=== PATIENT | male | born 1970 | race Caucasian/White ===

== ENCOUNTER 2017-04-02 13:02 | Emergency (ER) ==
[2017-04-02 13:10] VITALS: BP 115/82; TEMP 97; BMI 37.0
--- NOTE | 2017-04-02 13:18 | ED.PDOC ---
General ED Provider: Dr. RUKHSANA CANALES Chief Complaint: Knee Pain/Injury Stated Complaint: Left leg fell through porch floor. Right leg twisted at knee while bearing all his weight. Knee is very painful at rest and with any weight- bearing or ROM. PMH of right TKA. Time Seen by Physician: 13:15 Mode of Arrival: Wheelchair Information Source: Patient Primary Care Provider: JENSEN GOTTI Nursing and Triage Documentation Reviewed and Agree: Yes Musculoskeletal Complaint Exam - Knee Pain Complaint/Exam Mechanism of Injury: Reports: Trauma Onset/Duration: 2 hours Symptoms Are: Still present Onset of Pain: Reports: Immediate Initial Severity: Severe Current Severity: Severe Location: Reports: Diffuse Character: Reports: Sharp (sharp pain with any attempt at ROM or weight-bearing) , Aching, Throbbing Alleviating: Reports: Rest (pain eases up, not resolved) Aggravating: Reports: Movement, Weight bearing Associated Signs and Symptoms: Reports: Swelling Able to Bear Weight: Yes (with difficulty) Related History: Reports: Similar episode (right TKA 16 years ago) Septic Arthritis Risk Factors: Reports: Prosthesis (Right TKA 16 years ago) Gout Risk Factors: Reports: >40 years old, Male Related Surgical History: Reports: Right Knee Knee Findings: Present: Swelling, Tenderness (medial and lateral tenderness, mild patellar tenderness. Pain with any attempt at ROM. No gross deformity.), Limited range of motion Tenderness: Present: Joint Nadege Test Positive: No Rick Test Positive: No Limited Range of Motion: Present: Active, Passive, Flexion, Extension, Degrees ( any ROM increases pain) Differential Diagnoses: Closed Fracture, Sprain Review of Systems - Review Of Systems Constitutional: Reports: No symptoms Musculoskeletal: Reports: Joint pain (right knee), Joint swelling (right knee) Skin: Reports: No symptoms Neurological: Reports: No symptoms All Other Systems: Reviewed and Negative Past Medical History - Past Medical History Previously Healthy: Yes Endocrine: Reports: None Cardiovascular: Reports: None Respiratory: Reports: None Hematological: Reports: None Gastrointestinal: Reports: None Genitourinary: Reports: None Neuro/Psych: Reports: None Musculoskeletal: Reports: Arthritis (rheumatoid arthritis) Cancer: Reports: None - Surgical History General Surgical History: Reports: Orthopedic (right TKA) - Family History Family History: Reports: Unknown - Social History Smoking Status: Never smoker Hx Substance Use: No Alcohol Screening: Occasionally Lives: With family - Immunizations Tetanus Shot up to Date: No Influenza Vaccine within 12 Months: No Pneumococcal Vaccine up to Date: No Physical Exam - Physical Exam Appearance: Well-appearing, Well-nourished Ill-appearing: None Pain Distress: Moderate Musculoskeletal: Normal strength, No calf tenderness, Limited ROM (right knee pain with any attempt at ROM, active or passive), Edema (mild swelling about right knee bilaterally and prepatellar) Skin: Warm, Dry, Normal color Neurological: Sensation intact, Motor intact, Reflexes intact, Cranial nerves intact, Alert, Oriented Psychiatric: Affect appropriate, Mood appropriate Interpretation - Radiology Interpretation Radiology Interpretation By: Radiologist Radiology Results: Negative Exam Interpreted: Other Xray Comments: Right knee: no fractures, arthroplasty equipment normal in appearance Critical Care Note - Critical Care Note Total Time (mins): 0 Course - Course Orders, Labs, Meds: Orders Category Date Time Status KNEE, RIGHT 4 VIEWS Stat RADS 04/02/17 13:18 Completed Vital Signs: Temp Pulse Resp BP Pulse Ox 04/02/17 13:05 97.0 F L 80 16 115/82 96 Departure - Departure Time of Disposition: 14:05 Disposition: HOME SELF-CARE Discharge Problem: Right knee sprain Instructions: Knee Sprain (ED) Condition: Good Pt referred to PMD for follow-up: No (See doctor if no better in one week) Additional Instructions: No weight-bearing on right leg for one week (use crutches) Allergies/Adverse Reactions: Allergies terbinafine [From Lamisil] Adverse Reaction (Verified 04/02/17 13:05) Home Medications: Ambulatory Orders Acetaminophen with Codeine [Tylenol #3 Tab] 1 tab PO Q4H PRN #20 tablet Disposition Discussed With: Patient
--- NOTE | 2017-04-02 13:57 | DI ---
EXAM: Three views of the right knee HISTORY: Right knee twisting injury and arthroplasty. COMPARISON: None FINDINGS: Right knee arthroplasty hardware is present without evidence of hardware fracture or loosen ing. There is scattered degenerative disease. There is degenerative disease and osteophyte formatio n of the patella. Soft tissues are normal. IMPRESSION: 1. No displaced fracture or dislocation of the right knee. Right knee arthroplasty hardware normal in appearance. 2. Scattered degenerative disease.
== END 2017-04-02 14:15 | disposition home or self-care (01) ==
LOC: ED 13:02
DX: S83.91XA Sprain of unspecified site of right knee, initial encounter (principal); W17.2XXA Fall into hole, initial encounter; Z96.651 Presence of right artificial knee joint
CPT/HCPCS: 99283

== ENCOUNTER 2017-08-16 07:38 | Outpatient (CLI) ==
--- NOTE | 2017-08-16 08:53 | US ---
EXAM: Ultrasound retroperitoneal complete. HISTORY: Hematuria. COMPARISON: None available. TECHNIQUE: Multiple rowe scale and color Doppler images. FINDINGS: Right kidney measures 11.4 x 6.3 x 5.3 cm. The left kidney measures 12 x 6.2 x 6.1 cm. C ortical echogenicity is normal. There is no hydronephrosis. Urinary bladder is unremarkable. IMPRESSION: No acute sonographic abnormality of the kidneys or bladder.
== END 2017-08-16 07:39 | disposition home or self-care (01) ==
LOC: RAD 07:38
PROVIDERS: ATTEND Family Medicine
DX: R31.9 Hematuria, unspecified (principal)
CPT/HCPCS: 76770

== ENCOUNTER 2017-09-20 14:57 | Outpatient (CLI) ==
--- NOTE | 2017-09-20 15:36 | DI ---
EXAM: PA and lateral views of the chest HISTORY: Cough. COMPARISON: Chest x-ray 09/05/2010 FINDINGS: The cardiomediastinal silhouette is normal. There is no pneumothorax or pleural effusion. There is no consolidation, nodule or mass. The osseous structures demonstrate degenerative disease of the spine. IMPRESSION: No acute cardiopulmonary process
== END 2017-09-20 14:58 | disposition home or self-care (01) ==
LOC: RAD 14:57
PROVIDERS: ATTEND Family Medicine
DX: R05 Cough (principal)

== ENCOUNTER 2017-10-11 11:49 | Outpatient (CLI) ==
--- NOTE | 2017-10-11 13:04 | DI ---
EXAM: PA and lateral views of the chest HISTORY: Cough. COMPARISON: Chest x-ray 09/20/2017 and multiple priors FINDINGS: The cardiomediastinal silhouette is normal. There is no pneumothorax or pleural effusion. There is no consolidation, nodule or mass. The osseous structures are stable. IMPRESSION: No acute cardiopulmonary process
== END 2017-10-11 11:50 | disposition home or self-care (01) ==
LOC: RAD 11:49
PROVIDERS: ATTEND Family Medicine
DX: R05 Cough (principal)

== ENCOUNTER 2017-11-28 19:41 | Emergency (ER) ==
[2017-11-28 19:53] VITALS: BP 136/89; TEMP 98.6; BMI 33.9
--- NOTE | 2017-11-28 20:23 | ED.PDOC ---
General ED Provider: Dr. NIKOLAI RUSSELL Chief Complaint: Tooth Problem Stated Complaint: Patient is a 47 year old male who comes to ER stating iliana the broke the bottom part of his molar 2 days ago Now the pain is worse. Has an Apt to see Dentist Soon. Time Seen by Physician: 20:21 Mode of Arrival: Walk-In Information Source: Patient Primary Care Provider: JENSEN GOTTI Nursing and Triage Documentation Reviewed and Agree: Yes Reviewed sepsis parameters & appropriate labs ordered?: No System Inflammatory Response Syndrome: Not Applicable Sepsis Protocol: For patient's 13 years and over: Temp is 96.8 and below OR 101 and greater Pulse >90 BPM Resp >20/minute Acutely Altered Mental Status Are patient's symptoms suggestive of a new infection, such as: -Pneumonia -Skin, Soft Tissue -Endocarditis -UTI -Bone, Joint Infection -Implantable Device -Acute Abdominal Infection -Wound Infection -Meningitis -Blood Stream Catheter Infection -Unknown System Inflammatory Response Syndrome: Not Applicable EENT Complaint Exam - Dental/Oral Complaint/Exam Mechanism of Injury: No known trauma Onset/Duration: 2 days ago Symptoms Are: Still present Timing: Constant Initial Severity: Moderate Current Severity: Severe Location: Right lower molar Character: Reports: Aching, Throbbing Aggravating: Reports: Heat, Cold, Chewing Alleviating: Reports: None Associated Signs and Symptoms: Reports: Swelling Cardiac Risk Factors: Reports: None Tooth Findings: Present: Gross decay, Dental fracture Cervical Lymphadenopathy Present: No Facial Swelling Present: No Bleeding Present: No Oropharynx Findings: Absent: Clots, Active bleeding Septal Hematoma: No Foreign Body Present: No Dysphagia Present: No Drooling Present: No Asymmetrical Tonsillar Swelling Present: No Uvula Midline: No Jennifer-tonsillar Fluctuence: No Trismus Present: No Palatal Petechiae Present: No Scarlatinaform Rash Present: No Lesions: Absent: Lip, Gums, Tongue, Buccal Mucosa, Pharynx Exanthem: Absent: Lip, Gums, Tongue, Buccal Mucosa, Pharynx Vesicles: Absent: Lip, Gums, Tongue, Buccal Mucosa, Pharynx Teeth Picture: 1 - Fractured Differential Diagnoses: Dental Caries, Fractured Tooth Review of Systems - Review Of Systems Constitutional: Reports: No symptoms Eyes: Reports: No symptoms Ears, Nose, Mouth, Throat: Reports: Mouth pain Respiratory: Reports: No symptoms Cardiac: Reports: No symptoms GI: Reports: No symptoms : Reports: No symptoms All Other Systems: Reviewed and Negative Past Medical History - Past Medical History Previously Healthy: Yes Endocrine: Reports: None Cardiovascular: Reports: None Respiratory: Reports: None Hematological: Reports: None Gastrointestinal: Reports: None Genitourinary: Reports: None Neuro/Psych: Reports: None Musculoskeletal: Reports: Arthritis (rheumatoid arthritis) Cancer: Reports: None - Surgical History General Surgical History: Reports: Orthopedic (right TKA) - Family History Family History: Reports: Unknown - Social History Smoking Status: Never smoker Hx Substance Use: No Alcohol Screening: Occasionally - Immunizations Tetanus Shot up to Date: Yes Influenza Vaccine within 12 Months: No Pneumococcal Vaccine up to Date: No Physical Exam - Physical Exam Appearance: Ill-appearing Pain Distress: Moderate Eyes: PAWEL, EOMI, Conjunctiva clear ENT: Ears normal, Nose normal, Oropharynx normal Neck: Supple Respiratory: Airway patent, Breath sounds clear, Breath sounds equal, Respirations nonlabored Cardiovascular: RRR, Pulses normal, No rub, No murmur GI/: Soft, Nontender, No masses, Bowel sounds normal, No Organomegaly Musculoskeletal: Normal strength, ROM intact, No edema, No calf tenderness Skin: Warm, Dry, Normal color Neurological: Sensation intact, Motor intact, Reflexes intact, Cranial nerves intact, Alert, Oriented Psychiatric: Affect appropriate, Mood appropriate Critical Care Note - Critical Care Note Total Time (mins): 0 Course - Course Vital Signs: Temp Pulse Resp BP Pulse Ox 11/28/17 19:41 98.6 F 88 14 136/89 95 Departure - Departure Time of Disposition: 20:22 Disposition: HOME SELF-CARE Discharge Problem: Dental abscess, Pain, dental Instructions: Dental Abscess (ED), Toothache (ED) Condition: Stable Pt referred to PMD for follow-up: Yes IPMP verified?: Yes Additional Instructions: Take Medications as prescribed. Follow up with Your dentist in 3 days Prescriptions: Amoxicillin [Amoxil] 500 mg PO TID #30 capsule Ibuprofen [Motrin] 600 mg PO Q6H PRN #30 tablet PRN Reason: Analgesia Allergies/Adverse Reactions: Allergies terbinafine [From Lamisil] Adverse Reaction (Verified 11/28/17 19:45) Home Medications: Ambulatory Orders Amoxicillin [Amoxil] 500 mg PO TID #30 capsule 11/28/17 Ibuprofen [Motrin] 600 mg PO Q6H PRN #30 tablet 11/28/17 Methotrexate Sodium [Methotrexate] 2.5 mg PO DAILY 11/28/17 Prednisone 5 mg PO DAILY 11/28/17 Disposition Discussed With: Patient
[2017-11-28] MEDS ORDERED: AMOXIL PO STA (20:27)
[2017-11-28] MEDS ORDERED: MOTRIN PO STA (20:27)
== END 2017-11-28 20:35 | disposition home or self-care (01) ==
LOC: ED 19:41
DX: K04.7 Periapical abscess without sinus (principal); K08.89 Other specified disorders of teeth and supporting structures; S02.5XXA Fracture of tooth (traumatic), initial encounter for closed fracture; K02.7 Dental root caries
CPT/HCPCS: 99282

== ENCOUNTER 2018-01-21 07:55 | Day surgery (SDC) ==
[2018-01-21] MEDS ORDERED: LIDOCAINE 1% 20 ML MDV ID STA (09:34)
[2018-01-21] MEDS ORDERED: DIPRIVAN 20 ML VIAL IVP ONE (10:45)
[2018-01-21] MEDS ORDERED: VERSED ONE (10:45)
[2018-01-21] MEDS ORDERED: ANECTINE ONE (10:45)
[2018-01-21] MEDS ORDERED: SUBLIMAZE ONE (10:45)
[2018-01-21 11:56] VITALS: BP 96/64; TEMP 97.8
--- NOTE | 2018-01-25 09:35 | OP ---
PREOPERATIVE DIAGNOSIS: RULE OUT CARCINOMA BASE OF THE TONGUE POSTOPERATIVE DIAGNOSIS: INFLAMMATION OF TONGUE OPERATION: DIRECT LARYNGOSCOPY, BIOPSY AND EXTRACT OF MOLAR TOOTH. PROCEDURE: The patient was taken to surgery, placed on the table and general anesthesia was administered. Anterior laryngoscope was inserted down to the vocal cords which revealed no evidence of edema. The epiglottis appeared to be free of disease. The scope was removed and through the scope the area of irritation at the base of the tongue was biopsied and sent off for permanent section. The right lower molar was then grasped with dental forceps and then extracted. Bleeding controlled with packing. The patient was then extubated and return to the recovery room in satisfactory condition. YENNY
== END 2018-01-21 12:10 | disposition home or self-care (01) ==
LOC: SURG 07:55
PROVIDERS: ATTEND Otolaryngology
DX: K14.0 Glossitis (principal)

== ENCOUNTER 2018-01-26 16:08 | Outpatient (CLI) | END 2018-01-26 16:09 | disposition home or self-care (01) | LOC: RHC-LAB 16:08 | PROVIDERS: ATTEND Emergency Medicine | DX: M19.90 Unspecified osteoarthritis, unspecified site (principal); E66.9 Obesity, unspecified; E78.5 Hyperlipidemia, unspecified | CPT/HCPCS: 36415; 80053; 80061; 84443; 85025 ==

== ENCOUNTER 2018-02-25 03:09 | Emergency (ER) ==
[2018-02-25 03:15] VITALS: BP 132/88; TEMP 97.4; BMI 28.5
--- NOTE | 2018-02-25 03:39 | ED.PDOC ---
General ED Provider: Dr. NIKOLAI RUSSELL Chief Complaint: Nausea/Vomiting Stated Complaint: Patient is a 47 year old male who complains of a sudden onset of nausea/vomiting x 5 since 0100 tonight with Mid to right sided abdominal pain which he describes as cramping and that it radiates to right side of back. He states that he ate some pork chops and potatoes. Denies any EOTH or drugs. Time Seen by Physician: 03:37 Mode of Arrival: Wheelchair Information Source: Patient Exam Limitations: No limitations Primary Care Provider: JENSEN GOTTI Nursing and Triage Documentation Reviewed and Agree: Yes Does patient meet sepsis criteria?: No If yes, has appropriate treatment been initiated?: No System Inflammatory Response Syndrome: Not Applicable Sepsis Protocol: For patient's 13 years and over: Temp is 96.8 and below OR 101 and greater Pulse >90 BPM Resp >20/minute Acutely Altered Mental Status Are patient's symptoms suggestive of a new infection, such as: -Pneumonia -Skin, Soft Tissue -Endocarditis -UTI -Bone, Joint Infection -Implantable Device -Acute Abdominal Infection -Wound Infection -Meningitis -Blood Stream Catheter Infection -Unknown GI Complaint Exam - Abdominal Pain Complaint/Exam Onset: Sudden Duration: 1 and half hours Symptoms Are: Still present Timing: Constant Initial Severity: Severe Current Severity: Severe Location of Pain: RUQ, RLQ Radiates To: Reports: Back Character: Reports: Cramping Alleviating: Reports: None Associated Signs and Symptoms: Reports: Back pain, Nausea, Vomiting. Denies: Chest pain, Constipation AAA Risk Factors: Reports: None Cardiac Risk Factors: Reports: None Testicular Torsion Risk Factors: Reports: None Surgical Obstruction Risk Factors: Reports: None Related Surgical History: Reports: None Abdominal Findings: Present: Other (Diffuse abdominal tenderness with guarding. ) Differential Diagnoses: Appendicitis, Bowel Obstruction, Constipation, Diverticulitis, Gastroenteritis, Pancreatitis, PUD, UTI Review of Systems - Review Of Systems Constitutional: Reports: No symptoms Eyes: Reports: No symptoms Ears, Nose, Mouth, Throat: Reports: No symptoms Respiratory: Reports: No symptoms Cardiac: Reports: No symptoms GI: Reports: Abdominal pain, Nausea, Vomiting : Reports: No symptoms Musculoskeletal: Reports: No symptoms Skin: Reports: No symptoms Neurological: Reports: Anxiety Endocrine: Reports: No symptoms Hematologic/Lymphatic: Reports: No symptoms All Other Systems: Reviewed and Negative Past Medical History - Past Medical History Previously Healthy: Yes Endocrine: Reports: None Cardiovascular: Reports: None Respiratory: Reports: None Hematological: Reports: None Gastrointestinal: Reports: None Genitourinary: Reports: None Neuro/Psych: Reports: None Musculoskeletal: Reports: Arthritis (rheumatoid arthritis) Cancer: Reports: None - Surgical History General Surgical History: Reports: Orthopedic (right TKA). Denies: Appendectomy , Cholecystectomy - Family History Family History: Reports: Unknown - Social History Smoking Status: Never smoker Hx Substance Use: No Alcohol Screening: None - Immunizations Tetanus Shot up to Date: Yes Influenza Vaccine within 12 Months: No Pneumococcal Vaccine up to Date: No Physical Exam - Physical Exam Appearance: Ill-appearing Ill-appearing: Moderate Pain Distress: Severe Eyes: PAWEL, EOMI, Conjunctiva clear Neck: Supple Respiratory: Airway patent, Breath sounds clear, Breath sounds equal, Respirations nonlabored Cardiovascular: RRR, Pulses normal, No rub, No murmur GI/: Tender (diffusely ) Musculoskeletal: Normal strength, ROM intact, No edema, No calf tenderness Skin: Warm, Dry, Normal color Neurological: Alert, Oriented Psychiatric: Anxious Critical Care Note - Critical Care Note Total Time (mins): 0 Course - Course Hematology/Chemistry: 02/25/18 03:55 02/25/18 03:55 Orders, Labs, Meds: Lab Review 02/25/18 02/25/18 03:55 03:55 WBC 11.36 H RBC 4.44 L Hgb 12.8 L Hct 38.7 L MCV 87.2 MCH 28.8 MCHC 33.1 RDW Coeff of Shivam 15.5 H Plt Count 285 Immature Gran % (Auto) 0.4 Neut % (Auto) 73.9 Lymph % (Auto) 17.9 [place] % (Auto) 5.7 Eos % (Auto) 1.7 Baso % (Auto) 0.4 Immature Gran # (Auto) 0.1 Neut # (Auto) 8.4 H Lymph # (Auto) 2.0 [place] # (Auto) 0.7 Eos # (Auto) 0.2 Baso # (Auto) 0.0 Sodium 140 Potassium 3.6 Chloride 110 H Carbon Dioxide 21 Anion Gap 12.6 BUN 19 H Creatinine 0.84 Estimated GFR (MDRD) 98.00 BUN/Creatinine Ratio 22.61 Glucose 105 H Calcium 9.3 Total Bilirubin 1.0 AST 25 ALT 28 Alkaline Phosphatase 90 Total Protein 8.7 H Albumin 3.0 L Globulin 5.7 Albumin/Globulin Ratio 0.53 Amylase 66 Lipase 38 Orders Category Date Time Status ED IV/MEDIPORT/POWERPORT .ONCE EMERGENCY 02/25/18 03:35 Active AMYLASE Stat LAB 02/25/18 03:55 Completed CBC W/ AUTO DIFF Stat LAB 02/25/18 03:55 Completed COMPREHENSIVE METABOLIC PANEL Stat LAB 02/25/18 03:55 Completed LIPASE Stat LAB 02/25/18 03:55 Completed URINALYSIS C & S IF INDICATED Stat LAB 02/25/18 03:35 Uncollected 0.9 % Sodium Chloride [Saline Flush] MEDS 02/25/18 03:35 Ordered 1 syr IVF PRN PRN Dicyclomine Inj [Bentyl] MEDS 02/25/18 03:48 Discontinued 20 mg IM ONCE STA Ketorolac Tromethamine [Toradol] MEDS 02/25/18 03:35 Discontinued 30 mg IVP ONCE STA Ondansetron HCl/Pf [Zofran 4 mg/2 ml] MEDS 02/25/18 03:35 Discontinued 4 mg IVP ONCE STA Pantoprazole Sodium [Protonix IV] MEDS 02/25/18 03:35 Discontinued 40 mg IVP ONCE STA Sodium Chloride 0.9% [Sodium Chloride] 1,000 ml MEDS 02/25/18 03:[address] ABD/PEL WO RENAL STONE PROT Stat RADS 02/25/18 03:35 Taken Medications Generic Name Dose Route Start Last Admin Trade Name Freq PRN Reason Stop Dose Admin Sodium Chloride 1,000 mls @ 1,000 mls/hr 02/25/18 03:35 02/25/18 04:13 Sodium Chloride IV 02/25/18 04:34 1,000 mls/hr BOLUS STA Administration Sodium Chloride 1 syr 02/25/18 03:35 Saline Flush IVF PRN PRN To flush IV Discontinued Medications Generic Name Dose Route Start Last Admin Trade Name Freq PRN Reason Stop Dose Admin Dicyclomine HCl 20 mg 02/25/18 03:48 02/25/18 04:09 Bentyl IM 02/25/18 03:49 20 mg ONCE STA Administration Ketorolac Tromethamine 30 mg 02/25/18 03:35 02/25/18 04:13 Toradol IVP 02/25/18 03:36 30 mg ONCE STA Administration Ondansetron HCl 4 mg 02/25/18 03:35 02/25/18 04:13 Zofran 4 Mg/2 Ml IVP 02/25/18 03:36 4 mg ONCE STA Administration Pantoprazole Sodium 40 mg 02/25/18 03:35 02/25/18 04:12 Protonix Iv IVP 02/25/18 03:36 40 mg ONCE STA Administration Vital Signs: Temp Pulse Resp BP Pulse Ox 02/25/18 03:10 97.4 F L 93 H 22 132/88 98 Departure - Departure Time of Disposition: 05:15 Disposition: HOME SELF-CARE Discharge Problem: Nausea, Vomiting, Gastritis and duodenitis Instructions: Gastritis (ED), Duodenitis (ED) Condition: Fair Pt referred to PMD for follow-up: Yes IPMP verified?: No Additional Instructions: Push Fluids and Electrolytes Take medications as prescribed Follow up with PCP in 3 days Prescriptions: Dicyclomine HCl [Bentyl] 10 mg PO TID PRN #20 capsule PRN Reason: Abdominal Pain Ondansetron HCl [Zofran Tab] 4 mg PO Q8H PRN #14 tablet PRN Reason: Nausea / Vomiting Allergies/Adverse Reactions: Allergies terbinafine [From Lamisil] Adverse Reaction (Verified 02/25/18 03:15) Vomiting Home Medications: Ambulatory Orders Ibuprofen [Motrin] 600 mg PO Q6H PRN #30 tablet 11/28/17 Methotrexate Sodium [Methotrexate] 2.5 mg PO WEEKLY 11/28/17 Dicyclomine HCl [Bentyl] 10 mg PO TID PRN #20 capsule 02/25/18 Ondansetron HCl [Zofran Tab] 4 mg PO Q8H PRN #14 tablet 02/25/18 Disposition Discussed With: Patient, Family
[2018-02-25] MEDS: BENTYL IM STA (04:09)
[2018-02-25] MEDS: PROTONIX IV IVP STA (04:12)
[2018-02-25] MEDS: SODIUM CHLORIDE 1,000 ML IV STA (04:13)
[2018-02-25] MEDS: TORADOL IVP STA (04:13)
[2018-02-25] MEDS: ZOFRAN 4 MG/2 ML IVP STA (04:13)
--- NOTE | 2018-02-25 05:07 | CT ---
Exam: CT of the abdomen and pelvis without contrast History: Abdominal pain Technique: [address] of the abdomen and pelvis without intravascular contrast FINDINGS: The lung bases are clear. No significant liver abnormality. The adrenals, pancreas and spl een are unremarkable. The stomach and hiatus are unremarkable.Cholelithiasis with possible gallbladde r wall thickening and pericholecystic inflammation. Kidneys and proximal collecting system are unrema rkable. The appendix is normal. Bowel loops demonstrate normal caliber. No inflamatory change seen in the mesentery or retroperitoneum. Vascular structures appear normal. Pelvic genitourinary structures appear normal. Pelvic bowel loops are unremarkable. No inflammatory c hange in the pelvic fat. No acute abnormality of the abdominal or pelvic skeleton. Impression: 1. Cholelithiasis with distended gallbladder, suspected gallbladder wall thickening and subtle peric holecystic inflammation. Correlate for cholecystitis. 2. No acute findings of the abdomen or pelvis otherwise.
[2018-02-25] MEDS: DEMEROL 25 MG/ML VIAL IVP STA (05:19)
== END 2018-02-25 05:20 | disposition home or self-care (01) ==
LOC: ED 03:09
DX: K29.70 Gastritis, unspecified, without bleeding (principal); K29.80 Duodenitis without bleeding
CPT/HCPCS: 36415; 74176; 80053; 82150; 83690; 85025; 96361; 96372; 96375; 99283

== ENCOUNTER 2018-03-28 13:43 | Outpatient (CLI) | END 2018-03-28 13:44 | disposition home or self-care (01) | LOC: RHC-LAB 13:43 | PROVIDERS: ATTEND Nurse Practitioner Family | DX: R61 Generalized hyperhidrosis (principal); R63.8 Other symptoms and signs concerning food and fluid intake; R11.2 Nausea with vomiting, unspecified | CPT/HCPCS: 36415; 80053; 85025 ==

== ENCOUNTER 2018-07-14 11:55 | Emergency (ER) ==
[2018-07-14 12:00] VITALS: BP 116/80; TEMP 98.6; BMI 31.1
--- NOTE | 2018-07-14 12:25 | ED.PDOC ---
General ED Provider: Dr. ANDRE MEJIA Chief Complaint: Hand Pain/Injury Stated Complaint: LEFT HAND PAIN NONE INJURY HISTORY OF R.A. Time Seen by Physician: 12:00 (SEE PHOTOS NO INJURY NURSE PRESENT ) Information Source: Patient Exam Limitations: No limitations Primary Care Provider: MEGAN MAY Nursing and Triage Documentation Reviewed and Agree: Yes Does patient meet sepsis criteria?: No System Inflammatory Response Syndrome: Not Applicable Sepsis Protocol: For patient's 13 years and over: Temp is 96.8 and below OR 101 and greater Pulse >90 BPM Resp >20/minute Acutely Altered Mental Status Are patient's symptoms suggestive of a new infection, such as: -Pneumonia -Skin, Soft Tissue -Endocarditis -UTI -Bone, Joint Infection -Implantable Device -Acute Abdominal Infection -Wound Infection -Meningitis -Blood Stream Catheter Infection -Unknown Musculoskeletal Complaint Exam - Hand/Wrist Complaint/Exam Location of Pain: Reports: Left, Hand Mechanism of Injury: Reports: No known trauma Onset/Duration: TODAY BUT CHRONIC ISSUE Symptoms Are: Still present Onset of Pain: Reports: Hours Initial Severity: Moderate Current Severity: Mild Location: Reports: Discrete Character: Reports: Aching Alleviating: Reports: Rest Aggravating: Reports: Movement Differential Diagnoses: Tendonitis, Other (RA FLARE UP) Review of Systems - Review Of Systems Constitutional: Reports: No symptoms Eyes: Reports: No symptoms Ears, Nose, Mouth, Throat: Reports: No symptoms Respiratory: Reports: No symptoms Cardiac: Reports: No symptoms GI: Reports: No symptoms : Reports: No symptoms Musculoskeletal: Reports: Joint pain (HAND LEFT) Skin: Reports: No symptoms Neurological: Reports: No symptoms Endocrine: Reports: No symptoms Hematologic/Lymphatic: Reports: No symptoms All Other Systems: Reviewed and Negative Past Medical History - Past Medical History Previously Healthy: Yes Endocrine: Reports: None Cardiovascular: Reports: None Respiratory: Reports: None Hematological: Reports: None Gastrointestinal: Reports: None Genitourinary: Reports: None Neuro/Psych: Reports: None Musculoskeletal: Reports: Arthritis (rheumatoid arthritis) Cancer: Reports: None - Surgical History General Surgical History: Reports: Orthopedic (right TKA). Denies: Appendectomy , Cholecystectomy - Family History Family History: Reports: Unknown - Social History Smoking Status: Former smoker Hx Substance Use: No Alcohol Screening: None - Immunizations Tetanus Shot up to Date: Yes Influenza Vaccine within 12 Months: No Pneumococcal Vaccine up to Date: No Physical Exam - Physical Exam Appearance: Well-appearing, No pain distress, Well-nourished Eyes: PAWEL, EOMI, Conjunctiva clear ENT: Ears normal, Nose normal, Oropharynx normal Respiratory: Airway patent, Breath sounds clear, Breath sounds equal, Respirations nonlabored Cardiovascular: RRR, Pulses normal, No rub, No murmur GI/: Soft, Nontender, No masses, Bowel sounds normal, No Organomegaly Musculoskeletal: Limited ROM (SEE PHOTOS) Skin: Warm, Dry Neurological: Sensation intact, Motor intact, Reflexes intact, Cranial nerves intact, Alert, Oriented Psychiatric: Affect appropriate, Mood appropriate Critical Care Note - Critical Care Note Total Time (mins): 0 Course - Course Vital Signs: Temp Pulse Resp BP Pulse Ox 07/14/18 11:55 98.6 F 74 18 116/80 98 Departure - Departure Time of Disposition: 12:25 Disposition: HOME SELF-CARE Discharge Problem: Arthritis, rheumatoid Qualifiers: Rheumatoid arthritis location: hand Rheumatoid factor presence: unspecified presence Laterality: left Qualified Code(s): M06.9 - Rheumatoid arthritis, unspecified Instructions: Rheumatoid Arthritis (ED) Condition: Good Pt referred to PMD for follow-up: Yes IPMP verified?: No Additional Instructions: Please call your Family Physician as soon as possible to schedule a follow-up appointment. Prescriptions: Hydrocodone/Acetaminophen [[place] 10-325 Tablet] 1 each PO Q8HR #7 tablet Allergies/Adverse Reactions: Allergies terbinafine [From Lamisil] Adverse Reaction (Verified 02/25/18 03:15) Vomiting Home Medications: Ambulatory Orders Ibuprofen [Motrin] 600 mg PO Q6H PRN #30 tablet 11/28/17 Hydrocodone/Acetaminophen [[place] 10-325 Tablet] 1 each PO Q8HR #7 tablet
== END 2018-07-14 12:32 | disposition home or self-care (01) ==
LOC: ED 11:55
DX: M06.9 Rheumatoid arthritis, unspecified (principal)
CPT/HCPCS: 99282

== ENCOUNTER 2018-07-21 05:51 | Emergency (ER) ==
[2018-07-21 05:53] VITALS: BP 124/76; TEMP 97.6; BMI 33.9
--- NOTE | 2018-07-21 06:14 | ED.PDOC ---
General ED Provider: Dr. NIKOLAI RUSSELL Chief Complaint: Rash Stated Complaint: Patient is a 48 year old who complains of rash on the Torso, Arms and abdomen that started 1-2 days ago. Time Seen by Physician: 06:12 Mode of Arrival: Walk-In Information Source: Patient Exam Limitations: No limitations Primary Care Provider: MEGAN MAY Nursing and Triage Documentation Reviewed and Agree: Yes Does patient meet sepsis criteria?: No System Inflammatory Response Syndrome: Not Applicable Sepsis Protocol: For patient's 13 years and over: Temp is 96.8 and below OR 101 and greater Pulse >90 BPM Resp >20/minute Acutely Altered Mental Status Are patient's symptoms suggestive of a new infection, such as: -Pneumonia -Skin, Soft Tissue -Endocarditis -UTI -Bone, Joint Infection -Implantable Device -Acute Abdominal Infection -Wound Infection -Meningitis -Blood Stream Catheter Infection -Unknown Skin Complaint Exam - Skin Rash/Itching Complaint/Exam Onset/Duration: 2 days Symptoms Are: Still present Initial Severity: Moderate Current Severity: Moderate Location: Torsor area and left forearms Potential Exposures: Reports: Unknown Aggravating: Reports: None Alleviating: Reports: None Associated Signs and Symptoms: Denies: Difficulty breathing, Fever, Chills Skin Findings: Present: Urticaria, Maculae, Papules Differential Diagnoses: Allergic Reaction, Contact Dermatitis Review of Systems - Review Of Systems Constitutional: Reports: No symptoms Ears, Nose, Mouth, Throat: Reports: No symptoms Respiratory: Reports: No symptoms Cardiac: Reports: No symptoms GI: Reports: No symptoms : Reports: No symptoms Musculoskeletal: Reports: No symptoms Skin: Reports: Rash All Other Systems: Reviewed and Negative Past Medical History - Past Medical History Previously Healthy: Yes Endocrine: Reports: None Cardiovascular: Reports: None Respiratory: Reports: None Hematological: Reports: None Gastrointestinal: Reports: None Genitourinary: Reports: None Neuro/Psych: Reports: None Musculoskeletal: Reports: Arthritis (rheumatoid arthritis) Cancer: Reports: None - Surgical History General Surgical History: Reports: Orthopedic (right TKA). Denies: Appendectomy , Cholecystectomy - Family History Family History: Reports: Unknown - Social History Smoking Status: Never smoker Hx Substance Use: No Alcohol Screening: None - Immunizations Tetanus Shot up to Date: Yes Influenza Vaccine within 12 Months: No Pneumococcal Vaccine up to Date: No Physical Exam - Physical Exam Appearance: Obese Eyes: PAWEL, EOMI, Conjunctiva clear Neck: Supple Respiratory: Airway patent, Breath sounds clear, Breath sounds equal, Respirations nonlabored Cardiovascular: RRR, Pulses normal, No rub, No murmur GI/: Soft, Nontender, No masses, Bowel sounds normal, No Organomegaly Musculoskeletal: Normal strength Skin: Warm, Dry Neurological: Sensation intact, Motor intact, Reflexes intact, Cranial nerves intact, Alert, Oriented Psychiatric: Anxious Critical Care Note - Critical Care Note Total Time (mins): 0 Course - Course Orders, Labs, Meds: Orders Category Date Time Status Loratadine [Claritin] MEDS 07/21/18 06:23 Discontinued 10 mg PO ONCE STA Methylprednisolone Sod Succ/Pf [Solu-Medrol 125 mg] MEDS 07/21/18 06:22 Discontinued 125 mg IM ONCE STA Medications Discontinued Medications Generic Name Dose Route Start Last Admin Trade Name Freq PRN Reason Stop Dose Admin Loratadine 10 mg 07/21/18 06:23 07/21/18 06:32 Claritin PO 07/21/18 06:24 10 mg ONCE STA Administration Methylprednisolone Sodium Succinate 125 mg 07/21/18 06:22 07/21/18 06:31 Solu-Medrol 125 Mg IM 07/21/18 06:23 125 mg ONCE STA Administration Vital Signs: Temp Pulse Resp BP Pulse Ox 07/21/18 05:51 97.6 F 78 18 124/76 97 Departure - Departure Time of Disposition: 06:50 Disposition: HOME SELF-CARE Discharge Problem: Dermatitis, Pruritic rash Instructions: Dermatitis (ED) Condition: Fair Pt referred to PMD for follow-up: Yes IPMP verified?: No Additional Instructions: Take Medications as prescribed Follow up with PCP in 3 day Take over the counter Benadryl. ever6 hours as needed for itching. Take over the counter zantac as needed for itching. Prescriptions: Prednisone 20 mg PO DAILYWM #5 tablet Allergies/Adverse Reactions: Allergies terbinafine [From Lamisil] Adverse Reaction (Verified 07/21/18 05:53) Vomiting Home Medications: Ambulatory Orders Prednisone 20 mg PO DAILYWM #5 tablet 07/21/18 Disposition Discussed With: Patient
[2018-07-21] MEDS ORDERED: SOLU-MEDROL 125 MG IM STA (06:22)
[2018-07-21] MEDS ORDERED: CLARITIN PO STA (06:23)
== END 2018-07-21 07:17 | disposition home or self-care (01) ==
LOC: ED 05:51
DX: L30.9 Dermatitis, unspecified (principal)
CPT/HCPCS: 96372; 99282

== ENCOUNTER 2018-08-05 12:59 | Emergency (ER) ==
[2018-08-05 13:03] VITALS: BP 144/86; TEMP 97.6; BMI 30.5
== END 2018-08-05 14:30 | disposition left against medical advice (07) ==
LOC: ED 12:59
DX: R10.9 Unspecified abdominal pain (principal); R19.7 Diarrhea, unspecified

== ENCOUNTER 2018-08-05 17:49 | Emergency (ER) ==
[2018-08-05 18:00] VITALS: BP 150/70; TEMP 97.5; BMI 34.3
[2018-08-05] MEDS ORDERED: SODIUM CHLORIDE 1,000 ML IV STA (18:32)
[2018-08-05] MEDS ORDERED: DEMEROL 25 MG/ML VIAL IVP STA (18:32)
[2018-08-05] MEDS ORDERED: ZOFRAN 4 MG/2 ML IVP STA (18:32)
--- NOTE | 2018-08-05 19:41 | CT ---
EXAM: CT abdomen pelvis without contrast HISTORY: Abdominal pain and vomiting COMPARISON: CT abdomen pelvis 02/26/1929 TECHNIQUE: Serial axial images of the abdomen pelvis were performed from the lung bases through the inferior pelvis without contrast. These were viewed in multiple planes. FINDINGS: Lung bases are clear. Evaluation is limited due to lack of contrast. The liver is unremarkable. The gallbladder is minima lly distended. The adrenal glands are unremarkable. The kidneys are unremarkable. The spleen is no rmal. New pancreas is normal. Stomach is distended. Small bowel in the abdomen pelvis is unremarkable. The colon is unremarkable. No evidence of append icitis. The there are scattered nonenlarged mesenteric lymph nodes. Urinary bladder is distended. Prostate is normal. Osseous structures demonstrate multilevel scattered degenerative disease. IMPRESSION: The 1. No acute intra-abdominal or pelvic process to account for patient's symptoms. 2. Scattered mesenteric lymph nodes may represent reactive changes versus lymphadenitis.
--- NOTE | 2018-08-05 20:03 | ED.PDOC ---
General ED Provider: Dr. LAYNE MENEZES-ER Chief Complaint: Nausea/Vomiting Stated Complaint: nakul had vomiting and loose stools Time Seen by Physician: 19:00 Mode of Arrival: Walk-In Information Source: Patient Exam Limitations: No limitations Primary Care Provider: JENSEN GOTTI Nursing and Triage Documentation Reviewed and Agree: Yes Does patient meet sepsis criteria?: No System Inflammatory Response Syndrome: Not Applicable Sepsis Protocol: For patient's 13 years and over: Temp is 96.8 and below OR 101 and greater Pulse >90 BPM Resp >20/minute Acutely Altered Mental Status Are patient's symptoms suggestive of a new infection, such as: -Pneumonia -Skin, Soft Tissue -Endocarditis -UTI -Bone, Joint Infection -Implantable Device -Acute Abdominal Infection -Wound Infection -Meningitis -Blood Stream Catheter Infection -Unknown GI Complaint Exam - Vomiting/Diarrhea Complaint/Exam Onset/Duration: 24 hrs Symptoms Are: Still present Initial Severity: Mild Current Severity: Mild Character of Vomiting: Reports: Bilious Character of Diarrhea: Reports: Watery Aggravating: Reports: None Alleviating: Reports: None Associated Signs and Symptoms: Reports: Cramping. Denies: Dizziness, Light- headedness, Melena, Hematemesis, Fever, Abdominal pain Prostate Exam: Nontender Kussmaul Respirations Present: No Differential Diagnoses: Dehydration, Viral Gastroenteritis, Bacterial Gastroenteritis Review of Systems - Review Of Systems Constitutional: Reports: No symptoms Eyes: Reports: No symptoms Ears, Nose, Mouth, Throat: Reports: No symptoms Respiratory: Reports: No symptoms Cardiac: Reports: No symptoms GI: Reports: Abdominal pain, Diarrhea, Nausea, Vomiting : Reports: No symptoms Musculoskeletal: Reports: No symptoms Skin: Reports: No symptoms Neurological: Reports: No symptoms Endocrine: Reports: No symptoms Hematologic/Lymphatic: Reports: No symptoms All Other Systems: Reviewed and Negative Past Medical History - Past Medical History Previously Healthy: Yes Endocrine: Reports: None Cardiovascular: Reports: None Respiratory: Reports: None Hematological: Reports: None Gastrointestinal: Reports: None Genitourinary: Reports: None Neuro/Psych: Reports: None Musculoskeletal: Reports: Arthritis (rheumatoid arthritis) Cancer: Reports: None - Surgical History General Surgical History: Reports: Orthopedic (right TKA). Denies: Appendectomy , Cholecystectomy - Family History Family History: Reports: Unknown - Social History Smoking Status: Former smoker Hx Substance Use: No Alcohol Screening: None - Immunizations Influenza Vaccine within 12 Months: No Pneumococcal Vaccine up to Date: No Physical Exam - Physical Exam Appearance: Well-appearing, No pain distress, Well-nourished Eyes: PAWEL, EOMI, Conjunctiva clear ENT: Ears normal, Nose normal, Oropharynx normal Neck: Supple Respiratory: Airway patent, Breath sounds clear, Breath sounds equal, Respirations nonlabored Cardiovascular: RRR GI/: Soft Musculoskeletal: Normal strength Skin: Warm, Dry, Normal color Neurological: Sensation intact, Motor intact, Reflexes intact, Cranial nerves intact, Alert, Oriented Psychiatric: Affect appropriate, Mood appropriate Interpretation - Radiology Interpretation Radiology Interpretation By: Radiologist Radiology Results: Negative Exam Interpreted: CT Scan - EKG Interpretation Time of EKG #1: 20:02 Rate: Normal Rhythm: Sinus Ectopy: None Edson: NL ST Segment: Normal Interpretation: nsr Re-Evaluation - Re-Evaluation Time of Re-Evaluation: 20:02 Status: Improved Vital Signs Stable: Yes Pain Level: 0 Appearance: NAD Lungs: Clear Skin: Warm and Dry Neuro: Alert and Oriented X3 CV: RRR Critical Care Note - Critical Care Note Total Time (mins): 0 Course - Course Hematology/Chemistry: 08/05/18 18:45 08/05/18 18:45 Orders, Labs, Meds: Lab Review 08/05/18 08/05/18 08/05/18 18:45 18:45 18:45 WBC 7.32 RBC 4.63 L Hgb 12.3 L Hct 39.5 L MCV 85.3 MCH 26.6 L MCHC 31.1 L RDW Coeff of Shivam 17.8 H Plt Count 318 Immature Gran % (Auto) 0.5 Neut % (Auto) 70.2 Lymph % (Auto) 20.8 [place] % (Auto) 5.3 Eos % (Auto) 2.7 Baso % (Auto) 0.5 Immature Gran # (Auto) 0.0 Neut # (Auto) 5.1 Lymph # (Auto) 1.5 [place] # (Auto) 0.4 Eos # (Auto) 0.2 Baso # (Auto) 0.0 Sodium 139.8 Potassium 4.66 Chloride 104.3 Carbon Dioxide 25.6 Anion Gap 14.56 BUN 19.5 Creatinine 0.79 Estimated GFR (MDRD) 104.00 BUN/Creatinine Ratio 24.68 Glucose 79.5 Calcium 8.28 L Total Bilirubin 0.40 AST 36.2 ALT 23.6 Alkaline Phosphatase 107.0 Total Creatine Kinase 52.2 L Troponin I < 0.012 Total Protein 8.64 H Albumin 3.88 Globulin 4.76 Albumin/Globulin Ratio 0.81 Amylase 82.2 Lipase 180.0 Urine Color Urine Clarity Urine pH Ur Specific [place] Urine Protein Urine Glucose (UA) Urine Ketones Urine Blood Urine Nitrite Urine Bilirubin Urine Urobilinogen Ur Leukocyte Esterase 08/05/18 20:10 WBC RBC Hgb Hct MCV MCH MCHC RDW Coeff of Shivam Plt Count Immature Gran % (Auto) Neut % (Auto) Lymph % (Auto) [place] % (Auto) Eos % (Auto) Baso % (Auto) Immature Gran # (Auto) Neut # (Auto) Lymph # (Auto) [place] # (Auto) Eos # (Auto) Baso # (Auto) Sodium Potassium Chloride Carbon Dioxide Anion Gap BUN Creatinine Estimated GFR (MDRD) BUN/Creatinine Ratio Glucose Calcium Total Bilirubin AST ALT Alkaline Phosphatase Total Creatine Kinase Troponin I Total Protein Albumin Globulin Albumin/Globulin Ratio Amylase Lipase Urine Color Yellow Urine Clarity Clear Urine pH 5.0 Ur Specific [place] 1.025 Urine Protein Negative Urine Glucose (UA) Negative Urine Ketones Negative Urine Blood Negative Urine Nitrite Negative Urine Bilirubin Negative Urine Urobilinogen 1.0 Ur Leukocyte Esterase Negative Orders Category Date Time Status EKG-(ED ONLY) Stat CARDIO 08/05/18 18:32 Completed ED IV/MEDIPORT/POWERPORT .ONCE EMERGENCY 08/05/18 18:32 Active AMYLASE Stat LAB 08/05/18 18:45 Completed CBC W/ AUTO DIFF Stat LAB 08/05/18 18:45 Completed COMPREHENSIVE METABOLIC PANEL Stat LAB 08/05/18 18:45 Completed CREATINE KINASE Stat LAB 08/05/18 18:45 Completed LIPASE Stat LAB 08/05/18 18:45 Completed TROPONIN I Stat LAB 08/05/18 18:45 Completed URINALYSIS C & S IF INDICATED Stat LAB 08/05/18 20:10 Completed 0.9 % Sodium Chloride [Saline Flush] MEDS 08/05/18 18:32 Ordered 1 syr IVF PRN PRN Meperidine HCl/Pf [Demerol 25 mg/ml Vial] MEDS 08/05/18 18:32 Discontinued 25 mg IVP ONCE STA Ondansetron HCl/Pf [Zofran 4 mg/2 ml] MEDS 08/05/18 18:32 Discontinued 4 mg IVP ONCE STA Sodium Chloride 0.9% [Sodium Chloride] 1,000 ml MEDS 08/05/18 18:[address] ABDOMEN/PELVIS WO CONTRAST Stat RADS 08/05/18 18:32 Completed Medications Generic Name Dose Route Start Last Admin Trade Name Crystal PRN Reason Stop Dose Admin Sodium Chloride 1 syr 08/05/18 18:32 08/05/18 19:04 Saline Flush IVF 1 syr PRN PRN Administration To flush IV Discontinued Medications Generic Name Dose Route Start Last Admin Trade Name Frelexx PRN Reason Stop Dose Admin Sodium Chloride 1,000 mls @ 1,000 mls/hr 08/05/18 18:32 Sodium Chloride IV 08/05/18 19:31 BOLUS STA Meperidine HCl 25 mg 08/05/18 18:32 Demerol 25 Mg/Ml Vial IVP 08/05/18 18:33 ONCE STA Ondansetron HCl 4 mg 08/05/18 18:32 08/05/18 19:02 Zofran 4 Mg/2 Ml IVP 08/05/18 18:33 4 mg ONCE STA Administration Vital Signs: Temp Pulse Resp BP Pulse Ox 08/05/18 17:49 97.5 F L 91 H 20 150/70 H 97 Departure - Departure Time of Disposition: 20:30 Disposition: HOME SELF-CARE Discharge Problem: Enteritis Instructions: Enteritis (ED) Condition: Good Pt referred to PMD for follow-up: No IPMP verified?: No Additional Instructions: librax q 6hrs prn cramping #10---clear liquids and advance---avoid dairy products for 3 days Allergies/Adverse Reactions: Allergies terbinafine [From Lamisil] Adverse Reaction (Verified 08/05/18 18:00) Vomiting Home Medications: Ambulatory Orders Prednisone 20 mg PO DAILYWM #5 tablet 07/21/18 Methotrexate Sodium [Methotrexate] 4 tab PO WEEKLY 08/05/18 Disposition Discussed With: Patient
== END 2018-08-05 20:40 | disposition home or self-care (01) ==
LOC: ED 17:49
DX: K52.9 Noninfective gastroenteritis and colitis, unspecified (principal)
CPT/HCPCS: 36415; 80053; 81001; 82150; 82550; 83690; 84484; 85025; 93005; 93010; 96361; 96374; 99283

== ENCOUNTER 2018-12-14 20:45 | Emergency (ER) ==
[2018-12-14 20:53] VITALS: BP 119/74; TEMP 100.1; BMI 32.2
--- NOTE | 2018-12-14 21:24 | DI ---
EXAM: Two-view chest HISTORY: Hypertension TECHNIQUE: Frontal and lateral views of the chest were obtained. Comparison 10/11/2017. FINDINGS: The heart is normal size. Lungs are clear. The pulmonary vasculature appears normal. Th e costophrenic angles are sharp. The osseous structures and mediastinal contours are normal. IMPRESSION: No active cardiopulmonary disease.
[2018-12-14] MEDS ORDERED: AUGMENTIN 875-125 MG TAB PO STA (22:18)
--- NOTE | 2018-12-14 22:22 | ED.PDOC ---
General ED Provider: Dr. LAYNE MENEZES-ER Chief Complaint: Respiratory Complaint Stated Complaint: my sinues are running yellow and i have fever Time Seen by Physician: 20:50 Mode of Arrival: Wheelchair Information Source: Patient Exam Limitations: No limitations Primary Care Provider: JENSEN CAGE Nursing and Triage Documentation Reviewed and Agree: Yes Does patient meet sepsis criteria?: No System Inflammatory Response Syndrome: Not Applicable Sepsis Protocol: For patient's 13 years and over: Temp is 96.8 and below OR 101 and greater Pulse >90 BPM Resp >20/minute Acutely Altered Mental Status Are patient's symptoms suggestive of a new infection, such as: -Pneumonia -Skin, Soft Tissue -Endocarditis -UTI -Bone, Joint Infection -Implantable Device -Acute Abdominal Infection -Wound Infection -Meningitis -Blood Stream Catheter Infection -Unknown Respiratory Complaint Exam - Respiratory Complaint/Exam Onset/Duration: today Symptoms Are: Still present Timing: Constant Initial Severity: Mild Current Severity: Moderate Location: Nose, Chest Character: Reports: Productive cough Aggravating: Reports: URI Alleviating: Reports: None Associated Signs and Symptoms: Reports: Fever, URI, Nasal congestion, Sinus discomfort Home Oxygen Use: No Recent Stress Test: No Recent Echo/LV Function: No Current Antibiotic Use: No Current Asthma Medication Use: No Respiratory Distress: None Inadequate Respiratory Effort: No Dysphagia Present: No Stridor Present: No JVD Present: No Accessory Muscle Use: No Retractions: Not Present Diminished Breath Sounds: No Sinus Tenderness: Maxillary, Ethmoid Grunting Respirations: No Kussmaul Respirations: No Differential Diagnoses: Pneumonia, Sinusitis Review of Systems - Review Of Systems Constitutional: Reports: Chills, Fever Eyes: Reports: No symptoms Ears, Nose, Mouth, Throat: Reports: Nose discharge Respiratory: Reports: Cough Cardiac: Reports: No symptoms GI: Reports: No symptoms, Other : Reports: No symptoms Musculoskeletal: Reports: No symptoms Skin: Reports: No symptoms Neurological: Reports: No symptoms Endocrine: Reports: No symptoms Hematologic/Lymphatic: Reports: No symptoms All Other Systems: Reviewed and Negative Past Medical History - Past Medical History Previously Healthy: Yes Endocrine: Reports: None Cardiovascular: Reports: None Respiratory: Reports: None Hematological: Reports: None Gastrointestinal: Reports: None Genitourinary: Reports: None Neuro/Psych: Reports: None Musculoskeletal: Reports: Arthritis (rheumatoid arthritis) Cancer: Reports: None - Surgical History General Surgical History: Reports: Orthopedic (right TKA). Denies: Appendectomy , Cholecystectomy - Family History Family History: Reports: Unknown - Social History Smoking Status: Former smoker Hx Substance Use: No Alcohol Screening: None - Immunizations Influenza Vaccine within 12 Months: No Pneumococcal Vaccine up to Date: No Physical Exam - Physical Exam Appearance: Well-appearing, No pain distress, Well-nourished Eyes: PAWEL, EOMI, Conjunctiva clear ENT: Rhinorrhea Neck: Supple Respiratory: Airway patent, Breath sounds clear, Breath sounds equal, Respirations nonlabored Cardiovascular: RRR, Pulses normal, No rub, No murmur GI/: Soft, Nontender, No masses, Bowel sounds normal, No Organomegaly Musculoskeletal: Normal strength, ROM intact, No edema, No calf tenderness Skin: Warm Neurological: Sensation intact, Motor intact, Reflexes intact, Cranial nerves intact, Alert, Oriented Psychiatric: Affect appropriate, Mood appropriate Interpretation - Radiology Interpretation Radiology Interpretation By: Radiologist Radiology Results: Negative Exam Interpreted: CXR Critical Care Note - Critical Care Note Total Time (mins): 0 Course - Course Hematology/Chemistry: 12/14/18 21:20 12/14/18 21:20 Orders, Labs, Meds: Lab Review 12/14/18 12/14/18 21:20 21:20 WBC 7.24 RBC 3.70 L Hgb 10.5 L Hct 32.5 L MCV 87.8 MCH 28.4 MCHC 32.3 RDW Coeff of Shivam 15.7 H Plt Count 417 Immature Gran % (Auto) 0.3 Neut % (Auto) 61.1 Lymph % (Auto) 31.1 [place] % (Auto) 4.1 Eos % (Auto) 2.8 Baso % (Auto) 0.6 Immature Gran # (Auto) 0.0 Neut # (Auto) 4.4 Lymph # (Auto) 2.3 [place] # (Auto) 0.3 L Eos # (Auto) 0.2 Baso # (Auto) 0.0 Sodium 139.9 Potassium 3.84 Chloride 105.8 Carbon Dioxide 26.2 Anion Gap 11.74 BUN 10.8 Creatinine 0.74 Estimated GFR (MDRD) 112.00 BUN/Creatinine Ratio 14.59 Glucose 81.6 Calcium 9.06 Total Bilirubin 0.61 AST 53.3 ALT 30.5 Alkaline Phosphatase 105.5 Total Protein 8.40 H Albumin 3.77 Globulin 4.63 Albumin/Globulin Ratio 0.81 Orders Category Date Time Status BLOOD CULTURE (ED ONLY) Stat LAB 12/14/18 21:15 Received CBC W/ AUTO DIFF Stat LAB 12/14/18 21:20 Completed COMPREHENSIVE METABOLIC PANEL Stat LAB 12/14/18 21:20 Completed MOLECULAR GROUP A STREP Stat LAB 12/14/18 21:07 Completed Amoxicillin/Potassium Clav [Augmentin 875-125 mg Tab] MEDS 12/14/18 22:18 Discontinued 1 tab PO ONCE STA CXR [CHEST, 2 VIEWS PA & LAT] Stat RADS 12/14/18 20:58 Completed Medications Discontinued Medications Generic Name Dose Route Start Last Admin Trade Name Freq PRN Reason Stop Dose Admin Amoxicillin/Clavulanate Potassium 1 tab 12/14/18 22:18 Augmentin 875-125 Mg Tab PO 12/14/18 22:19 ONCE STA Vital Signs: Temp Pulse Resp BP Pulse Ox 12/14/18 20:47 100.1 F H 84 20 119/74 97 Departure - Departure Time of Disposition: 22:21 Disposition: HOME SELF-CARE Discharge Problem: Sinusitis Qualifiers: Sinusitis location: unspecified location Chronicity: acute Recurrence: not specified as recurrent Qualified Code(s): J01.90 - Acute sinusitis, unspecified Instructions: Rhinosinusitis (ED) Condition: Good Pt referred to PMD for follow-up: Yes IPMP verified?: No Additional Instructions: f/u with dr cage about anemia Prescriptions: Amoxicillin/Potassium Clav [Augmentin 875-125 mg Tab] 1 tab PO Q12HR #20 tablet Allergies/Adverse Reactions: Allergies terbinafine [From Lamisil] Adverse Reaction (Verified 12/14/18 20:53) Vomiting Home Medications: Ambulatory Orders Multivitamin [Daily Multiple Vitamin] 1 each PO DAILY 10/03/18 Loratadine [Claritin] 10 mg PO DAILY 11/08/18 Amoxicillin/Potassium Clav [Augmentin 875-125 mg Tab] 1 tab PO Q12HR #20 tablet 12/14/18 Disposition Discussed With: Patient, Family
== END 2018-12-14 22:30 | disposition home or self-care (01) ==
LOC: ED 20:45
DX: J01.90 Acute sinusitis, unspecified (principal); D64.9 Anemia, unspecified
CPT/HCPCS: 36415; 80053; 85025; 87040; 87651; 99283

== ENCOUNTER 2018-12-19 10:48 | Outpatient (CLI) | END 2018-12-19 10:49 | disposition home or self-care (01) | LOC: RHC-LAB 10:48 → FCC-LAB 10:49 | PROVIDERS: ATTEND Family Medicine | DX: D64.9 Anemia, unspecified (principal); Z86.2 Personal history of diseases of the blood and blood-forming organs and certain disorders involving the immune mechanism | CPT/HCPCS: 36415; 82728; 84443; 85025; 85045 ==

== ENCOUNTER 2018-12-28 20:19 | Emergency (ER) ==
[2018-12-28 20:24] VITALS: BP 106/72; TEMP 100.2; BMI 31.8
[2018-12-28] MEDS ORDERED: TORADOL IM STA (20:34)
[2018-12-28] MEDS ORDERED: SOLU-CORTEF 250 MG IM STA (20:35)
--- NOTE | 2018-12-28 20:39 | ED.PDOC ---
General ED Provider: Dr. NIKOLAI RUSSELL Chief Complaint: Dizziness Stated Complaint: Patient complaints of mild dizziness, headaches and Joint pain on the left shoulder, left knee and left ankle. Time Seen by Physician: 20:37 Mode of Arrival: Wheelchair Information Source: Patient Primary Care Provider: RUKHSANA SIMMS Seen Within Last 72 Hours for Same Complaint By: ED (yesterday ) Nursing and Triage Documentation Reviewed and Agree: Yes Does patient meet sepsis criteria?: No System Inflammatory Response Syndrome: Not Applicable Sepsis Protocol: For patient's 13 years and over: Temp is 96.8 and below OR 101 and greater Pulse >90 BPM Resp >20/minute Acutely Altered Mental Status Are patient's symptoms suggestive of a new infection, such as: -Pneumonia -Skin, Soft Tissue -Endocarditis -UTI -Bone, Joint Infection -Implantable Device -Acute Abdominal Infection -Wound Infection -Meningitis -Blood Stream Catheter Infection -Unknown Musculoskeletal Complaint Exam - Lower Extremity Complaint/Exam Location of Pain: Reports: Left, Knee Mechanism of Injury: Reports: No known trauma Onset/Duration: 3 days Symptoms Are: Still present Initial Severity: Moderate Current Severity: Moderate Location: Reports: Diffuse Character: Reports: Aching, Throbbing Alleviating: Reports: None Aggravating: Reports: Movement Able to Bear Weight: Yes Associated Signs and Symptoms: Reports: Swelling Related History: Reports: Similar episode (with RA ) DVT Risk Factors: Reports: None Septic Arthritis Risk Factors: Reports: None Lower Extremity Findings: Present: Swelling Compartment Syndrome Risk Factors: Absent: Pain, Paralysis, Pallor, Pulselessness, Paresthesias Winter's Sign Present: No Differential Diagnoses: Arthritis, Strain, Sprain - Back Pain Complaint/Exam Mechanism of Injury: Reports: No known trauma Review of Systems - Review Of Systems Constitutional: Reports: No symptoms Eyes: Reports: No symptoms Ears, Nose, Mouth, Throat: Reports: No symptoms Respiratory: Reports: Cough Cardiac: Reports: No symptoms GI: Reports: No symptoms : Reports: No symptoms Musculoskeletal: Reports: Joint pain Skin: Reports: No symptoms Neurological: Reports: Anxiety, Headache Endocrine: Reports: No symptoms Hematologic/Lymphatic: Reports: No symptoms All Other Systems: Reviewed and Negative Past Medical History - Past Medical History Previously Healthy: Yes Endocrine: Reports: None Cardiovascular: Reports: None Respiratory: Reports: None Hematological: Reports: None Gastrointestinal: Reports: None Genitourinary: Reports: None Neuro/Psych: Reports: None Musculoskeletal: Reports: Arthritis (rheumatoid arthritis), Joint Pain Cancer: Reports: None - Surgical History General Surgical History: Reports: Orthopedic (right TKA). Denies: Appendectomy , Cholecystectomy - Family History Family History: Reports: Unknown - Social History Smoking Status: Former smoker Hx Substance Use: No Alcohol Screening: None - Immunizations Tetanus Shot up to Date: Yes Influenza Vaccine within 12 Months: No Pneumococcal Vaccine up to Date: No Physical Exam - Physical Exam Appearance: Ill-appearing, Obese Ill-appearing: Moderate Pain Distress: Moderate Neck: Supple Respiratory: Airway patent Cardiovascular: Tachycardia GI/: Soft Musculoskeletal: Edema (Joint edema ) Skin: Warm, Dry Neurological: Sensation intact, Alert, Oriented Psychiatric: Anxious Interpretation - Radiology Interpretation Radiology Interpretation By: Radiologist Radiology Results: Negative Exam Interpreted: CT Scan (head) Radiology Interpretation By: Radiologist Radiology Results: Positive (Left lower retrocaridac infiltrate.) Exam Interpreted: CXR - EKG Interpretation Time of EKG #1: 20:57 Rate: Normal Rhythm: Sinus Ectopy: None [place]: NL ST Segment: Normal Interpretation: Normal EKG Re-Evaluation - Re-Evaluation Time of Re-Evaluation: 21:46 Status: Improved (Dizziness gone ) Critical Care Note - Critical Care Note Total Time (mins): 30 Course - Course Hematology/Chemistry: 12/28/18 21:01 12/28/18 21:01 Orders, Labs, Meds: Lab Review 12/28/18 12/28/18 12/28/18 21:01 21:01 21:01 WBC 9.72 RBC 3.52 L Hgb 9.9 L Hct 31.1 L MCV 88.4 MCH 28.1 MCHC 31.8 RDW Coeff of Shivam 15.9 H Plt Count 374 Immature Gran % (Auto) 0.4 Neut % (Auto) 71.1 Lymph % (Auto) 20.5 [place] % (Auto) 6.1 Eos % (Auto) 1.3 Baso % (Auto) 0.6 Immature Gran # (Auto) 0.0 Neut # (Auto) 6.9 Lymph # (Auto) 2.0 [place] # (Auto) 0.6 Eos # (Auto) 0.1 Baso # (Auto) 0.1 Sodium 139.6 Potassium 3.76 Chloride 104.3 Carbon Dioxide 23.8 Anion Gap 15.26 BUN 11.3 Creatinine 0.89 Estimated GFR (MDRD) 91.00 BUN/Creatinine Ratio 12.69 Glucose 102.4 Lactic Acid Calcium 8.91 Total Bilirubin 0.65 AST 49.4 ALT 26.8 Alkaline Phosphatase 96.5 Total Protein 8.04 Albumin 3.57 Globulin 4.47 Albumin/Globulin Ratio 0.79 Procalcitonin 0.13 12/28/18 21:01 WBC RBC Hgb Hct MCV MCH MCHC RDW Coeff of Shivam Plt Count Immature Gran % (Auto) Neut % (Auto) Lymph % (Auto) [place] % (Auto) Eos % (Auto) Baso % (Auto) Immature Gran # (Auto) Neut # (Auto) Lymph # (Auto) [place] # (Auto) Eos # (Auto) Baso # (Auto) Sodium Potassium Chloride Carbon Dioxide Anion Gap BUN Creatinine Estimated GFR (MDRD) BUN/Creatinine Ratio Glucose Lactic Acid 1.63 Calcium Total Bilirubin AST ALT Alkaline Phosphatase Total Protein Albumin Globulin Albumin/Globulin Ratio Procalcitonin Orders Category Date Time Status EKG-(ED ONLY) Stat CARDIO 12/28/18 20:44 Completed ED APPLY O2 .ONCE EMERGENCY 12/28/18 20:42 Active ED PIPE SUPERVISOR APPLIED .ONCE EMERGENCY 12/28/18 20:42 Active ED IV/MEDIPORT/POWERPORT .ONCE EMERGENCY 12/28/18 21:22 Active ED VITAL SIGNS Q1HR EMERGENCY 12/28/18 20:42 Active Orthostatic [ED ORTHOSTATIC VITAL SIGNS] .ONCE EMERGENCY 12/28/18 20:36 Active BLOOD CULTURE (ED ONLY) Stat LAB 12/28/18 Received CBC W/ AUTO DIFF Stat LAB 12/28/18 21:01 Completed COMPREHENSIVE METABOLIC PANEL Stat LAB 12/28/18 21:01 Completed LACTIC ACID Stat LAB 12/28/18 21:01 Completed PROCALCITONIN Stat LAB 12/28/18 21:01 Completed 0.9 % Sodium Chloride [Saline Flush] MEDS 12/28/18 21:22 Discontinued 1 syr IVF PRN PRN Ceftriaxone Sodium [Rocephin] MEDS 12/28/18 21:43 Discontinued 1 gm .ROUTE .STK-MED ONE Ceftriaxone Sodium [Rocephin] 1 gm MEDS 12/28/18 21:40 Discontinued 0.9 % Sodium Chloride [Sodium Chloride] 50 ml IV ONCE Ketorolac Tromethamine [Toradol] MEDS 12/28/18 20:44 Discontinued 30 mg IVP ONCE STA Methylprednisolone Sod Succ/Pf [Solu-Medrol 125 mg] MEDS 12/28/18 20:44 Discontinued 125 mg IVP ONCE STA Ringers Lactated Solution [Lactated Ringers] 1,000 ml MEDS 12/28/18 20:42 Discontinued IV BOLUS CHEST, 2 VIEWS PA & LAT Stat RADS 12/28/18 20:[address] HEAD W/O CONTRAST Stat RADS 12/28/18 20:43 Completed Medications Discontinued Medications Generic Name Dose Route Start Last Admin Trade Name Freq PRN Reason Stop Dose Admin Lactated Ringer's 1,000 mls @ 1,000 mls/hr 12/28/18 20:42 12/28/18 21:24 Lactated Ringers IV 12/28/18 21:41 1,000 mls/hr BOLUS STA Administration Ceftriaxone Sodium 1 gm/ 50 mls @ 75 mls/hr 12/28/18 21:40 12/28/18 21:45 Sodium Chloride IV 12/28/18 22:19 75 mls/hr ONCE STA Administration Ketorolac Tromethamine 30 mg 12/28/18 20:44 12/28/18 21:27 Toradol IVP 12/28/18 20:45 30 mg ONCE STA Administration Methylprednisolone Sodium Succinate 125 mg 12/28/18 20:44 12/28/18 21:25 Solu-Medrol 125 Mg IVP 12/28/18 20:45 125 mg ONCE STA Administration Sodium Chloride 1 syr 12/28/18 21:22 12/28/18 21:23 Saline Flush IVF 1 syr PRN PRN Administration To flush IV Vital Signs: Temp Pulse Resp BP Pulse Ox 12/28/18 20:20 100.2 F H 112 H 20 106/72 99 Departure - Departure Time of Disposition: 23:00 Disposition: HOME SELF-CARE Discharge Problem: Swelling of joint, Dizziness, Vertigo Pneumonia Qualifiers: Pneumonia type: due to unspecified organism Laterality: left Lung location: lower lobe of lung Qualified Code(s): J18.1 - Lobar pneumonia, unspecified organism Instructions: Vertigo (ED), Swollen Joint (ED), Community Acquired Pneumonia ( ED) Condition: Stable Pt referred to PMD for follow-up: Yes IPMP verified?: No Additional Instructions: continue home medications as prescribed Take antibiotics until gone Follow up with PCP in 3 days Prescriptions: Amoxicillin/Potassium Clav [Augmentin 500-125 mg Tab] 1 tab PO Q8HR #30 tablet Prednisone 20 mg PO DAILYWM #5 tablet Allergies/Adverse Reactions: Allergies terbinafine [From Lamisil] Adverse Reaction (Verified 12/28/18 20:27) Vomiting Home Medications: Ambulatory Orders Multivitamin [Daily Multiple Vitamin] 1 each PO DAILY 10/03/18 Loratadine [Claritin] 10 mg PO DAILY 11/08/18 Amoxicillin/Potassium Clav [Augmentin 500-125 mg Tab] 1 tab PO Q8HR #30 tablet 12/28/18 Prednisone 20 mg PO DAILYWM #5 tablet 12/28/18 Disposition Discussed With: Patient
[2018-12-28] MEDS ORDERED: LACTATED RINGERS 1,000 ML IV STA (20:42)
[2018-12-28] MEDS ORDERED: SOLU-MEDROL 125 MG IVP STA (20:44)
[2018-12-28] MEDS ORDERED: TORADOL IVP STA (20:44)
--- NOTE | 2018-12-28 21:28 | DI ---
EXAM: Two views of the chest. History: Short of breath Comparison: Chest radiograph 12/27/2018 Findings: Heart size is within normal limits. Mild left lower lobe retrocardiac infiltrate. No ple ural fluid and no pneumothorax. No acute osseous abnormalities. Impression: Mild left lower lobe retrocardiac infiltrate
[2018-12-28] MEDS ORDERED: ANTIVERT PO STA (21:34)
[2018-12-28] MEDS ORDERED: ROCEPHIN 1 GM in SODIUM CHLORIDE 50 ML IV STA (21:40)
--- NOTE | 2018-12-28 21:40 | CT ---
EXAM: CT head without contrast HISTORY: Dizziness COMPARISON: None. TECHNIQUE: Helical axial CT of the head was performed without contrast. Coronal and sagittal reconst ructions were performed. FINDINGS: There is no acute intracranial abnormality. There is no hemorrhage, mass, midline shift, abnormal ex tra-axial fluid collection, hydrocephalus or evolving ischemia. The rowe-white matter junction is wel l maintained. There is no evidence of intravascular clot. Brain parenchyma, ventricles and sulci are normal. There are no acute calvarial lesions. Visualized orbits and globes are unremarkable. The mastoid ai r cells demonstrate no significant soft tissue opacification. The visualized paranasal sinuses show n o air-fluid levels. IMPRESSION: 1. No acute intracranial abnormality is identified. If clinical symptoms persist however would meng mmend correlation with MRI.
[2018-12-28] MEDS ORDERED: ROCEPHIN ONE (21:43)
== END 2018-12-28 23:09 | disposition home or self-care (01) ==
LOC: ED 20:19
DX: J18.1 Lobar pneumonia, unspecified organism (principal); R42 Dizziness and giddiness; M25.462 Effusion, left knee; M25.512 Pain in left shoulder; M25.572 Pain in left ankle and joints of left foot; M25.562 Pain in left knee; M06.9 Rheumatoid arthritis, unspecified; R00.0 Tachycardia, unspecified; R51 Headache
CPT/HCPCS: 36415; 80053; 83605; 84145; 85025; 87040; 93005; 93010; 96361; 96365; 96375; 99283

== ENCOUNTER 2020-05-09 13:25 | Inpatient (IN) ==
[2020-05-09] MEDS ORDERED: NON-FORMULARY MEDICATION (Acetaminophen [Tylenol Arthritis Pain] 650 mg tablet extended re PO PRN (14:10)
[2020-05-09] MEDS ORDERED: PERCOCET 7.5-325 PO PRN (14:10)
[2020-05-09] MEDS ORDERED: ATARAX PO PRN (14:10)
[2020-05-09] MEDS ORDERED: TYLENOL PO PRN (14:17)
[2020-05-09] MEDS ORDERED: LOVENOX SUBCUT SCH (14:30)
[2020-05-09] MEDS ORDERED: RHEUMATREX PO SCH (14:30)
[2020-05-09 14:35] VITALS: BMI 42.7
[2020-05-09 14:46] LABS: BASOPHILS # (AUTO) 0.1 K/uL (0-0.2); BASOPHILS % (AUTO) 0.8 % (0.0-3.0); EOSINOPHILS # (AUTO) 0.2 K/ul (0.0-0.7); EOSINOPHILS % (AUTO) 2.8 % (0.0-7.0); HEMATOCRIT 33.7 % (42.0-52.0); HEMOGLOBIN 11.3 g/dl (14.0-18.0); IMMATURE GRANULOCYTE % (AUTO) 0.4 % (0.0-5.0); LYMPHOCYTES # (AUTO) 2.2 K/uL (0.60-3.4); MEAN CORPUSCULAR HEMOGLOBIN 30.5 pg (27.0-31.0); MEAN CORPUSCULAR HGB CONC 33.5 (31.8-35.4); MEAN CORPUSCULAR VOLUME 91.1 fl (80.0-94.0); MONOCYTES # (AUTO) 0.8 K/uL (0.4-2.0); MONOCYTES % (AUTO) 10.3 (0-10); NEUTROPHILS # (AUTO) 4.7 K/ul (2.0-6.9); NEUTROPHILS % (AUTO) 58.7 % (42.2-75.2); PLATELET COUNT 449 10^3/uL (140-440); RDW COEFFICIENT OF VARIATION 14.8 % (11.6-14.8); WHITE BLOOD COUNT 7.99 K/ul (4.2-10.2)
[2020-05-09] MEDS: DECADRON IM SCH (14:55)
[2020-05-09] MEDS: PRILOSEC PO SCH (15:00)
[2020-05-09 15:02] LABS: MOLECULAR FLU A NEGATIVE BY NAAT (NEGATIVE); MOLECULAR FLU B NEGATIVE BY NAAT (NEGATIVE)
[2020-05-09 15:07] LABS: ALANINE AMINOTRANSFERASE 19.8 U/L (0-50); ALBUMIN 3.58 g/dL (3.5-5.0); ALKALINE PHOSPHATASE 89.9 U/L (38-126); ASPARTATE AMINO TRANSFERASE 30.4 U/L (17-59); BILIRUBIN,TOTAL 1.22 mg/dL (0.2-1.3); BLOOD UREA NITROGEN 10.3 mg/dL (9-20); CALCIUM 9.09 mg/dL (8.4-10.2); CARBON DIOXIDE 25.3 mmol/L (22-30.0); CHLORIDE 104.4 mmol/L (98-107); CREATININE 0.89 mg/dL (0.60-1.10); GLUCOSE 85.6 mg/dL (74-106); POTASSIUM 3.94 mmol/L (3.5-5.1); SODIUM 137.7 mmol/L (134.5-145); TOTAL PROTEIN 7.66 g/dL (6.3-8.2)
--- NOTE | 2020-05-09 15:21 | PCM ---
Chief Complaint Chief Complaint: COVID 19 Positive. Shortness of breath. History of Present Illness History of Present Illness: 50 year old CM presented to outpatient registration of the hospital for CT PE protocol after visit yesterday with BART Navarro for worsening FARRIS, cough. Note from 05/08/20 reviewed with the patient. Weight 315, down from 319 last OV. BP 135/76, RR 28, pulse 97 97% on RA, temp 99.2. Noted freq cough no fever x 4 days. Robitussin not helping at all. Appetite down, insomnia, extremely SOA w/ exertion, using cane to walk in left hand. Swelling in ankles improving. History of PE with admission to 03/2020, DVT LLE. He told BART Benedict his SOA was similar to when he had his PE recently. Compliant with anticoag meds. BART Navarro ordered CXR, ddimer, COVID testing, if worsening recommended to go to ED. She came to me late yesterday pm with elevated Ddimer. I noted ddimer is incredibly low yield test if patient has known DVT. BNP was okay. CXR no active/acute process. PFSH significant for osteoarthritis, rheumatoid arthritis polyarthralgia on methotrexate every , known DVT LLE 04/12/20 US doppler confirmed on Xarelto 15mg BID, due to change soon to 20mg, history of PE, history of dvt left axillary vein, history of pneumonia. Never smoker, chronic poor dentition. Patient presented to outpatient registration today for CT PE protocol and subsequently was found to be COVID +. I was notified of this status, went to patient registration and had patient weight in his car for direct admission. BART Navarro told me he was very SOA, sick appearing and was worried about him. We directly admitted him to hospital into SCU 1. 4 day history of symptoms URI cough without sputum production, nasal pressure, some loss of taste/smell but he notes the symptoms were not bad. He reports significant SOA, FARRIS, difficulty laying supine. He has been monitoring BP at home and he notes it has been doing well, at goal. No reported sick contacts, no recent travel. "I stay in the town, I stay in the vehicle and my goes in and does all of the things that we need." As far as he knows she is healthy, asymptomatic and not having any issues. Chronic rheumatoid arthritis rated at 4-5/10. He notes overall pain is better with resting. Breathing is better with sitting/resting. Chills, body aches, no appetite. He has not had anything to eat/drink since last night. LAGUERRE generalized 4-5/10 worse with cough, worse with lying supine. He is on percocet 7.5 TID. We will continue to use these for pain relief. Aware of R/B/a to opiates and he reports no abuse of these. Chronic peripheral edema, 2+ edema of feet, 1+ to knees bilaterally. He notes cough has worsened over last 4 days. He is not coughing up sputum, he notes SOA worse with cough paroxysms. He has been tested for COVID already and this returned positive via PCR. I walked into room SCU 1 1330 today full airborn PPE and discussed case with patient. I swabbed him for influenza via nasal swab. Cough is dry, attempted to collect sputum, unable as not producing sputum. Last BM this am, normal, no blood, no vomiting/constipation. He has thickening skin along bilateral feet, no e/o communicable process. He has marito ebruising to bilateral buttock. No groin rash, no sacral decub, no other rash. He feels weight is stable. He is able to talk in 3-5 word segments. Temp 1320 was 99.4, RR 19-22, pulse 88, BP 121/82. NO reported tylenol today. No percocet today. He has not been on prednisone since early 04/2020. The patient has had his flu shot, he has had his pneumonia vaccine. I had patient stand up and walk a few steps in place and he did drop to 88%. We discussed O2 NC to keep 92-98%. In addition to COVID-19 we are concerned that he has a PE. The patient has chest pain w/ deep inspiration. subjective fever, no vision c hanges, mild reported loss of taste/smell, 4 day URI symptoms, cough/congestion/wheezing/SOA, + CP, reported fatigue, no abd pain, +Nausea, no emesis/diarrhea, intermittent constipation, no changes in urination/stooling, chronic MSK pain as above, no recent injuries/Falls and listed above. REVIEW OF SYMPTOMS: (Positives bolded) General: weight loss, Subjective fever, chills, night sweats, fatigue, appetite loss HEENT: blurry vision, eye pain, eye discharge, dry eyes, decreased vision, sore throat tinnitus, bloody nose, hearing loss, sinus pain/pressure, ear pain/pressure. Respiratory: shortness of breath, cough, hemoptysis, wheezing, pleurisy, Cardiovascular: chest pain, PND, palpitation, edema, orthopnea, syncope, swe lling of extremities Gastro: Nausea, vomiting, diarrhea, hematemesis, abdominal pain, constipation Genito: hematuria, dysuria, glycosuria, hesitancy, frequency, incontinence Musckelo: Arthralgia, myalgia, muscle weakness, joint swelling, NSAID use Skin: rash, pruritis, sores, nail changes, skin thickening feet, change in wart/mole, itching, rash, new lesions, pruritus, nail changes Neuro: Migraine, numbness, ataxia, tremor, vertigo, weakness, memory loss, Ir ritability, dizziness Endocrine: excessive thirst, polyuria, cold intolerance, heat intolerance, goiter Psychiatric: depression, anxiety, anti-depressants, alcohol abuse, drug abuse, insomnia, change in sleep pattern and mood changes Heme/lymph: easy bruising on anticoag, bleeding gums, blood clots, swollen glands, lymphedema, Allergic/immune: allergic rhinitis, hay fever, asthma, hives Exam: Vital Signs Temp Pulse Resp BP Pulse Ox 05/09/20 15:21 99.4 F 88 19 121/82 99 05/09/20 15:16 99 05/09/20 14:00 99.4 F 19 121/82 99 05/09/20 13:30 99.4 F 19 99 Constitutional: Appearance-Mild tachypnea/mild respiratory distress, Consistent with stated age. Orientation- Oriented x 3, alert Gait- Wide based gait, using cane in left hand. Build and Nutrition-OBESE male BMI 42.7. General- Patient is pleasant and cooperative with the interview and exam. Talks in fragmented 3-5 word segments. Integumentary: General- Skin thickening and hyperpigmented changes between toes and lateral feet bilaterally. He has 2+ Pitting edema bilateral LE to the ankle, then 1+ to the knee. He has no e/o skin breakdown. Bruising on the buttock bilaterally, superficial varicosities as well. Bilateral legs decreased hair to the knees. Pulses 1+ symmetrical. He has no open ulcers. No groin/sacral rashes, no rash to abdomen/chest. No rash/ulcers or lesions except as noted. Palpation- Normal skin moisture/turgor. Skin is warm to touch, appropriate. Capillary refill is normal bilateral Upper and lower extremity. Head/Neck: Head- normocephalic and atraumatic. Neck- without visible/palpable lumps or pulsations. Palpation- No bony tenderness about head/neck along frontal, occipital, temporal, parietal, mastoid, jawline, zygoma, orbit or any other location. NO temporal artery tenderness. No TMJ tenderness. Neck Supple. Thyroid-No thyromegaly, no nodules Eye: Bilaterally PERRLA, EOMI. No discharge. Upper and lower eyelids are normal. Sclera/conjunctiva normal without discharge. Cornea is normal and clear. Lens is normal. Eyeball appears normal. No ciliary flushing, no conjunctival injection. ENMT: Pinna- normal without tenderness or erythema. External auditory canal Left- normal without erythema or discharge, no excessive cerumen. External auditory canal Right-normal without erythema or discharge, no excessive cerumen. TM left- Hadley/pearly, normal light reflex and anatomy TM Right- Hadley/pearly, normal light reflex and anatomy Hearing Assessment-normal to conversational speech. Nose and sinus- No sinus tenderness along frontal/maxillary region. External appearance normal and midline. Nares- bilateral quiet airflow, no discharge. Nasal mucosa- No bleeding noted and no ulcerations observed. [place], moist. Turbinates non boggy. Lips- normal color, moist without cracks/lesions Oral Cavity/Palate- hard/soft palate intact without lesions, oral mucosa pink and moist. Dentition assessed [missing teeth poor dentition] and discussed appropriate oral care. Tongue normal midline. Oropharynx- no pharyngeal erythema, Uvula midline. No post nasal drip. No exudate. Salivary glands- Non tender to palpation CHEST/LUNG: Inspection- symmetric chest wall no pectus deformity. Increased effort, mild distress, no use of accessory muscles. Palpation- nontender sternum, ribline. No abnormal pulsations. Auscultation- Breath sounds diminished/coarse throughout all lung marvin. Lungs w/ decreased aeration. Adventitious sounds- wheezes, crackling distally, + rales, + rhonchi. CARDIOVASCULAR: Carotid artery- normal, no bruits or abnormal pulsations. Jugular vein- no pulsations. Palpation/Percussion- Normal PMI, no palpable thrill Auscultation- Regular rate and rhythm. No murmur noted in sitting, supine positions. Extremities- no digital clubbing, cyanosis, edema, increased warmth. ABDOMEN: Inspection- normal and no visible pulsations. Normal contour. Auscultation- Bowel sounds normal, no abdominal bruits. Palpation/Percussion- soft, non-tender, no rebound tenderness, no rigidity (guarding), no jar tenderness, no masses. Liver-no hepatomegaly, Spleen no splenomegaly, Hernias- none. Rectal not examined. Peripheral Vascular: Upper extremity Left- Normal temperature with pink nailbeds and no ulcerations. Upper extremity Right- Normal temperature with pink nailbeds and no ulcerations. Lower extremity- Normal temperature with pink nailbeds and no ulcerations. Loss of hair bilateral LE shins. Venous stasis changes. DP pulses 2+ bilaterally. Normal capillary refill. Edema- edema 2+ to ankle 1+ to knee. Bilateral. Musculoskeletal: Generalized-swelling/edema of Lower extremities, no cyanosis, neurovascularly intact all four extremities. Upper extremity- Symmetrical posture. No visible deformity. Normal sensation along medial and lateral upper extremity proximally and distally. NO tenderness overlying shoulder, lateral/medial epicondyle. Chief Specialist Leed 5/5 and strength 5/5 bilateral UE. Elbow palpated, no tenderness overlying olecranon. Normal supination, pronation to active/passive ROM and to resisted rotation. Bicep insertion/tricep insertion appear normal without obvious pathology. Rotator cuff evaluated and intact. Normal wrist ROM bilaterally. Normal hand movement, intrinsic muscles of hands normal. No tenderness to palpation of hands/wrists/elbows. Lower extremity- Hip: Not tender to palpation, no pain, no swelling, edema or erythema of surrounding tissue, normal strength and tone. Weak hip flexor. Tight hamstring and quad. Reduced hip ROM bilaterally without pain. Knee: Knee ROM normal. No tenderness overlying trochanters, no tenderness about patella, quad tendon, patellar tendon. No tenderness at tibial tuberosity. Ankle: normal ROM not tender to palpation along medial/lateral malleolus. Foot: Normal movement of toes, no tenderness bilateral feet/toes. Normal foot type. Spine/Ribs- No deformities, masses or tenderness, no known fractures, normal strength, Normal ROM. Normal stability No tenderness along C/T/L spine. Normal appdearing ROM about spine. Neurological: General- Moves all 4 extremities symmetrically. Symmetrical face and body posture. Cranial nerves- individually evaluated II-XII and intact. PERRLA, Normal EOMI, visual/special senses appear intact, Face is symmetrical and normal sensation/movement, normal tongue, normal strength/posture of neck musculature. Reflexes- intact with DTR 2+ patellar, Achilles, bicep, brachial, t ricep. Ankle clonus normal with 2 beats. Strength- 5/5 bilateral UE and LE. Soft touch- intact bilateral UE and LE. Temperature sensation- intact bilateral UE and LE.. Ambulates with cane, wide based. Neuropsych: Oriented- Person, place, time. (AAOx3), Mood/affect- normal and congruent. Able to articulate well. Speech-Normal speech, normal rate, normal tone, normal use of language, volume and coherence. Thought content- normal with ability to perform basic computations and apply abstract thought/reason. Associations- intact, no SI/HI, no hallucinations, delusions, obsessions. Judgment/insight- Appropriate. Memory-Recall intact, remote and recent memory intact. Knowledge- Age appropriate fund of knowledge, concentration and attention span normal. Lymphatic: Head/Neck- normal size and non tender to palpation. Axillary- normal size and non tender to palpation. Femoral and Inguinal- normal size and non tender to palpation. Allergies Allergies Allergy/AdvReac Type Severity Reaction Status Date / Time terbinafine [From Lamisil] AdvReac Unknown Vomiting Verified 04/26/20 10:05 [facility] Medical History (Updated 05/09/20 @ 22:15 by RUKHSANA SIMMS MD) Arthritis COVID-19 ruled out by clinical criteria DVT of left axillary vein, acute History of seasonal allergies Pneumonia Surgical History History of musculoskeletal system surgery Family History FATHER Hypertension Diabetes Mother Hypertension Diabetes BROTHER Cancer Social History Smoking and tobacco status: Never smoker Passive smoking exposure: No Alcohol intake: never Substance use type: does not use Special mireya needs: No Agree to transfusion: Yes Adopted: No Caregiver/support person: No Foster care: No Household members: significant other Housing: house Marital status: M Daycare: no daycare Number of children: 3 Number of grandchildren: 11 Highest education level completed: 11th grade service: No intermediate: No Current occupational status: unemployed Current occupational exposures/hazards: No Pets and animals: Yes (2 dogs 2 birds) History of recent travel: No Sexually active: Yes Do you think of yourself as: straight/heterosexual Current gender identity: male Seatbelt use: always Drives intoxicated or rides with intoxicated electric screw driver operator: No Current diet type/program: regular Water heater temperature set < 120 degrees: Yes Working smoke detector in home: Yes Fire extinguisher in home: No Carbon monoxide detector in home: No Firearms in home: No Medications Medications: Medications Generic Name Dose Route Start Last Admin Trade Name Freq PRN Reason Stop Dose Admin Acetaminophen 650 mg 05/09/20 14:17 Acetaminophen 325 Mg Tablet PO Q8H PRN fever, headache pain Albuterol Sulfate 2 puff 05/09/20 14:13 Albuterol Sulfate (Ventolin Hfa) 18 Gm 1 Puff With Spacer IH Q4H PRN wheezing shortness of breath Dexamethasone Sodium Phosphate 6 mg 05/09/20 14:30 05/09/20 14:55 Dexamethasone Sod Phos 10 Mg/Ml Inj IM Not Given DAILY [facility] Enoxaparin Sodium 40 mg 05/09/20 14:30 05/09/20 14:59 Enoxaparin Sodium 40 Mg/0.4 Ml Syr SUBCUT 40 mg DAILY ANUPAM Administration Hydroxyzine HCl 25 mg 05/09/20 14:10 05/09/20 15:00 Hydroxyzine Hcl 25 Mg Tablet PO 25 mg BID PRN Administration itching Ipratropium Ke[place] 2 puff 05/09/20 18:00 Ipratropium [place] 12.9 Gm Hfa Inhaler Per Puff With Spacer IH RTQ6H ANUPAM Loratadine 10 mg 05/10/20 09:00 Loratadine 10 Mg Tablet PO DAILY [facility] Methotrexate 17.5 mg 05/09/20 14:30 Methotrexate Sodium 2.5 Mg Tablet PO QWEEK [facility] Omeprazole 20 mg 05/09/20 15:00 05/09/20 15:00 Omeprazole 20 Mg Capsule.Dr PO 20 mg QDAC ANUPAM Administration Oxycodone/Acetaminophen 1 tab 05/09/20 14:10 05/09/20 15:00 Oxycodone/Acetaminophen 7.5/325 Mg Tablet PO 1 tab TID PRN Administration joint pain Body Composition Height: 6 ft Weight: 315 lb Body Mass Index (BMI): 42.7 Vital Signs Temperature: 99.4 F Pulse Rate: 88 Respiratory Rate: 19 Blood Pressure: 121/82 O2 Sat by Pulse Oximetry: 99 Lab/Tests/Diagnostic Imaging Lab/Tests/Diagnostic Imaging: Lab Review 05/09/20 05/09/20 14:25 14:39 WBC 7.99 RBC 3.70 L Hgb 11.3 L Hct 33.7 L MCV 91.1 MCH 30.5 MCHC 33.5 RDW Coeff of Shivam 14.8 Plt Count 449 H Immature Gran % (Auto) 0.4 Neut % (Auto) 58.7 Lymph % (Auto) 27.0 [place] % (Auto) 10.3 H Eos % (Auto) 2.8 Baso % (Auto) 0.8 Neut # (Auto) 4.7 Lymph # (Auto) 2.2 [place] # (Auto) 0.8 Eos # (Auto) 0.2 Baso # (Auto) 0.1 Immature Gran # (Auto) 0.0 Influ A Molecular Assay Negative by naat Influ B Molecular Assay Negative by naat Orders Category Date Time Status ADMIT PATIENT INPATIENT .TO [facility] (MONITORED BED) ADMISSION 05/09/20 13:59 Active METERED DOSE INHALATION Routine CARDIO 05/09/20 14:13 Active OXYGEN Routine CARDIO 05/09/20 14:14 Ordered ACTIVITY .Early Mobilization for VTE Prevention CARE 05/09/20 14:00 Active INTAKE & OUTPUT Q8HR CARE 05/09/20 14:00 Ordered NPO REMINDER: IMAGING ONCE CARE 05/09/20 14:04 Active TELEMETRY MONITORING TELE CARE 05/09/20 13:59 Active VITAL SIGNS Q8HR CARE 05/09/20 14:00 Active REGULAR DIET DIETARY 05/09/20 Dinner Ordered CBC W/ AUTO DIFF DAILY@0600 LAB 05/10/20 06:00 Ordered CBC W/ AUTO DIFF DAILY@0600 LAB 05/11/20 06:00 Ordered CBC W/ AUTO DIFF Routine LAB 05/09/20 14:25 Completed COMPREHENSIVE METABOLIC PANEL DAILY@0600 LAB 05/10/20 06:00 Ordered COMPREHENSIVE METABOLIC PANEL DAILY@0600 LAB 05/11/20 06:00 Ordered COMPREHENSIVE METABOLIC PANEL Routine LAB 05/09/20 14:25 Received FLU A/B MOLECULAR Stat LAB 05/09/20 14:39 Completed SPUTUM CULTURE Stat LAB 05/09/20 14:00 Uncollected Acetaminophen [Tylenol] MEDS 05/09/20 14:17 Active 650 mg PO Q8H PRN Albuterol Inhaler(with Spacer) [Ventolin Hfa (Per Puff- MEDS 05/09/20 14:13 Active with Spacer)] 2 puff IH Q4H PRN Dexamethasone Sod Phosphate [Decadron 10 mg/ml Sdv] MEDS 05/09/20 14:30 Hold 6 mg IM DAILY Enoxaparin Sodium [Lovenox] MEDS 05/09/20 14:30 Active 40 mg SUBCUT DAILY Hydroxyzine HCl [Atarax] MEDS 05/09/20 14:10 Active 25 mg PO BID PRN Ipratropium Inhaler(Spacer) [Atrovent Hfa Inhaler (Per MEDS 05/09/20 18:00 Active Puff-with Spacer)] 2 puff IH RTQ6H Loratadine [Claritin] MEDS 05/10/20 09:00 Active 10 mg PO DAILY Methotrexate Sodium [Rheumatrex] MEDS 05/09/20 14:30 Active 17.5 mg PO QWEEK Omeprazole [Prilosec] MEDS 05/09/20 15:00 Active 20 mg PO QDAC Oxycodone-Acetaminophe 7.5-325 [Percocet 7.5-325] MEDS 05/09/20 14:10 Active 1 tab PO TID PRN RESUSCITATION STATUS Routine OTHERS 05/09/20 14:[address] CHEST PE PROTOCOL Stat RADS 05/09/20 14:04 Ordered Medications Generic Name Dose Route Start Last Admin Trade Name Freq PRN Reason Stop Dose Admin Acetaminophen 650 mg 05/09/20 14:17 Acetaminophen 325 Mg Tablet PO Q8H PRN fever, headache pain Albuterol Sulfate 2 puff 05/09/20 14:13 Albuterol Sulfate (Ventolin Hfa) 18 Gm 1 Puff With Spacer IH Q4H PRN wheezing shortness of breath Dexamethasone Sodium Phosphate 6 mg 05/09/20 14:30 05/09/20 14:55 Dexamethasone Sod Phos 10 Mg/Ml Inj IM Not Given DAILY [facility] Enoxaparin Sodium 40 mg 05/09/20 14:30 05/09/20 14:59 Enoxaparin Sodium 40 Mg/0.4 Ml Syr SUBCUT 40 mg DAILY ANUPAM Administration Hydroxyzine HCl 25 mg 05/09/20 14:10 05/09/20 15:00 Hydroxyzine Hcl 25 Mg Tablet PO 25 mg BID PRN Administration itching Ipratropium [place] 2 puff 05/09/20 18:00 Ipratropium [place] 12.9 Gm Hfa Inhaler Per Puff With Spacer IH RTQ6H [facility] Loratadine 10 mg 05/10/20 09:00 Loratadine 10 Mg Tablet PO DAILY [facility] Methotrexate 17.5 mg 05/09/20 14:30 Methotrexate Sodium 2.5 Mg Tablet PO QWEEK [facility] Omeprazole 20 mg 05/09/20 15:00 05/09/20 15:00 Omeprazole 20 Mg Capsule.Dr PO 20 mg QDAC ANUPAM Administration Oxycodone/Acetaminophen 1 tab 05/09/20 14:10 05/09/20 15:00 Oxycodone/Acetaminophen 7.5/325 Mg Tablet PO 1 tab TID PRN Administration joint pain Laboratory Results - last 24 hr 05/09/20 05/09/20 05/09/20 14:25 14:25 14:39 WBC 7.99 RBC 3.70 L Hgb 11.3 L Hct 33.7 L MCV 91.1 MCH 30.5 MCHC 33.5 RDW Coeff of Shivam 14.8 Plt Count 449 H Immature Gran % (Auto) 0.4 Neut % (Auto) 58.7 Lymph % (Auto) 27.0 [place] % (Auto) 10.3 H Eos % (Auto) 2.8 Baso % (Auto) 0.8 Neut # (Auto) 4.7 Lymph # (Auto) 2.2 [place] # (Auto) 0.8 Eos # (Auto) 0.2 Baso # (Auto) 0.1 Immature Gran # (Auto) 0.0 Puncture Site O2 Saturation ABG pH ABG pCO2 ABG pO2 ABG HCO3 ABG Total CO2 ABG Base Excess Christian Test FiO2 % Sodium 137.7 Potassium 3.94 Chloride 104.4 Carbon Dioxide 25.3 Anion Gap 11.94 BUN 10.3 Creatinine 0.89 Estimated GFR (MDRD) 90.00 BUN/Creatinine Ratio 11.57 Glucose 85.6 Calcium 9.09 Total Bilirubin 1.22 AST 30.4 ALT 19.8 Alkaline Phosphatase 89.9 Total Protein 7.66 Albumin 3.58 Globulin 4.08 Albumin/Globulin Ratio 0.87 Influ A Molecular Assay Negative by naat Influ B Molecular Assay Negative by naat Puncture Site Rrad O2 Saturation 95.0 ABG pH 7.45 ABG pCO2 37.0 ABG pO2 72.0 L ABG HCO3 25.7 ABG Total CO2 26.8 ABG Base Excess 1.7 Christian Test + FiO2 % 21.0 y Impression: 1. The pulmonary arteries are not well opacified due to bolus timing. There is no large central pulmonary embolism. Questionable bilateral lower lobe pulmonary emboli. Recommend VQ scan or repeat CTA of the chest. 2. Mild cardiomegaly. 3. Subtle bilateral ground-glass changes could be related to poor inspiratory effort or early edema. There is no consolidated pneumonia. 4. Splenomegaly. Critical results communicated to Dr. Simms at 7:26 p.m. 05/09/2020 Assessment (1) COVID-19: Status: Acute Code(s): U07.1 - COVID-19 SNOMED Code(s): 576013071 (2) Dyspnea on exertion: Status: Acute Code(s): R06.00 - Dyspnea, unspecified SNOMED Code(s): 53748910 (3) Left leg DVT: Status: Acute Code(s): I82.402 - Acute embolism and thrombosis of unspecified deep veins of left lower extremity SNOMED Code(s): 837933078 (4) Anemia: Status: Acute Code(s): D64.9 - Anemia, unspecified SNOMED Code(s): 040386574 (5) Rheumatoid arthritis: Status: Acute Code(s): M06.9 - Rheumatoid arthritis, unspecified SNOMED Code(s): 59958673 (6) Chronic anticoagulation: Status: Acute Code(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 COVID 19/FARRIS/Tachypnea: CONFIRMED COVID 19 + w/ FARRIS. The patient will be admitted to SCU 1 to inpatient status with COVID-19 positive status. We will have the patient on teleemt We will have the patient on telemetry. We attempted to start an IV but he was dehydrated to the point it was difficult to get IV. I will allow the patient to eat/drink for 1-2 hours and we will try to complete the CT PE protocol exam in ~6-8 hours. We will order oxygen via NC to maintain oxygen saturation >90%-98%. He did have desaturation at least once down to 88% with standing and would likely benefit from oxygen out of the hospital. He has a DVT in the LLE. We will get a CT chest to evaluate for effects of COVID-19. We have discussed remdesivir. So far he is mild to moderate COVID-19 with poor overall medical health. As he is not yet on oxygen, I will hold dexamethasone and remdesivir. If we start oxygen and he starts to worsen, we will consider using these agents. Goal #1 is to get the CT of the chest and make sure no PE. He has reported compliance with the Xarelto but worsening SOA is present. We will get CBC now. Reviewed labs from yesterday from BART Navarro. INfluenza ordered by me and negative. CBC ordered and mild anemia, normal cell sizes with MCV 91.1. Put are 449. He normally is in the 164-343 range on last few checks, suggesting some degree of hemoconcentration. No left shift noted. CMP sodium 137.7, K+ 3.94, cl 104.4, co2 25.3. BUN 10.3, cr 0.89, glucose 85.6, calcium 9.09, AST 30.4, ALT 19.8 stable. He had a NT Pro B OPTICAL EFFECTS CAMERA OPERATOR 224 yesterday suggesting mild heart failure. Ddimer ordered by BART navarro yesterday (known DVT) showed elevated. Discussed with patient and with BART navarro that this can be increased by heart disease and active clot and was not useful to check in this circumstance. I have stopped his Xarelto and will use 40mg lovenox subcutaneously. If CT suggests active PE we may increase to therapeutic dose. Again, as noted above, patient noted that he was taking Xarelto. We will admit, start IV fluids for maintenance. [employer] body weight is 77.60 kg, adjusted body weight 103.8kg. I will start NS 120ml/hour overnight which should be reasonable based on ideal body weight and should not cause any heart strain. Nurse Eva noted that the patient veins were difficult to stick due to dehydration, could not get CT. As noted, I allowed him to eat/drink a little to get the IV setup. Reviewing literature, if we need to start oxygen on the patient, I would like to use Remdesivir in this patient. He is currently on methotrexate. Recent article by Valeria López et. Al. The folate antagonist methotrexate diminishes replication of the coronavirus SARS-CoV-2 and enhances the antiviral efficacy of remdesivir in cell culture models bioRxiV 01/2020 actually suggested synergistic effects with methotrexate and Remdesivir. Their conclusions supported combo could repress virus replication to greater extent than either drug alone. So far no ARDS, so far he has some e/o lower pulmonary symptoms. We will treat with albuterol inhaler q 4 hours pro, ipratropium inhaler QID, dexamethasone 6 mg daily when O2 is needed. I was called at 1920 by radiology noting that the imaging technique that was used was inadequate and that we needed to repeat CT scan to get a better view of the chest. Patient was re-evaluated by telephone conversation at 2234. Called nurse Sampson at 2234 and she noted that he was desaturating while sleeping. She noted concern for JENNIFFER and per my orders repositioned and started 2L. I noted to go ahead and give the dexamethasone. We will reassess in the am. I noted I would like to get him on remdesivir. After discussion with Sampson and patient o2 dropping to <90% while sleeping, we have decided to start NC 2L with goal 92- 98%. We will use dexamethasone 6mg daily. We will also add Remdesivir to start 05/10/20. He meets criteria as 1. Admitted to inpatient facility, 2. Requiring supplemental oxygen. I have drawn/reviewed hepatic labs. I have added a Protime in accordance with recommendations. He has a GFR >30. He has no known hypersensitivity to the veklury. I will discuss this with him in the am that this medication in combo with MTX can greatly reduce viral replication in him. Loading dose of 200mg followed by 100mg daily x 5 days. R/B/A to medications d/w patient. I believe a 5 day stay is reasonable based on presentation. - Admit to inpatient service - Telemetry - Vitals q 8 hours - Monitor for need for O2. NC to keep >90% <98% - CBC/CMP now, repeat in am - ABG in am. - Albuterol/ipratropium HFA shared canister model. - If needing O2, add dexamethasone 6mg IV daily. - If needing o2, would like to add remdesivir as this plus MTX have been shown to be effective at reducing virus. - Difficulty starting IV. Would allow fluid hydration orally then IV to be attempted again. - CTA - Will hold xarelto and change to lovenox 40mg subcut. If active PE will use therapeutic lovenox. - F/U with patient again in am. - R/B/A to meds d/w patient, SE reviewed, handout offered regarding medications listed. We discussed remdesivir, discussed dexamethasone and O2. - Limit entry/exit into SCU1. - IV fluis NS 120ml/hour based on ideal body weight (he is tolerating PO). Will use this overnight to maintain patency of vein and to improve fluid h ydration. - Consider antibiotic therapy if febrile, if CT supports diagnosis beyond viral pneumonia like process. Hold abx for now. Azithromycin/Ceftriaxone to be considered. 2. DVT left leg/Anticoagulation: I have discussed the risks and benefits of using [Xarelto historically] with the patient. I informed the patient of the risks associated with use of anticoagulation including but not limited to catastrophic and lifethreatening intracranial, visceral, and gastrointestinal bleeding. I discussed alternatives (Vit K inhibitors, direct thrombin inhibitors and factor Xa inhibitors) including oral Coumadin with initial LMWH and need for repeat/regular INR, oral Savaysa (Xa inhibitor) with initial LMWH x 5 days, Oral Pradaxa (thrombin inhibitor) with initial LMWH and Xarelto/Eliquis which do not require any injections. Discussed these meds have other names such as Warfarin, rivaroxaban, apixaban or edoxaban. The risks and interactions of each medication were discussed independently and compared to other anticoagulants. We reviewed proximal vs Deep DVT, PE, atrial fibrillation and discussed benefits/reasons for one over another. We discussed provoked vs unprovoked DVT and discussed some common causes of DVT. - HOld xarelto (some interactions with proposed treatment for #1 are mentioned in literature). - Add lovenox 40mg subcutaneous daily. - CTA: If PE visualized, we will change to therapeutic dose of lovenox. 3. Anemia: Chronic established problem. Current Status STABLE. Well above transfusion levels. We will monitor CBC. Normocytic anemia. - CBC now - CBC am 05/10/20. low 4. Peripheral edema: Chronic process venous stasis changes, hair loss changes. 5. BMI 42.7: Federal guidelines suggest a healthy goal BMI of 18.5-24.9 for people 18 65 and 23-30 for people age 65 and older. Overweight is considered BMI 25-30, Obesity 30-40 and Morbid obesity is defined as >100 lb overweight or BMI >40. With a BMI above goal, it is recommended to utilize a diet/exercise program to get back into the appropriate range. Will f/u with patient as an OP. 6, RA/Polyarthropathy: Chronic problem followed by rheumatology. Takes MTX on . He has had his dose for today. 7. Diet: DASH once CTA completed. NPO until procedure. 8. DVT prophy: Lovenox 40mg subcut. 9. Activity: Up w/ assist. Fall precautions. 10. Disposition: 50 yr old male COVID +, RA on MTX, DVT history/PE history on Xarelto. Admitted inpatient for FARRIS. CTA ordered, poor imaging quality. Need to repeat study on 05/10/20. IV to start at 120ml/hour. If using O2 will add dex 6mg IV daily and remdesivir. >70 minutes spent on this admission tachypnea, hypoxia with standing/moving, known + confirmed COVID-19 with underlying medical problems that may put him at above average risks for this virus. Observation status not appropriate. Expected length of stay 5 days.
[2020-05-09] MEDS: VENTOLIN HFA (PER PUFF-WITH SPACER) IH PRN (17:28)
[2020-05-09] MEDS: ATROVENT HFA INHALER (PER PUFF-WITH SPACER) IH SCH ×2 (17:29→23:33)
--- NOTE | 2020-05-09 19:31 | CT ---
EXAM: CTA of the chest. History: Elevated D-dimer, short of breath Technique: Multiplanar CT images through the thorax were obtained following administration of IV con trast. MIP images and 3-D reconstructions were also acquired. Findings: Heart is mildly enlarged. Trace pericardial fluid. No pathologically enlarged thoracic l ymph nodes. Mild bilateral gynecomastia. There is motion artifact through the ascending aorta. Tiffanie luation for pulmonary embolism is limited due to suboptimal opacification of the pulmonary arteries p robably due to suboptimal bolus timing. There is no large central pulmonary embolism. Questionable filling defects within the bilateral lower lobe pulmonary arteries but these are not well opacified. Mild bilateral ground-glass changes. No densely consolidated pneumonia. No pleural fluid and no pn eumothorax. No lung masses or lung nodules. Within the visualized upper abdomen, no acute findings. No acute osseous abnormalities. The spleen measures 15 cm in length Impression: 1. The pulmonary arteries are not well opacified due to bolus timing. There is no large central pul monary embolism. Questionable bilateral lower lobe pulmonary emboli. Recommend VQ scan or repeat CT A of the chest. 2. Mild cardiomegaly. 3. Subtle bilateral ground-glass changes could be related to poor inspiratory effort or early edema. There is no consolidated pneumonia. 4. Splenomegaly. Critical results communicated to Dr. Rosen at 7:26 p.m. 05/09/2020
[2020-05-09] MEDS ORDERED: LOVENOX SUBCUT STA (19:32)
[2020-05-09] MEDS ORDERED: DECADRON IM STA (23:06)
[2020-05-09] MEDS ORDERED: DECADRON 4 MG/ML SDV IM STA (23:44)
[2020-05-10] MEDS: SODIUM CHLORIDE 500 ML IV SCH ×2 (00:04→03:50)
[2020-05-10] MEDS: ATROVENT HFA INHALER (PER PUFF-WITH SPACER) IH SCH ×4 (04:30→23:26)
[2020-05-10 05:32] LABS: ABG BASE EXCESS 1.7 (-2.0-2.0); ABG HCO3 25.7 (22.0-26.0); ABG PH 7.45 (7.35-7.45); ABG TCO2 26.8 (22.0-28.0)
[2020-05-10] MEDS: PRILOSEC PO SCH (05:33)
[2020-05-10 06:13] LABS: BASOPHILS # (AUTO) 0.1 K/uL (0-0.2); BASOPHILS % (AUTO) 0.9 % (0.0-3.0); EOSINOPHILS % (AUTO) 0.2 % (0.0-7.0); HEMATOCRIT 35.2 % (42.0-52.0); HEMOGLOBIN 11.6 g/dl (14.0-18.0); IMMATURE GRANULOCYTE % (AUTO) 0.4 % (0.0-5.0); LYMPHOCYTES # (AUTO) 0.7 K/uL (0.60-3.4); LYMPHOCYTES % (AUTO) 11.4 (10.0-50.0); MEAN CORPUSCULAR HEMOGLOBIN 30.2 pg (27.0-31.0); MEAN CORPUSCULAR VOLUME 91.7 fl (80.0-94.0); MONOCYTES # (AUTO) 0.1 K/uL (0.4-2.0); MONOCYTES % (AUTO) 1.8 (0-10); NEUTROPHILS # (AUTO) 4.9 K/ul (2.0-6.9); NEUTROPHILS % (AUTO) 85.3 % (42.2-75.2); PLATELET COUNT 402 10^3/uL (140-440); RED BLOOD COUNT 3.84 10^6/ul (4.70-6.10); WHITE BLOOD COUNT 5.68 K/ul (4.2-10.2)
[2020-05-10 06:26] LABS: PROTHROMBIN TIME 12.6 SEC (9.3-11.0)
[2020-05-10 06:27] LABS: ALANINE AMINOTRANSFERASE 20.6 U/L (0-50); ALBUMIN 3.62 g/dL (3.5-5.0); ALKALINE PHOSPHATASE 91.4 U/L (38-126); ASPARTATE AMINO TRANSFERASE 34.7 U/L (17-59); BILIRUBIN,TOTAL 0.88 mg/dL (0.2-1.3); BLOOD UREA NITROGEN 11.1 mg/dL (9-20); CALCIUM 8.97 mg/dL (8.4-10.2); CARBON DIOXIDE 25.7 mmol/L (22-30.0); CHLORIDE 105.9 mmol/L (98-107); CREATININE 0.89 mg/dL (0.60-1.10); GLUCOSE 122.2 mg/dL (74-106); POTASSIUM 4.37 mmol/L (3.5-5.1); SODIUM 138.3 mmol/L (134.5-145); TOTAL PROTEIN 7.72 g/dL (6.3-8.2)
--- NOTE | 2020-05-10 07:49 | PCM.PROG ---
Subjective: 50 yr old CM HD #2 COVID +, FARRIS, hypoxia, Orthopnea, chronic anemia, Rheum arthritis on MTX , known LLE DVT/history of PE on Lovenox now 140mg BID for tx dosing as CTA suspect new PE. Now considered Severe COVID due to <94% on RA, requiring supplemental o2. He was somewhat non compliant with xarelto as OP but noted he has been taking recently. We stopped this. He required O2 overnight due to desaturations that occurred. 2L NC started. Labs this am showed WBC normal at 5.68, hgb stable at 11.6 but chronic normocytic anemia. RDW is elevated. Neutrophils 85.3 may be steroidal demargination as he should have received dex 6 IV last night. PT this am is 12.6. We will monitor this due to use of remdesivir. CMP today showed normal sodium 13.3, K+ 4.37, cl 105.9, cr 0.89, glucose mildly elevated at 122.2. remainder within NL. Flu was negative. ABG last night 2211 showed pH 7.45 normal .pco2 37, hco3 25.7, Po2 72. Personally interpreted data suggests normal ABG, normal anion gap. Patient appears to have silent hypoxia. Aa gradient calculated to be 33.5 mmhg. Expected gradient of 16.8mmhg based on age. This signifies a ventilation- perfusion mismatch vs intrapulmonary shunting. Repeat ABG w/ supplemental oxygen today to evaluate ventilation-perfusion mismatch better. If the Pao2 does not improve, this signifies higher likelihood patient will require ventilator assistance. Review of overnight nursing notes and telemetry were done this am. Patient remained in SR throughout the night. Note from SEDA Preciado at 1933 with my information about increasing lovenox reviewed. I+O at 2200 05/09 200 in 350 out. 2218 SPO2 88-90. No distress noted. O2 drops when sleeping increased to 94-95. If awake >95%. 2L applied. RR 18-20. O2 maintained at night with supplemental 2L NC. Discussed case with am nursing. 0641 progress note did well through night. No C/O pain or SOA to the nursing this am. VSS normal in am. Feeling better with the oxygen. CrCl 144 adjusted for obesity. Rounding started 0645 discussed case with case management, nursing, patient seen in room at 7:10-7:40 face to face. Total time this am >35 minutes. REVIEW OF SYMPTOMS: (Positives bolded) General: weight loss, fever, chills, night sweats, fatigue, appetite loss HEENT: blurry vision, eye pain, eye discharge, dry eyes, decreased vision, sore throat tinnitus, bloody nose, hearing loss, sinus pain/pressure, ear pain/pressure. Respiratory: shortness of breath, cough, hemoptysis, wheezing, pleurisy, Cardiovascular: chest pain (RESOLVED), PND, palpitation, edema, orthopnea, syncope, swelling of extremities Gastro: Nausea, vomiting, diarrhea, hematemesis, abdominal pain, constipation Genito: hematuria, dysuria, glycosuria, hesitancy, frequency, incontinence [place]: Arthralgia, myalgia, muscle weakness, joint swelling, NSAID use Skin: rash, pruritis, sores, nail changes, skin thickening feet (Chronic), change in wart/mole, itching, rash, new lesions, pruritus, nail changes Neuro: Migraine, numbness, ataxia, tremor, vertigo, weakness (chronic), memory loss, Irritability, dizziness Endocrine: excessive thirst, polyuria, cold intolerance, heat intolerance, goiter Psychiatric: depression, anxiety, anti-depressants, alcohol abuse, drug abuse, insomnia, change in sleep pattern and mood changes Heme/lymph: easy bruising on anticoag, bleeding gums, blood clots, swollen glands, lymphedema, Allergic/immune: allergic rhinitis, hay fever, asthma, hives Objective: Vital Signs - 24 hr 05/09/20 13:30 05/09/20 14:00 05/09/20 15:16 Temperature 99.4 F 99.4 F Pulse Rate 88 88 Respiratory Rate 19 19 Blood Pressure 121/82 O2 Sat by Pulse Oximetry 99 99 99 05/09/20 15:21 05/09/20 20:00 05/09/20 22:00 Temperature 99.4 F 97.9 F Pulse Rate 88 77 Respiratory Rate 19 24 18 Blood Pressure 121/82 102/62 O2 Sat by Pulse Oximetry 99 99 95 05/10/20 06:00 Temperature 97.6 F Pulse Rate 85 Respiratory Rate 22 Blood Pressure 127/87 O2 Sat by Pulse Oximetry 96 Constitutional: Appearance-Mild tachypnea/mild respiratory distress persists, He is calm, talking in 5 word segments. Consistent with stated age. Orientation- Oriented x 3, alert Build and Nutrition-OBESE male BMI 42.7. General- Patient is pleasant and cooperative with the interview and exam. Integumentary: General- Skin thickening and hyperpigmented changes between toes and lateral feet bilaterally. He has 2+ Pitting edema bilateral LE to the ankle, then 1+ to the knee. He has no e/o skin breakdown. Bruising on the buttock bilaterally, superficial varicosities as well. Bilateral legs decreased hair to the knees. Pulses 1+ symmetrical. He has no open ulcers. No groin/sacral rashes, no rash to abdomen/chest. No rash/ulcers or lesions except as noted. Palpation- Normal skin moisture/turgor. Skin is warm to touch, appropriate. Capillary refill is normal bilateral Upper and lower extremity. ENMT: Nose and sinus- No sinus tenderness along frontal/maxillary region. External appearance normal and midline. Nares- bilateral quiet airflow, no discharge. Nasal mucosa- No bleeding noted and no ulcerations observed. [place], moist. Turbinates non boggy. Lips- normal color, moist without cracks/lesions Oral Cavity/Palate- hard/soft palate intact without lesions, oral mucosa pink a nd moist. Dentition assessed [missing teeth poor dentition] and discussed appropriate oral care. Tongue normal midline. Oropharynx- no pharyngeal erythema, Uvula midline. No post nasal drip. No exudate. Salivary glands- Non tender to palpation CHEST/LUNG: Inspection- symmetric chest wall no pectus deformity. Increased effort, mild distress, no use of accessory muscles. Palpation- nontender sternum, ribline. No abnormal pulsations. Auscultation- Breath sounds diminished/coarse throughout all lung marvin. Lungs w/ decreased aeration. Adventitious sounds- wheezes, crackling distally, + rales, + rhonchi. Shallow inspiration. CARDIOVASCULAR: Carotid artery- normal, no bruits or abnormal pulsations. Jugular vein- no pulsations. Palpation/Percussion- Normal PMI, no palpable thrill Auscultation- Regular rate and rhythm. No murmur noted in sitting, supine positions. Extremities- no digital clubbing, cyanosis, edema, increased warmth. ABDOMEN: Inspection- normal and no visible pulsations. Normal contour. Auscultation- Bowel sounds normal, no abdominal bruits. Palpation/Percussion- soft, non-tender, no rebound tenderness, no rigidity (guarding), no jar tenderness, no masses. Liver-no hepatomegaly, Spleen no splenomegaly, Peripheral Vascular: Upper extremity Left- Normal temperature with pink nailbeds and no ulcerations. Upper extremity Right- Normal temperature with pink nailbeds and no ulcerations. Lower extremity- Normal temperature with pink nailbeds and no ulcerations. Loss of hair bilateral LE shins. Venous stasis changes. DP pulses 2+ bilaterally. Normal capillary refill. Edema- edema 2+ to ankle 1+ to knee. Bilateral. Musculoskeletal: Generalized-edema of extremities, no cyanosis, neurovascularly intact all four extremities. no hip pain reported. Neurological: General- Moves all 4 extremities symmetrically. Symmetrical face and body posture. Cranial nerves- individually evaluated II-XII and intact. PERRLA, Normal EOMI, visual/special senses appear intact, Face is symmetrical and normal sensation/movement, normal tongue, normal strength/posture of neck musculature. Reflexes- intact with DTR 2+ patellar, Achilles, bicep, brachial, tricep. Ankle clonus normal with 2 beats. Strength- 5/5 bilateral UE and LE. Soft touch- intact bilateral UE and LE. Temperature sensation- intact bilateral UE and LE.. Ambulates with cane, wide based. Neuropsych: Oriented- Person, place, time. (AAOx3), Mood/affect- normal and congruent. Able to articulate well. Speech-Normal speech, normal rate, normal tone, normal use of language, volume and coherence. Thought content- normal wit h ability to perform basic computations and apply abstract thought/reason. Associations- intact, no SI/HI, no hallucinations, delusions, obsessions. Judgment/insight- Appropriate. Memory-Recall intact, remote and recent memory intact. Knowledge- Age appropriate fund of knowledge, concentration and attention span normal. Laboratory Results - last 24 hr 05/09/20 05/09/20 05/09/20 14:25 14:25 14:39 WBC 7.99 RBC 3.70 L Hgb 11.3 L Hct 33.7 L MCV 91.1 MCH 30.5 MCHC 33.5 RDW Coeff of Shivam 14.8 Plt Count 449 H Immature Gran % (Auto) 0.4 Neut % (Auto) 58.7 Lymph % (Auto) 27.0 [place] % (Auto) 10.3 H Eos % (Auto) 2.8 Baso % (Auto) 0.8 Neut # (Auto) 4.7 Lymph # (Auto) 2.2 [place] # (Auto) 0.8 Eos # (Auto) 0.2 Baso # (Auto) 0.1 Immature Gran # (Auto) 0.0 PT INR Puncture Site O2 Saturation ABG pH ABG pCO2 ABG pO2 ABG HCO3 ABG Total CO2 ABG Base Excess Christian Test FiO2 % Sodium 137.7 Potassium 3.94 Chloride 104.4 Carbon Dioxide 25.3 Anion Gap 11.94 BUN 10.3 Creatinine 0.89 Estimated GFR (MDRD) 90.00 BUN/Creatinine Ratio 11.57 Glucose 85.6 Calcium 9.09 Total Bilirubin 1.22 AST 30.4 ALT 19.8 Alkaline Phosphatase 89.9 Total Protein 7.66 Albumin 3.58 Globulin 4.08 Albumin/Globulin Ratio 0.87 Influ A Molecular Assay Negative by naat Influ B Molecular Assay Negative by naat 05/09/20 05/10/20 05/10/20 22:12 06:05 06:05 WBC 5.68 RBC 3.84 L Hgb 11.6 L Hct 35.2 L MCV 91.7 MCH 30.2 MCHC 33.0 RDW Coeff of Shivam 15.0 H Plt Count 402 Immature Gran % (Auto) 0.4 Neut % (Auto) 85.3 H Lymph % (Auto) 11.4 [place] % (Auto) 1.8 Eos % (Auto) 0.2 Baso % (Auto) 0.9 Neut # (Auto) 4.9 Lymph # (Auto) 0.7 [place] # (Auto) 0.1 L Eos # (Auto) 0.0 Baso # (Auto) 0.1 Immature Gran # (Auto) 0.0 PT 12.6 H INR 1.31 Puncture Site Rrad O2 Saturation 95.0 ABG pH 7.45 ABG pCO2 37.0 ABG pO2 72.0 L ABG HCO3 25.7 ABG Total CO2 26.8 ABG Base Excess 1.7 Christian Test + FiO2 % 21.0 Sodium Potassium Chloride Carbon Dioxide Anion Gap BUN Creatinine Estimated GFR (MDRD) BUN/Creatinine Ratio Glucose Calcium Total Bilirubin AST ALT Alkaline Phosphatase Total Protein Albumin Globulin Albumin/Globulin Ratio Influ A Molecular Assay Influ B Molecular Assay 05/10/20 06:05 WBC RBC Hgb Hct MCV MCH MCHC RDW Coeff of Shivam Plt Count Immature Gran % (Auto) Neut % (Auto) Lymph % (Auto) [place] % (Auto) Eos % (Auto) Baso % (Auto) Neut # (Auto) Lymph # (Auto) [place] # (Auto) Eos # (Auto) Baso # (Auto) Immature Gran # (Auto) PT INR Puncture Site O2 Saturation ABG pH ABG pCO2 ABG pO2 ABG HCO3 ABG Total CO2 ABG Base Excess Christian Test FiO2 % Sodium 138.3 Potassium 4.37 Chloride 105.9 Carbon Dioxide 25.7 Anion Gap 11.07 BUN 11.1 Creatinine 0.89 Estimated GFR (MDRD) 90.00 BUN/Creatinine Ratio 12.47 Glucose 122.2 H Calcium 8.97 Total Bilirubin 0.88 AST 34.7 ALT 20.6 Alkaline Phosphatase 91.4 Total Protein 7.72 Albumin 3.62 Globulin 4.10 Albumin/Globulin Ratio 0.88 Influ A Molecular Assay Influ B Molecular Assay (1) COVID-19: Status: Acute Code(s): U07.1 - COVID-19 SNOMED Code(s): 673544713 (2) Dyspnea on exertion: Status: Acute Code(s): R06.00 - Dyspnea, unspecified SNOMED Code(s): 88102836 (3) Left leg DVT: Status: Acute Code(s): I82.402 - Acute embolism and thrombosis of unspecified deep veins of left lower extremity SNOMED Code(s): 315083852 (4) Anemia: Status: Acute Code(s): D64.9 - Anemia, unspecified SNOMED Code(s): 286584687 (5) Rheumatoid arthritis: Status: Acute Code(s): M06.9 - Rheumatoid arthritis, unspecified SNOMED Code(s): 10272529 (6) Chronic anticoagulation: Status: Acute Code(s): Z79.01 - alf (current) use of anticoagulants SNOMED Code(s): 122854150 (7) Peripheral edema: Status: Acute Code(s): R60.9 - Edema, unspecified SNOMED Code(s): 469184097 (8) BMI 40.0-44.9, adult: Status: Acute Code(s): Z68.41 - Body mass index [BMI]40.0-44.9, adult SNOMED Code(s): 123993138 Plan: 1. Severe COVID 19 requiring supplemental O2/FARRIS/Tachypnea: We have added 2L NC through day. Patient will be NPO for CT PE protocol chest. NS 120ml/hour to continue while awaiting procedure. Am labs reviewed. The pateint had AA gradient that was elevated. Awaiting repeat ABG on 2L NC. he has known COVID 19 and has done okay overnight. Dexamethazone started last night we will continue 6mg daily. We will start remdesivir today and will provide 5 days of total treatment. We discussed treatment options, the need to use medications as rx and that the remdesivir is experimental. Reviewed that the MTX and remdesivir can be additive and can be helpful. Will continue o2 to titrate to 90-98%. - Admit to inpatient service continue admit - Telemetry - Vitals q 8 hours - Monitor for need for O2. NC to keep >90% <98% - CBC/CMP now, repeat in am - Albuterol/ipratropium HFA shared canister model. - Dexamethasone 6mg IV daily. - Remdesivir - IVF NS 120ml/hour overnight - Daily weight - CTA repeat this afternoon - Lovenox 150mg Subcut BID. - F/U with patient again in am 05/11/20 - R/B/A to meds d/w patient, SE reviewed, handout offered regarding medications listed. We discussed remdesivir, discussed dexamethasone and O2. - Limit entry/exit into SCU1. - Still consider antibiotic therapy as next line Hold abx for now. Azithromycin/Ceftriaxone to be considered. 2. DVT left leg/Anticoagulation: I have discussed the risks and benefits of using [treatment dose lovenox] with the patient. I informed the patient of the risks associated with use of anticoagulation including but not limited to catastrophic and lifethreatening intracranial, visceral, and gastrointestinal bleeding. He again reports compliance. We discussed alternatives (Vit K inhibitors, direct thrombin inhibitors and factor Xa inhibitors) including oral Coumadin with initial LMWH and need for repeat/regular INR, oral Savaysa (Xa inhibitor) with initial LMWH x 5 days, Oral Pradaxa (thrombin inhibitor) with initial LMWH and Xarelto/Eliquis which do not require any injections. Discussed these meds have other names such as Warfarin, rivaroxaban, apixaban or edoxaban. The risks and interactions of each medication were discussed independently and compared to other anticoagulants. We reviewed proximal vs Deep DVT, PE, atrial fibrillation and discussed benefits/reasons for one over another. We discussed provoked vs unprovoked DVT and discussed some common causes of DVT. - Continue to Hold xarelto - Continue to use lovenox 150mg subcutaneous daily. 3. Anemia: Chronic established problem. Current Status STABLE. Well above transfusion levels. We will monitor CBC. Normocytic anemia. - CBC am 05/11/20. 4. Peripheral edema: Chronic process venous stasis changes, hair loss changes. 5. BMI 42.7: Unchanged Federal guidelines suggest a healthy goal BMI of 18.5- 24.9 for people 18 65 and 23-30 for people age 65 and older. Overweight is considered BMI 25-30, Obesity 30-40 and Morbid obesity is defined as >100 lb overweight or BMI >40. With a BMI above goal, it is recommended to utilize a diet/exercise program to get back into the appropriate range. Will f/u with patient as an OP. 6, RA/Polyarthropathy: Chronic problem followed by rheumatology. Takes MTX on . He has had his dose for 05/10/20. 7. Diet: DASH once CTA completed. NPO until procedure. 8. DVT prophy:Not needed. - Treating DVT/PE - Lovenox 150mg subcut. 9. Activity: Up w/ assist. Fall precautions. 10. Disposition: 50 yr old male COVID +, RA on MTX, DVT history/PE history on Xarelto as outpatient. Hospital Day 2. Remdesivere day 1. Admitted inpatient for COVID 19 with Dyspnea and silent hypoxia. CTA ordered, poor imaging quality. We will get this repeated today 05/10/20. 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 Resume home meds lipitor and coreg. After adding O2 will use 5 days of dex 6mg IV daily and remdesivir. >35 minutes spent on this rounding. Known + confirmed COVID-19 with underlying medical problems that may put him at above average risks for this virus. Expected length of stay 4 more days.
[2020-05-10] MEDS: SODIUM CHLORIDE 1,000 ML IV SCH ×2 (08:00→22:33)
[2020-05-10] MEDS ORDERED: REMDESIVIR IV ONE (09:00)
[2020-05-10] MEDS ORDERED: CLARITIN PO SCH (09:00)
[2020-05-10] MEDS ORDERED: SODIUM CHLORIDE IV ONE (09:00)
[2020-05-10] MEDS: DECADRON IM SCH (09:00)
[2020-05-10] MEDS ORDERED: REMDESIVIR 200 MG in SODIUM CHLORIDE 210 ML IV ONE (09:00)
[2020-05-10] MEDS ORDERED: SODIUM CHLORIDE 1,000 ML IV SCH (09:23)
[2020-05-10] MEDS ORDERED: DECADRON IV SCH (09:30)
[2020-05-10] MEDS: LOVENOX SUBCUT SCH ×2 (09:37→21:04)
[2020-05-10] MEDS: COREG PO SCH ×2 (10:36→17:00)
[2020-05-10 11:20] LABS: ABG BASE EXCESS 1.8 (-2.0-2.0); ABG HCO3 25.6 (22.0-26.0); ABG OXYGEN SATURATION 95.5 % (95-100); ABG PH 7.46 (7.35-7.45); ABG TCO2 26.7 (22.0-28.0)
[2020-05-10] MEDS: VENTOLIN HFA (PER PUFF-WITH SPACER) IH PRN ×2 (11:24→23:25)
--- NOTE | 2020-05-10 14:46 | CT ---
EXAM: CTA chest with contrast HISTORY: Inconclusive CT PE protocol on 05/09/2020 TECHNIQUE: Multi-slice transaxial helical PE protocol. Multiplanar MIP and 3D volume rendered image s are provided. COMPARISON: None FINDINGS: Motion artifact degrades exam. Normal appearance thoracic inlet and thyroid gland. Mildly prominent nonenlarged left axillary lymph nodes are present. No thoracic adenopathy. The heart is enlarged. No pericardial effusion. Normal diameter thoracic aorta. No main pulmonary arterial filling defect . Left lower lobar pulmonary arterial filling defect (axial 38 - 42). Low density filling defect wi thin a right lower lobe segmental artery (axial 55). Esophagus within normal limits. Patent central airways. No pneumothorax or pleural effusion. Images were acquired during expiration. Lung volumes are low with passive atelectasis bilaterally. No acute findings within the visualized upper abdomen. Excreted IV contrast within the bilateral nellie l collecting systems. The spleen is enlarged. No acute osseous abnormality. IMPRESSION: 1. Left lower lobar and right lower lobe segmental artery pulmonary emboli. 2. Low lung volumes with mild passive atelectasis bilaterally. No consolidation. 3. Mild cardiomegaly. 4. Splenomegaly. Impression #1 discussed with Muna Sepulveda at 2:38 p.m.on 05/10/2020.
[2020-05-10] MEDS: LIPITOR PO SCH (21:04)
[2020-05-11] MEDS: ATROVENT HFA INHALER (PER PUFF-WITH SPACER) IH SCH ×4 (04:50→23:10)
[2020-05-11 05:52] LABS: BASOPHILS % (AUTO) 0.1 % (0.0-3.0); HEMATOCRIT 32.4 % (42.0-52.0); HEMOGLOBIN 10.8 g/dl (14.0-18.0); IMMATURE GRANULOCYTE % (AUTO) 0.4 % (0.0-5.0); LYMPHOCYTES # (AUTO) 1.3 K/uL (0.60-3.4); LYMPHOCYTES % (AUTO) 13.1 (10.0-50.0); MEAN CORPUSCULAR HEMOGLOBIN 30.3 pg (27.0-31.0); MEAN CORPUSCULAR HGB CONC 33.3 (31.8-35.4); MONOCYTES # (AUTO) 0.3 K/uL (0.4-2.0); MONOCYTES % (AUTO) 3.3 (0-10); NEUTROPHILS # (AUTO) 8.4 K/ul (2.0-6.9); NEUTROPHILS % (AUTO) 83.1 % (42.2-75.2); PLATELET COUNT 413 10^3/uL (140-440); RDW COEFFICIENT OF VARIATION 14.7 % (11.6-14.8); RED BLOOD COUNT 3.56 10^6/ul (4.70-6.10); WHITE BLOOD COUNT 10.13 K/ul (4.2-10.2)
[2020-05-11 06:05] LABS: ALANINE AMINOTRANSFERASE 20.7 U/L (0-50); ALBUMIN 3.42 g/dL (3.5-5.0); ALKALINE PHOSPHATASE 84.6 U/L (38-126); ASPARTATE AMINO TRANSFERASE 29.5 U/L (17-59); BILIRUBIN,TOTAL 0.49 mg/dL (0.2-1.3); BLOOD UREA NITROGEN 15.1 mg/dL (9-20); CALCIUM 8.73 mg/dL (8.4-10.2); CARBON DIOXIDE 23.1 mmol/L (22-30.0); CHLORIDE 108.9 mmol/L (98-107); CREATININE 0.8 mg/dL (0.60-1.10); GLUCOSE 124.8 mg/dL (74-106); POTASSIUM 3.96 mmol/L (3.5-5.1); SODIUM 139.9 mmol/L (134.5-145); TOTAL PROTEIN 7.36 g/dL (6.3-8.2)
[2020-05-11] MEDS: PRILOSEC PO SCH (06:22)
--- NOTE | 2020-05-11 06:30 | PCM.PROG ---
Subjective: 50 yr old CM HD #3 COVID +, FARRIS, hypoxia, Orthopnea, chronic anemia, Rheum arthritis on MTX , known LLE DVT/history of PE on Lovenox now 150mg BID for tx dosing as CTA found PE. Uncertain if this is truly new or due to early non compliance and resolving. Vitals overnight BP 102/66, pulse 76, rr 20, temp 97.7 and remains afebrile. O2 sat 95%. The patient is now on remdesivir 200mg yesterday, 100mg daily x 4 more days. He is receiving dexamethasone 6mg daily x 5 days as well. I+O showed 3504 ml input, 1800ml output for a balance of +1704. Labs this am showed CBC: WBC 10.13, hgb 10.8 down from 11.6. , plt 413 Predominate neutrophils likely secondary to steroidal demargination. ABG yesterday remained normal to my interpretation pH 7.46, pco2 36 and po2 74. They did this on 2L NS which did increase PO2 from 70 to 74. CMP this am showed sodium 139.9, K+ 3.96. Glucose 124.8. Again on steroids. Likely effect of that process. CT chest 05/10/20 IMPRESSION: 1. Left lower lobar and right lower lobe segmental artery pulmonary emboli. 2. Low lung volumes with mild passive atelectasis bilaterally. No consolidation. 3. Mild cardiomegaly. 4. Splenomegaly. Again, it is not certain if these are new or if they are historical. Discussed care with am nurse, reviewed overnight telemetry, reviewed imaging, reviewed labs on the floor this am starting at 0615. Remains SOA with up and active. Quickly resolves with rest. O2 2L maintained at 2L Lung sounds diminished to nursing as well as to my assessment. Remains NSR. Bilateral LE edema unchanged remains 2+ to ankles and 1+ to knees. Cane for ambulation as previously. Nursing documentation congruent with my assessment as well. Reviewed pharmacy consult from 05/10/20. D/w [facility] Pharmacist personally yesterday the use of remdesivir. The patient will get this x 4 days. PT to be checked daily. AST/ALT are okay. CrCl is good. At this time, we will continue to monitor for fluid overload, we will continue to provide remdesivir. As he was not sure about the onset of his symptoms, I would recommend making the 10 day isolation period from 05/08/20. Today is day 3 of isolation. Day 2 of remdesivir. Chart review/team discussion 6:15-6:25. Patient visited from 6:30-6:50. Time included needed time for application of specialized PPE. Total Patient care time this am >35 minutes. REVIEW OF SYMPTOMS: (Positives bolded) General: weight loss, fever, chills, night sweats, fatigue, appetite loss HEENT: blurry vision, eye pain, eye discharge, dry eyes, decreased vision, sore throat tinnitus, bloody nose, hearing loss, sinus pain/pressure, ear pain/pressure. Respiratory: shortness of breath, cough, hemoptysis, wheezing, pleurisy, Cardiovascular: chest pain (RESOLVED), PND, palpitation, edema, orthopnea, syncope, swelling of extremities Gastro: Nausea, vomiting, diarrhea, hematemesis, abdominal pain, constipation Genito: hematuria, dysuria, glycosuria, hesitancy, frequency, incontinence [place]ckelo: Arthralgia, myalgia, muscle weakness, joint swelling, NSAID use Skin: rash, pruritis, sores, nail changes, skin thickening feet (Chronic), change in wart/mole, itching, rash, new lesions, pruritus, nail changes Neuro: Migraine, numbness, ataxia, tremor, vertigo, weakness (chronic), memory loss, Irritability, dizziness Endocrine: excessive thirst, polyuria, cold intolerance, heat intolerance, goiter Psychiatric: depression, anxiety, anti-depressants, alcohol abuse, drug abuse, insomnia, change in sleep pattern and mood changes Heme/lymph: easy bruising on anticoag, bleeding gums, blood clots, swollen glands, lymphedema, Allergic/immune: allergic rhinitis, hay fever, asthma, hives Objective: Vital Signs - 24 hr 05/10/20 08:00 05/10/20 09:46 05/10/20 09:53 Temperature 98.2 F Pulse Rate 88 88 Respiratory Rate 20 18 Blood Pressure 122/80 132/80 O2 Sat by Pulse Oximetry 96 95 96 05/10/20 10:00 05/10/20 10:30 05/10/20 11:00 Temperature Pulse Rate 86 68 74 Respiratory Rate 18 18 18 Blood Pressure 132/84 122/78 128/82 O2 Sat by Pulse Oximetry 95 96 96 05/10/20 11:30 05/10/20 12:00 05/10/20 12:30 Temperature Pulse Rate 86 90 86 Respiratory Rate 20 20 20 Blood Pressure 130/92 H 126/80 112/76 O2 Sat by Pulse Oximetry 97 96 95 05/10/20 14:00 05/10/20 20:00 05/10/20 22:00 Temperature 98.2 F 97.7 F Pulse Rate 88 76 Respiratory Rate 18 18 20 Blood Pressure 104/82 102/66 O2 Sat by Pulse Oximetry 96 95 05/11/20 06:00 Temperature 97.5 F L Pulse Rate 75 Respiratory Rate 18 Blood Pressure 132/87 O2 Sat by Pulse Oximetry 97 Constitutional: Appearance-Mild tachypnea/mild respiratory distress persists, He is calm, talking in 5-7 word segments. Consistent with stated age. Orientation- Oriented x 3, alert Build and Nutrition-OBESE male BMI 42.7. General- Patient is pleasant and cooperative with the interview and exam. Integumentary: General- Skin thickening and hyperpigmented changes between toes and lateral feet bilaterally. He has 2+ Pitting edema bilateral LE to the ankle, then 1+ to the knee. He has no e/o skin breakdown. Bruising on the buttock bilaterally, superficial varicosities as well. Bilateral legs decreased hair to the knees. Pulses 1+ symmetrical. He has no open ulcers. No groin/sacral rashes, no rash to abdomen/chest. No rash/ulcers or lesions except as noted. Palpation- Normal skin moisture/turgor. Skin is warm to touch, appropriate. Capillary refill is normal bilateral Upper and lower extremity. ENMT: Nose and sinus- No sinus tenderness along frontal/maxillary region. External appearance normal and midline. Nares- bilateral quiet airflow, no discharge. Nasal mucosa- No bleeding noted and no ulcerations observed. [place], moist. Turbinates non boggy. Lips- normal color, moist without cracks/lesions Oral Cavity/Palate- hard/soft palate intact without lesions, oral mucosa pink and moist. Dentition assessed [missing teeth poor dentition] and discussed appropriate oral care. Tongue normal midline. Oropharynx- no pharyngeal erythema, Poor dentition. Uvula midline. No post nasal drip. No exudate. Salivary glands- Non tender to palpation CHEST/LUNG: Inspection- symmetric chest wall no pectus deformity. Increased effort, mild distress, no use of accessory muscles. Palpation- nontender sternum, ribline. No abnormal pulsations. Auscultation- Breath sounds diminished/coarse throughout all lung marvin. Lungs w/ decreased aeration. Adventitious sounds- wheezes, crackling distally, + rales, + rhonchi. Shallow inspiration. CARDIOVASCULAR: Carotid artery- normal, no bruits or abnormal pulsations. Jugular vein- no pulsations. Palpation/Percussion- Normal PMI, no palpable thrill Auscultation- Regular rate and rhythm. No murmur noted in sitting, supine positions. Extremities- no digital clubbing, cyanosis, edema, increased warmth. ABDOMEN: Inspection- normal and no visible pulsations. Normal contour. Auscultation- Bowel sounds normal, no abdominal bruits. Palpation/Percussion- soft, non-tender, no rebound tenderness, no rigidity (guarding), no jar tenderness, no masses. Liver-no hepatomegaly, Spleen no splenomegaly, Peripheral Vascular: Upper extremity Left- Normal temperature with pink nailbeds and no ulcerations. Upper extremity Right- Normal temperature with pink nailbeds and no ulcerations. Lower extremity- Normal temperature with pink nailbeds and no ulcerations. Loss of hair bilateral LE shins. Venous stasis changes. DP pulses 2+ bilaterally. Normal capillary refill. Edema- edema 2+ to ankle 1+ to knee. Bilateral. Unchanged. Feet remain lichenified, chronically. No new bruising. Musculoskeletal: Generalized-edema of extremities, no cyanosis, neurovascularly intact all four extremities. no hip pain reported. Neurological: General- Moves all 4 extremities symmetrically. Symmetrical face and body posture. Strength- 5/5 bilateral UE and LE. Soft touch- intact bilateral UE and LE. Temperature sensation- intact bilateral UE and LE.. Ambulates with cane, wide based. Neuropsych: Oriented- Person, place, time. (AAOx3), Mood/affect- normal and congruent. Able to articulate reasonably well. Low education. Speech-Normal speech, 5-7 word fragments now. (1) COVID-19: Status: Acute Code(s): U07.1 - COVID-19 SNOMED Code(s): 571095290 (2) Dyspnea on exertion: Status: Acute Code(s): R06.00 - Dyspnea, unspecified SNOMED Code(s): 86347239 (3) Left leg DVT: Status: Acute Code(s): I82.402 - Acute embolism and thrombosis of unspecified deep veins of left lower extremity SNOMED Code(s): 411925527 (4) Anemia: Status: Acute Code(s): D64.9 - Anemia, unspecified SNOMED Code(s): 054599441 (5) Rheumatoid arthritis: Status: Acute Code(s): M06.9 - Rheumatoid arthritis, unspecified SNOMED Code(s): 54620228 (6) Chronic anticoagulation: Status: Acute Code(s): Z79.01 - rn long term care (current) use of anticoagulants SNOMED Code(s): 051045532 (7) Peripheral edema: Status: Acute Code(s): R60.9 - Edema, unspecified SNOMED Code(s): 344657806 (8) BMI 40.0-44.9, adult: Status: Acute Code(s): Z68.41 - Body mass index [BMI]40.0-44.9, adult SNOMED Code(s): 613187093 (9) Pulmonary embolism: Status: Acute Code(s): I26.99 - Other pulmonary embolism without acute cor pulmonale SNOMED Code(s): 46833285 Plan: 1. Severe COVID 19 requiring supplemental o2/FARRIS/Tachypnea: HD #3. Remdesivir day 2/5. Dexamethasone day 3/5. Continue 2L NC. DASH diet. Saline lock fluids during day and when tolerating PO. NS 120ml/hour to continue overnight. Monitor I+O closely. So far no e/o CHF or fluid overload. Daily weights enc ouraged. Am labs reviewed again today. The patient had AA gradient that was elevated. Repeat ABG on 2L NC showed some improvement. This suggests an intrapulmonnary shunt may be less likely. The CT with PE present may be part of this process as well. He has known COVID 19+ Status. He continues to do okay. Dexamethasone now 2/5 doses. Tonight will be dose 3, 6mg daily changed to IV instead of IM. We discussed treatment options, the need to use medications as rx and that the remdesivir is experimental. Reviewed that the MTX and remdesivir can be additive and can be helpful. Will continue o2 to titrate to 90-98%. - Continue admission inpatient service Dr. Rosen - Telemetry - Vitals q 8 hours - Monitor for need for O2. NC to keep >90% <98% - CBC/CMP daily - PT daily for Remdesivir data. - Albuterol/ipratropium HFA shared canister model. - Dexamethasone 6mg IV daily x 5D - Remdesivir 100 mg daily x 5 D - IVF NS 120ml/hour overnight or when NPO - Daily weight - Continue most of home meds (SEE MAR) Stopped xarelto as on Lovenox 150mg Subcut BID. - F/U with patient again in am 05/12/20 - R/B/A to meds d/w patient, SE reviewed, handout offered regarding medications listed. We discussed remdesivir, discussed dexamethasone and O2. - Limit entry/exit into SCU1. - Still consider antibiotic therapy as next line Hold abx for now. Azithromycin/Ceftriaxone to be considered. 2. Pulmonary Embolism DVT left leg/Anticoagulation: I have discussed the risks and benefits of using [treatment dose lovenox] with the patient. I informed the patient of the risks associated with use of anticoagulation including but not limited to catastrophic and lifethreatening intracranial, visceral, and gastrointestinal bleeding. He again reports compliance. We discussed alter natives (Vit K inhibitors, direct thrombin inhibitors and factor Xa inhibitors) including oral Coumadin with initial LMWH and need for repeat/regular INR, oral Savaysa (Xa inhibitor) with initial LMWH x 5 days, Oral Pradaxa (thrombin inhibitor) with initial LMWH and Xarelto/Eliquis which do not require any injections. Discussed these meds have other names such as Warfarin, rivaroxaban, apixaban or edoxaban. The risks and interactions of each medication were discussed independently and compared to other anticoagulants. We reviewed proximal vs Deep DVT, PE, atrial fibrillation and discussed benefits/reasons for one over another. We discussed provoked vs unprovoked DVT and discussed some common causes of DVT. - Continue to Hold xarelto - Continue to use lovenox 150mg subcutaneous daily. - Would like to discharge patient on eliquis BID. 3. Anemia: Chronic established problem. Current Status mildly worsened. Continue to monitor. Normocytic anemia. - CBC am 05/12/20. 4. Peripheral edema: Chronic process venous stasis changes, hair loss changes. Elevated foot of bed. 5. BMI 42.7: Unchanged/chronic. - Will f/u with patient as an OP. 6, RA/Polyarthropathy: Chronic problem followed by rheumatology. Takes MTX on . He has had his dose for 05/10/20. On steroid tx now. He feels better than he has in a while. 7. Diet: DASH once CTA completed. NPO until procedure. 8. DVT prophy: Prophylaxis not recommended, treatment dosing as described in #2 above. - Treating DVT/PE w/ Lovenox 150mg subcut BID 9. Activity: Up w/ assist. Fall precautions. 10. Disposition: 50 yr old male COVID +, RA on MTX, DVT and now PE identified on CTA 05/10/20. Hospital Day 3. Remdesivir day 08/09. Dexamethasone day 09/06. Admitted inpatient for COVID 19 with Dyspnea and silent hypoxia. CTA ordered, poor imaging quality 05/09. Repeated on 05/10 and PE was present. Tolerating PO for liquids and meals. IV to 120ml/hour while overnight else saline lock. Continue O2 to titrate to >90. >35 minutes spent on this rounding. Known + confirmed COVID-19 with underlying medical problems that may put him at above average risks for this virus. Expected length of stay 3 more days.
[2020-05-11] MEDS: SODIUM CHLORIDE 1,000 ML IV SCH ×3 (07:59→20:00)
[2020-05-11] MEDS: SODIUM CHLORIDE 500 ML IV SCH (07:59)
[2020-05-11] MEDS ORDERED: REMDESIVIR 100 MG in SODIUM CHLORIDE 80 ML IV SCH (09:00)
[2020-05-11] MEDS: CLARITIN PO SCH (09:04)
[2020-05-11] MEDS: COREG PO SCH ×2 (09:08→17:07)
[2020-05-11] MEDS: DECADRON IVP SCH (09:08)
[2020-05-11] MEDS: REMDESIVIR 100 MG in SODIUM CHLORIDE 80 ML IV SCH (09:10)
[2020-05-11] MEDS: LOVENOX SUBCUT SCH ×2 (09:17→21:36)
[2020-05-11] MEDS: VENTOLIN HFA (PER PUFF-WITH SPACER) IH PRN ×2 (11:05→23:10)
[2020-05-11] MEDS: LIPITOR PO SCH (21:38)
[2020-05-12] MEDS: SODIUM CHLORIDE 1,000 ML IV SCH (04:09)
[2020-05-12] MEDS: ATROVENT HFA INHALER (PER PUFF-WITH SPACER) IH SCH ×4 (04:55→23:20)
[2020-05-12 05:45] LABS: BASOPHILS % (AUTO) 0.2 % (0.0-3.0); HEMATOCRIT 31.8 % (42.0-52.0); HEMOGLOBIN 10.4 g/dl (14.0-18.0); IMMATURE GRANULOCYTE # (AUTO) 0.1 (0.0-1.0); IMMATURE GRANULOCYTE % (AUTO) 0.6 % (0.0-5.0); LYMPHOCYTES # (AUTO) 2.4 K/uL (0.60-3.4); LYMPHOCYTES % (AUTO) 24.3 (10.0-50.0); MEAN CORPUSCULAR HEMOGLOBIN 30.1 pg (27.0-31.0); MEAN CORPUSCULAR HGB CONC 32.7 (31.8-35.4); MEAN CORPUSCULAR VOLUME 92.2 fl (80.0-94.0); MONOCYTES # (AUTO) 0.4 K/uL (0.4-2.0); MONOCYTES % (AUTO) 4.4 (0-10); NEUTROPHILS % (AUTO) 70.5 % (42.2-75.2); PLATELET COUNT 392 10^3/uL (140-440); RED BLOOD COUNT 3.45 10^6/ul (4.70-6.10)
[2020-05-12 05:57] LABS: ALANINE AMINOTRANSFERASE 22.3 U/L (0-50); ALBUMIN 3.21 g/dL (3.5-5.0); ALKALINE PHOSPHATASE 70.6 U/L (38-126); ASPARTATE AMINO TRANSFERASE 34.6 U/L (17-59); BILIRUBIN,TOTAL 0.35 mg/dL (0.2-1.3); BLOOD UREA NITROGEN 17.7 mg/dL (9-20); CALCIUM 8.47 mg/dL (8.4-10.2); CARBON DIOXIDE 23.9 mmol/L (22-30.0); CHLORIDE 109.8 mmol/L (98-107); CREATININE 0.86 mg/dL (0.60-1.10); GLUCOSE 92.9 mg/dL (74-106); POTASSIUM 3.98 mmol/L (3.5-5.1); PROTHROMBIN TIME 12.7 SEC (9.3-11.0); SODIUM 139.7 mmol/L (134.5-145); TOTAL PROTEIN 6.97 g/dL (6.3-8.2)
[2020-05-12] MEDS: PRILOSEC PO SCH (06:18)
--- NOTE | 2020-05-12 06:23 | PCM.PROG ---
Subjective: Subjective: 50 yr old CM HD #3 COVID +, FARRIS, hypoxia, Orthopnea, chronic anemia, Rheum arthritis on MTX , known LLE DVT/history of PE on Lovenox now 150mg BID for tx dosing as CTA suspect new PE. Now considered Severe COVID due to <94% on RA, requiring supplemental o2. On remdesivir and getting dexamethasone 6mg IV daily as per guidelines. ABG yesterday improved Po2 some compared to previous day. Labs this am showed hemoglobin have dropped from 10.8 to 10.4. WBC stable at 9.90. Plt 392. CMP WNLL. Sodium 139.7, K+ 3.98. cl 109.8. Cr 0.86. Glucose 92.9. Calcium 8.47. AST 34.6. ALT 22.3. albumin 3.21. PT stable at 12.7. Monitored daily due to remdesivir. No new imaging. Vitals overnight reviewed. Now maintaining o2 at >95% but mostly <98% on 2L NC. BP stable throughout the night. Remains afebrile. IV NS 120ml/hour overnight while NPO. I am going to stop this now that he is positive fluid. He has had 2+ Pitting edema to bilateral ankles and 1+ to knee. He is voiding well, urinating, BM x1. Tolerating enough liquids during day to not need the overnight fluids. I will saline lock IV today, d/c fluids. Eating well per nursing. Telemetry overnight has shown that the patient is doing well, remaining in NSR. Discussed care with nursing, reviewed pharmacy notation. Remdesivir given 1050 yesterday am. Showered x 1. VS 94% when standing, better than 88% at admit. Telemetry showed an SPO2 of 92 at 0100 this am. At discharge will recommend referral to sleep medicine for JENNIFFER evaluation. Am note [id number] from Angela Powell reviewed, appreciate input. Patient is doing very well and improving. SOA is better. He notes less difficulty with wind. Joint pain is feeling better due to steroids. Started rounding on patient at 06:30 and finished at 0715. >35 minutes spend on patient today. Reviewed labs, no new imaging, discussed care with nursing, reviewed pharmacy note all on floor. REVIEW OF SYMPTOMS: (Positives bolded) General: weight loss, fever, chills, night sweats, fatigue, appetite loss (improved) HEENT: blurry vision, eye pain, eye discharge, dry eyes, decreased vision, sore throat tinnitus, bloody nose, hearing loss, sinus pain/pressure, ear pain/pressure. Respiratory: shortness of breath, cough, hemoptysis, wheezing, pleurisy, Cardiovascular: chest pain (RESOLVED), PND, palpitation, edema, orthopnea, syncope, swelling of extremities Gastro: Nausea, vomiting, diarrhea, hematemesis, abdominal pain, constipation Genito: hematuria, dysuria, glycosuria, hesitancy, frequency, incontinence [place]: Arthralgia, myalgia, muscle weakness, joint swelling, NSAID use Skin: rash, pruritis, sores, nail changes, skin thickening feet (Chronic), change in wart/mole, itching, rash, new lesions, pruritus, nail changes Neuro: Migraine, numbness, ataxia, tremor, vertigo, weakness (chronic), memory loss, Irritability, dizziness Endocrine: excessive thirst, polyuria, cold intolerance, heat intolerance, goiter Psychiatric: depression, anxiety, anti-depressants, alcohol abuse, drug abuse, insomnia, change in sleep pattern and mood changes Heme/lymph: easy bruising on anticoag, bleeding gums, blood clots, swollen glands, lymphedema, Allergic/immune: allergic rhinitis, hay fever, asthma, hives Objective: Vital Signs - 24 hr 05/11/20 08:00 05/11/20 09:10 05/11/20 09:30 Temperature Pulse Rate Respiratory Rate 19 Blood Pressure 126/84 123/76 O2 Sat by Pulse Oximetry 05/11/20 10:00 05/11/20 10:49 05/11/20 14:00 Temperature 98.9 F 98.6 F Pulse Rate 76 83 Respiratory Rate 19 19 Blood Pressure 129/85 131/86 124/78 O2 Sat by Pulse Oximetry 100 98 05/11/20 22:00 05/12/20 05:37 Temperature 98.5 F 98.2 F Pulse Rate 63 66 Respiratory Rate 19 18 Blood Pressure 110/75 117/82 O2 Sat by Pulse Oximetry 96 95 Constitutional: Appearance-Mild tachypnea/mild respiratory distress persists, He is calm, talking in near full sentences. Consistent with stated age. Orientation- Oriented x 3, alert Build and Nutrition-OBESE male BMI 42.7. General- Patient is pleasant and cooperative with the interview and exam. Integumentary: General- Skin thickening and hyperpigmented changes between toes and lateral feet bilaterally. He has 2+ Pitting edema bilateral LE to the ankle, then 1+ to the knee. He has no e/o skin breakdown. Bruising on the buttock bilaterally, superficial varicosities as well. Bilateral legs decreased hair to the knees. Pulses 1+ symmetrical. He has no open ulcers. No groin/sacral rashes, no rash to abdomen/chest. No rash/ulcers or lesions except as noted. Palpation- Normal skin moisture/turgor. Skin is warm to touch, appropriate. Capillary refill is normal bilateral Upper and lower extremity. ENMT: Nose and sinus- No sinus tenderness along frontal/maxillary region. External appearance normal and midline. Nares- bilateral quiet airflow, no discharge. Nasal mucosa- No bleeding noted and no ulcerations observed. [place], moist. Turbinates non boggy. Lips- normal color, moist without cracks/lesions Oral Cavity/Palate- hard/soft palate intact without lesions, oral mucosa pink and moist. Dentition assessed [missing teeth poor dentition] and discussed appropriate oral care. Tongue normal midline. Oropharynx- no pharyngeal eryth johanna, Poor dentition. Uvula midline. No post nasal drip. No exudate. Salivary glands- Non tender to palpation CHEST/LUNG: Inspection- symmetric chest wall no pectus deformity. Increased effort, mild distress, no use of accessory muscles. Palpation- nontender sternum, ribline. No abnormal pulsations. Auscultation- Breath sounds diminished/coarse throughout all lung marvin. Lungs w/ decreased aeration. Adventitious sounds- wheezes, crackling distally, + rales, + rhonchi. Deeper inspiration. Talking in near full sentences. CARDIOVASCULAR: Carotid artery- normal, no bruits or abnormal pulsations. Jugular vein- no pulsations. Palpation/Percussion- Normal PMI, no palpable thrill Auscultation- Regular rate and rhythm. No murmur noted in sitting, supine positions. Extremities- no digital clubbing, cyanosis, edema, increased warmth. ABDOMEN: Inspection- normal and no visible pulsations. Normal contour. Auscultation- Bowel sounds normal, no abdominal bruits. Palpation/Percussion- soft, non-tender, no rebound tenderness, no rigidity (guarding), no jar tenderness, no masses. Liver-no hepatomegaly, Spleen no splenomegaly, Peripheral Vascular: Upper extremity Left- Normal temperature with pink nailbeds and no ulcerations. Upper extremity Right- Normal temperature with pink nailbeds and no ulcerations. Lower extremity- Normal temperature with pink nailbeds and no ulcerations. Loss of hair bilateral LE shins. Venous stasis changes. DP pulses 2+ bilaterally. Normal capillary refill. Edema- edema 2+ to ankle 1+ to knee. Bilateral. Unchanged. Feet remain lichenified, chronically. No new bruising. Musculoskeletal: Generalized-edema of extremities, no cyanosis, neurovascularly intact all four extremities. no hip pain reported. Neurological: General- Moves all 4 extremities symmetrically. Symmetrical face and body posture. Strength- 5/5 bilateral UE and LE. Soft touch- intact bilateral UE and LE. Temperature sensation- intact bilateral UE and LE.. Ambulates with cane, wide based. Neuropsych: Oriented- Person, place, time. (AAOx3), Mood/affect- normal and congruent. Able to articulate reasonably well. Low education. Speech-Normal speech nearly fluent. Discussed election. He was able to keep up with current events. Laboratory Results - last 24 hr 05/12/20 05/12/20 05/12/20 05:40 05:40 05:40 WBC 9.90 RBC 3.45 L Hgb 10.4 L Hct 31.8 L MCV 92.2 MCH 30.1 MCHC 32.7 RDW Coeff of Shivam 15.0 H Plt Count 392 Immature Gran % (Auto) 0.6 Neut % (Auto) 70.5 Lymph % (Auto) 24.3 [place] % (Auto) 4.4 Eos % (Auto) 0.0 Baso % (Auto) 0.2 Neut # (Auto) 7.0 H Lymph # (Auto) 2.4 [place] # (Auto) 0.4 Eos # (Auto) 0.0 Baso # (Auto) 0.0 Immature Gran # (Auto) 0.1 PT 12.7 H INR 1.32 Sodium 139.7 Potassium 3.98 Chloride 109.8 H Carbon Dioxide 23.9 Anion Gap 9.98 BUN 17.7 Creatinine 0.86 Estimated GFR (MDRD) 94.00 BUN/Creatinine Ratio 20.58 Glucose 92.9 Calcium 8.47 Total Bilirubin 0.35 AST 34.6 ALT 22.3 Alkaline Phosphatase 70.6 Total Protein 6.97 Albumin 3.21 L Globulin 3.76 Albumin/Globulin Ratio 0.85 (1) COVID-19: Status: Acute Code(s): U07.1 - COVID-19 SNOMED Code(s): 499058377 (2) Dyspnea on exertion: Status: Acute Code(s): R06.00 - Dyspnea, unspecified SNOMED Code(s): 30927237 (3) Left leg DVT: Status: Acute Code(s): I82.402 - Acute embolism and thrombosis of unspecified deep veins of left lower extremity SNOMED Code(s): 731431871 (4) Anemia: Status: Acute Code(s): D64.9 - Anemia, unspecified SNOMED Code(s): 271828326 (5) Rheumatoid arthritis: Status: Acute Code(s): M06.9 - Rheumatoid arthritis, unspecified SNOMED Code(s): 26599172 (6) Chronic anticoagulation: Status: Acute Code(s): Z79.01 - long-term (current) use of anticoagulants SNOMED Code(s): 430248873 (7) Peripheral edema: Status: Acute Code(s): R60.9 - Edema, unspecified SNOMED Code(s): 239926058 (8) BMI 40.0-44.9, adult: Status: Acute Code(s): Z68.41 - Body mass index [BMI]40.0-44.9, adult SNOMED Code(s): 659228480 (9) Pulmonary embolism: Status: Acute Code(s): I26.99 - Other pulmonary embolism without acute cor pulmonale SNOMED Code(s): 50398708 Plan: 1. Severe COVID 19 requiring supplemental o2/FARRSI/Tachypnea: HD #4. Remdesivir day 3/5. Dexamethasone day 4/5. Continue 2L NC. DASH diet. Saline lock fluids now as tolerating liquids well and balance is net +. After discussion with nurse Lopez, she has had several patients on remdesivir. She has noted some ankur moments, he has not had any HB or any dangerous rhythm changes. He is on high dose lovenox due to size and due to PE on CTA. He had a small bit of blood when blowing nose yesterday likely from O2. Otherwise BM x 2 yesterday no bleeding. He has stable hgb. Stop fluids by IV. We will continue to monitor I+O closely. Weight patient QOD. So far no e/o CHF or fluid overload, breathing is better O2 is stable >94% and except 1 reading <98%. Am labs reviewed again today. He has known COVID 19+ Status requiring O2. He continues to do okay and actually feels better today. Dexamethasone daily. We discussed treatment options, the need to use medications as rx and that the remdesivir is experimental. Reviewed that the MTX and remdesivir can be additive and can be helpful. Will continue o2 to titrate to 90-98%. - Continue admission inpatient service Dr. Rosen - Telemetry - Vitals q 8 hours - Monitor for need for O2. NC to keep >90% <98% - CBC/CMP daily - PT daily for Remdesivir data. - Albuterol/ipratropium HFA shared canister model. - Dexamethasone 6mg IV daily x 5D - Remdesivir 100 mg daily x 5 D - IVF NS 120ml/hour held. - QOD weight - Continue most of home meds (SEE SEP) - F/U with patient again in am 05/13/20 - R/B/A to meds d/w patient, SE reviewed, handout offered regarding medications listed. We discussed remdesivir, discussed dexamethasone and O2. - Limit entry/exit into SCU1. - Still consider antibiotic therapy as next line Hold abx for now. Azithromycin/Ceftriaxone to be considered. 2. Pulmonary Embolism DVT left leg/Anticoagulation: Stable on lovenox 150mg daily. patient aware of r/b/a to this agent. Streaking on tissue with blowing nose else no s/sx of bleed. Monitor. Humidify o2 encouraged. - Continue to Hold xarelto - Continue to use lovenox 150mg subcutaneous daily. - Would like to discharge patient on eliquis BID. 3. Anemia: Chronic established problem. Current Status stable. Continue to monitor. Normocytic anemia. - CBC am 05/13/20. 4. Peripheral edema: Chronic process venous stasis changes, hair loss changes. Elevated foot of bed. 5. BMI 42.7: Unchanged/chronic. Weight patient today. - Will f/u with patient as an OP. 6, RA/Polyarthropathy: Chronic problem followed by rheumatology. Takes MTX on . He has had his dose for 05/10/20. On steroid tx now. He feels better than he has in a while. Improved status per patient report. 7. Diet: DASH 8. DVT prophy: Prophylaxis not recommended, treatment dosing as described in #2 above. - Treating DVT/PE w/ Lovenox 150mg subcut BID 9. Activity: Up w/ assist. Fall precautions. 10. Disposition: 50 yr old male COVID + considered severe as on supplemental O2 due to <94% on RA, history of Rheum arthritis on MTX, DVT and PE identified on CTA 05/10/20. Hospital Day 4. Remdesivir day 09/06. Dexamethasone day 10/07. Admitted inpatient for COVID 19 with Dyspnea and silent hypoxia. CTA ordered, poor imaging quality 05/09. Repeated on 05/10 and PE was present. Tolerating PO for liquids and meals. IV saline locked as tolerating liquids well. Continue O2 to titrate to >90 <98. >35 minutes spent on this rounding. Known + confirmed COVID-19 with underlying medical problems that may put him at above average risks for this virus. Expected length of stay 3 more days.
[2020-05-12] MEDS: REMDESIVIR 100 MG in SODIUM CHLORIDE 80 ML IV SCH (08:45)
[2020-05-12] MEDS: CLARITIN PO SCH (08:48)
[2020-05-12] MEDS: COREG PO SCH ×2 (08:49→16:37)
[2020-05-12] MEDS: DECADRON IVP SCH (08:50)
[2020-05-12] MEDS: LOVENOX SUBCUT SCH ×2 (09:14→20:28)
[2020-05-12] MEDS: VENTOLIN HFA (PER PUFF-WITH SPACER) IH PRN (11:00)
[2020-05-12] MEDS: LIPITOR PO SCH (20:27)
[2020-05-13] MEDS: ATROVENT HFA INHALER (PER PUFF-WITH SPACER) IH SCH ×4 (05:04→23:10)
[2020-05-13 05:16] LABS: BASOPHILS % (AUTO) 0.4 % (0.0-3.0); EOSINOPHILS % (AUTO) 0.1 % (0.0-7.0); HEMOGLOBIN 10.7 g/dl (14.0-18.0); IMMATURE GRANULOCYTE # (AUTO) 0.2 (0.0-1.0); IMMATURE GRANULOCYTE % (AUTO) 1.6 % (0.0-5.0); LYMPHOCYTES # (AUTO) 3.2 K/uL (0.60-3.4); LYMPHOCYTES % (AUTO) 30.7 (10.0-50.0); MEAN CORPUSCULAR HEMOGLOBIN 30.1 pg (27.0-31.0); MEAN CORPUSCULAR HGB CONC 32.4 (31.8-35.4); MONOCYTES # (AUTO) 0.5 K/uL (0.4-2.0); MONOCYTES % (AUTO) 4.7 (0-10); NEUTROPHILS # (AUTO) 6.6 K/ul (2.0-6.9); NEUTROPHILS % (AUTO) 62.5 % (42.2-75.2); PLATELET COUNT 410 10^3/uL (140-440); RED BLOOD COUNT 3.55 10^6/ul (4.70-6.10); WHITE BLOOD COUNT 10.47 K/ul (4.2-10.2)
[2020-05-13 05:27] LABS: ALANINE AMINOTRANSFERASE 41.6 U/L (0-50); ALBUMIN 3.33 g/dL (3.5-5.0); ALKALINE PHOSPHATASE 71.7 U/L (38-126); ASPARTATE AMINO TRANSFERASE 53.3 U/L (17-59); BILIRUBIN,TOTAL 0.4 mg/dL (0.2-1.3); BLOOD UREA NITROGEN 16.5 mg/dL (9-20); CALCIUM 8.4 mg/dL (8.4-10.2); CHLORIDE 107.6 mmol/L (98-107); CREATININE 0.86 mg/dL (0.60-1.10); GLUCOSE 84.7 mg/dL (74-106); POTASSIUM 4.18 mmol/L (3.5-5.1); SODIUM 139.8 mmol/L (134.5-145); TOTAL PROTEIN 6.95 g/dL (6.3-8.2)
[2020-05-13] MEDS: PRILOSEC PO SCH (05:50)
--- NOTE | 2020-05-13 06:54 | PCM.PROG ---
Subjective: Subjective: 50 yr old CM HD #5 COVID +, FARRIS, hypoxia, Orthopnea, chronic anemia, Rheum arthritis on MTX , known LLE DVT/history of PE on Lovenox now 150mg BID for tx dosing as CTA suspect new PE. Considered Severe COVID due to <94% on RA, requiring supplemental o2. On remdesivir and getting dexamethasone 6mg IV daily as per guidelines. Today is day 45 for remdesivir. Today will be day 55 for dexamethasone. I plan for patient to be d/c tomorrow. He does not know when his symptoms started and thus his day 1 of quarantine is 05/08/20 and last date will be 05/18 with release on 05/19/20. I have discussed care with patient again this am. We have discussed his family requiring isolation/quarantine from 05/19-06/02 as he will return home. It is from the last date of known contact. He understood. Labs this am showed mild white count elevation at 10.47. Hgb increased from 10.4 to 10.7 and plt remain stable at 410. Daily PT while on remdesivir showed pt 12.7 and INR 1.32, similar to 05/10/20. Chemistry panel this am showed normal sodium 139.8, K+ 4.189, Normal cr 0.86 and stable. Remainder to include AST (53.3, alt 41.6 remain) stable. Albumin remains mildly low at 3.33. Due to increased PO intake and tolerating well, we have saline locked his IV. I+) over last 24 hours showed 2340ml in and 1900 out with balance of 440ml. This is more neutral than last few days. He is voiding and not all are recorded. No additional imaging. Telemetry monitored. He has had some bradycardia. Per nursing ad claudia movement. No falls. He is now tolerating 98% on RA. HE will need to have outpatient sleep study for JENNIFFER. Dry cough persists, no sputum production. Remains on COVID-19 isolation at this time. Overnnight HR dropped to 56. Vitals reviewed. Remains afebrile. Dropped to 93% at 2130. Else remained >95. He is getting remdesivir. Due to isolation protocol, he cannot leave/return to get outpatient infusion due to pa ndemic spread. He has had to stay as an inpatient due to IV medication that is needed daily due to the COVID-19. Oral options are not available. Patient required admission and continues to require admission through tomorrow 05/14/20 which will be his discharge date after last dose of remdesivir. Pharmacy note reviewed. Patient rounding started at 6:30, donned PPE, entered room discussed care with patient. Not included documentation, evaluation completed at 07:05. 35 minutes time spent with patient this am. REVIEW OF SYMPTOMS: (Positives bolded) General: weight loss, fever, chills, night sweats, fatigue, appetite loss (improved) HEENT: blurry vision, eye pain, eye discharge, dry eyes, decreased vision, sore throat tinnitus, bloody nose, hearing loss, sinus pain/pressure, ear pain/pressure. Respiratory: shortness of breath, cough, hemoptysis, wheezing, pleurisy, Cardiovascular: chest pain (RESOLVED), PND, palpitation, edema, orthopnea, syncope, swelling of extremities Gastro: Nausea, vomiting, diarrhea, hematemesis, abdominal pain, constipation Genito: hematuria, dysuria, glycosuria, hesitancy, frequency, incontinence [place]: Arthralgia, myalgia, muscle weakness, joint swelling, NSAID use Skin: rash, pruritis, sores, nail changes, skin thickening feet (Chronic), change in wart/mole, itching, rash, new lesions, pruritus, nail changes Neuro: Migraine, numbness, ataxia, tremor, vertigo, weakness (chronic), memory loss, Irritability, dizziness Ambulates with cane. Endocrine: excessive thirst, polyuria, cold intolerance, heat intolerance, goi ter Psychiatric: depression, anxiety, anti-depressants, alcohol abuse, drug abuse, insomnia, change in sleep pattern and mood changes Heme/lymph: easy bruising on anticoag, bleeding gums, blood clots, swollen glands, lymphedema, Allergic/immune: allergic rhinitis, hay fever, asthma, hives Objective: Vital Signs - 24 hr 05/12/20 08:00 05/12/20 08:45 05/12/20 09:15 Temperature Pulse Rate 62 60 Respiratory Rate 19 19 19 Blood Pressure 112/72 116/62 O2 Sat by Pulse Oximetry 98 96 05/12/20 09:45 05/12/20 10:00 11/08/20 14:00 Temperature 98.0 F Pulse Rate 60 57 L Respiratory Rate 19 18 Blood Pressure 114/62 110/58 L O2 Sat by Pulse Oximetry 96 96 96 05/12/20 18:49 05/12/20 21:30 05/13/20 06:00 Temperature 97.6 F 97.5 F L Pulse Rate 60 60 Respiratory Rate 21 17 16 Blood Pressure 139/91 H O2 Sat by Pulse Oximetry 93 L 97 Constitutional: Appearance-Mild tachypnea at times but now mostly better. No respiratory distress now. He is calm, talking in full sentences. Consistent with stated age. Orientation- Oriented x 3, alert Build and Nutrition-OBESE male BMI 42.7. General- Patient is pleasant and cooperative with the interview and exam. Integumentary: General- Skin thickening and hyperpigmented changes between toes and lateral feet bilaterally. Unchanged He has 2+ Pitting edema bilateral LE to the ankle, then 1+ to the knee. He has no e/o skin breakdown. No new ecchymoses, no e/o bleeding. superficial varicosities. Bilateral legs decreased hair to the knees. Pulses 1+ symmetrical. He has no open ulcers. No groin/sacral rashes, no rash to abdomen/chest. No rash/ulcers or lesions except as noted. Palpation- Normal skin moisture/turgor. Skin is warm to touch, appropriate. Capillary refill is normal bilateral Upper and lower extremity. ENMT: Nose and sinus- No sinus tenderness along frontal/maxillary region. External appearance normal and midline. Nares- bilateral quiet airflow, no discharge. Nasal mucosa- No bleeding noted and no ulcerations observed. [place], moist. Turbinates non boggy. Lips- normal color, moist without cracks/lesions Oral Cavity/Palate- hard/soft palate intact without lesions, oral mucosa pink and moist. Dentition assessed [missing teeth poor dentition] and discussed appropriate oral care. Tongue normal midline. Oropharynx- no pharyngeal erythema, Poor dentition. Uvula midline. No post nasal drip. No exudate. Salivary glands- Non tender to palpation CHEST/LUNG: Inspection- symmetric chest wall no pectus deformity. Now normal effort, talking in full sentences, no distress, no use of accessory muscles. Palpation- nontender sternum, ribline. No abnormal pulsations. Auscultation- Breath sounds diminished/coarse throughout all lung marvin this appears stable/chronic. Lungs w/ decreased aeration. Adventitious sounds- NO wheezes, No crackling distally, + rhonchi. Deeper inspiration. Talking in full sentences. CARDIOVASCULAR: Carotid artery- normal, no bruits or abnormal pulsations. Jugular vein- no pulsations. Palpation/Percussion- Normal PMI, no palpable thrill Auscultation- Regular rate and rhythm. No murmur noted in sitting, supine positions. Extremities- no digital clubbing, cyanosis, increased warmth. + Edema as noted above. No edema in bilateral UE. ABDOMEN: Inspection- normal and no visible pulsations. Normal contour. Ausc ultation- Bowel sounds normal, no abdominal bruits. Palpation/Percussion- soft, non-tender, no rebound tenderness, no rigidity (guarding), no jar tenderness, no masses. Liver- habitus limited. no hepatomegaly, Spleen no splenomegaly, Peripheral Vascular: Upper extremity Left- Normal temperature with pink nailbeds and no ulcerations. Upper extremity Right- Normal temperature with pink nailbeds and no ulcerations. Lower extremity- Normal temperature with pink nailbeds and no ulcerations. Loss of hair bilateral LE shins. Venous stasis changes. DP pulses 2+ bilaterally. Normal capillary refill. Edema- edema 2+ to ankle 1+ to knee. Bilateral. Unchanged. Feet remain lichenified, chronically. No new bruising. Musculoskeletal: Generalized-edema of bilateral LEextremities, no cyanosis, neurovascularly intact all four extremities. no hip pain reported. Neurological: General- Moves all 4 extremities symmetrically. Symmetrical face and body posture. Strength- 5/5 bilateral UE and LE. Soft touch- intact bilateral UE and LE. Temperature sensation- intact bilateral UE and LE.. Ambulates with cane, wide based. Neuropsych: Oriented- Person, place, time. (AAOx3), Mood/affect- normal and congruent. Able to articulate reasonably well. Low education. Speech-Normal speech nearly fluent. Discussed election. He was able to keep up with current events. Laboratory Results - last 24 hr 05/13/20 05/13/20 04:50 04:50 WBC 10.47 H RBC 3.55 L Hgb 10.7 L Hct 33.0 L MCV 93.0 MCH 30.1 MCHC 32.4 RDW Coeff of Shivam 15.0 H Plt Count 410 Immature Gran % (Auto) 1.6 Neut % (Auto) 62.5 Lymph % (Auto) 30.7 [place] % (Auto) 4.7 Eos % (Auto) 0.1 Baso % (Auto) 0.4 Neut # (Auto) 6.6 Lymph # (Auto) 3.2 [place] # (Auto) 0.5 Eos # (Auto) 0.0 Baso # (Auto) 0.0 Immature Gran # (Auto) 0.2 Sodium 139.8 Potassium 4.18 Chloride 107.6 H Carbon Dioxide 27.0 Anion Gap 9.38 BUN 16.5 Creatinine 0.86 Estimated GFR (MDRD) 94.00 BUN/Creatinine Ratio 19.18 Glucose 84.7 Calcium 8.40 Total Bilirubin 0.40 AST 53.3 ALT 41.6 Alkaline Phosphatase 71.7 Total Protein 6.95 Albumin 3.33 L Globulin 3.62 Albumin/Globulin Ratio 0.91 (1) COVID-19: Status: Acute Code(s): U07.1 - COVID-19 SNOMED Code(s): 613481803 (2) Dyspnea on exertion: Status: Acute Code(s): R06.00 - Dyspnea, unspecified SNOMED Code(s): 04736368 (3) Left leg DVT: Status: Acute Code(s): I82.402 - Acute embolism and thrombosis of unspecified deep veins of left lower extremity SNOMED Code(s): 740822955 (4) Anemia: Status: Acute Code(s): D64.9 - Anemia, unspecified SNOMED Code(s): 655393746 (5) Rheumatoid arthritis: Status: Acute Code(s): M06.9 - Rheumatoid arthritis, unspecified SNOMED Code(s): 95116033 (6) Chronic anticoagulation: Status: Acute Code(s): 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 Severe COVID 19 requiring supplemental o2/FARRIS/Tachypnea: HD #5. Remdesivir day 4/5. Dexamethasone day 11/06. Continue 2L NC to keep O2 92-98%. DASH diet. Continue saline lock fluids as tolerating liquids well and balance is net +. Tele reviewed. He is having some ankur overnight, during day no issues. Breathing is better, overall improving. As he is under quarantine, he cannot return for outpatient infusion/home health infusion of last few days of the remdesivir. Oral options are not present. Due to this, he will need to remain inpatient for this therapy. It is medically necessary for him to remain here until 05/14/20 and he will be discharged at that point. He has not had any apparent issues with remdesivir, Hgb remains stable. He is on high dose treatment dose lovenox due to size and due to PE on CTA. Otherwise BM x 1-2 per day, non bloody, normal urine output, up ad claudia, using cane. So far he has no e/o CHF or fluid overload, breathing is much better than date of admit. O2 is stable >94% and except 1 reading 93%. Am labs reviewed again today. He has known COVID 19+ Status requiring O2. He continues to do well and feels ready to go home tomorrow. Dexamethasone daily x 5 days, this is his last day. We discussed treatment options, the need to use medications as rx and that the remdesivir is experimental. Reviewed that the MTX and remdesivir can be additive and can be helpful. Will continue o2 to titrate to 90-98%. - Continue admission inpatient service Dr. Rosen - Telemetry - Vitals q 8 hours - Monitor for need for O2. NC to keep >90% <98% - CBC/CMP daily - PT daily for Remdesivir data. - Albuterol/ipratropium HFA shared canister model. - Dexamethasone 6mg IV daily x 5D - Remdesivir 100 mg daily x 5 D - QOD weight - Continue most of home meds (SEE SEP) - F/U with patient again in am 05/14/20 D/C planning ongoing, plan for 05/14/20 d/c. - R/B/A to meds d/w patient, SE reviewed, handout offered regarding medications listed. We discussed remdesivir, discussed dexamethasone and O2. - Limit entry/exit into [facility]. 2. Pulmonary Embolism DVT left leg/Anticoagulation: Stable on lovenox 150mg daily. patient aware of r/b/a to this agent. Streaking on tissue with blowing nose x 1, no further issues. No s/sx of bleed. hgb stable. Monitor. Humidify o2 encouraged. - Continue to Hold xarelto - Continue to use lovenox 150mg subcutaneous daily. - Would like to discharge patient on eliquis BID. 3. Anemia: Chronic established problem, improving. Hgb is up a little today, may be some hemeconcentration as IV fluids held. Current Status stable. Continue to monitor. Normocytic anemia. - CBC am 05/14/20. 4. Peripheral edema: Chronic process venous stasis changes, hair loss changes. Elevated foot of bed. Appears unchanged/chronic. 5. BMI 42.7: Unchanged/chronic. Weight patient today. D/W nursing. - Will f/u with patient as an OP. 6, RA/Polyarthropathy: Chronic problem followed by rheumatology. Takes MTX on each . He has had his dose for 05/10/20. On steroid tx now. He feels better than he has in a while. Improved status per patient report. 7. Diet: DASH 8. DVT prophy: Prophylaxis not recommended, treatment dosing as described in #2 above. - Treating DVT/PE w/ Lovenox 150mg subcut BID 9. Activity: Up w/ assist. Fall precautions. 10. Disposition: 50 yr old male COVID + considered severe as on supplemental O2 due to <94% on RA, history of Rheum arthritis on MTX, DVT and PE identified on CTA 05/10/20. Hospital Day 5. Remdesivir day 4/5. Dexamethasone day 11/06. Admitted inpatient for COVID 19 with Dyspnea and silent hypoxia. CTA ordered, poor imaging quality 05/09. Repeated on 05/10 and PE was present. Tolerating PO for liquids and meals. IV saline locked 05/12/20 as tolerating liquids well. Continued O2 to titrate to >90 <98. D/C planning ongoing. Plan for d/c home on 05/14/20 after dose 5/5 of remdesivir. >35 minutes spent on this rounding. Known + confirmed COVID-19 with underlying medical problems that may put him at above average risks for this virus. We discussed his plan of care, discussed his discharge. Medical inpatient admission remains medically necessary to receive IV medication in a person with highly contagious disease. Isolation required. Cannot leave/return for outpatient care, home health unable to see patient due to COVID-19 status. Thus, he must remain as inpatient status.
[2020-05-13] MEDS: CLARITIN PO SCH (08:51)
[2020-05-13] MEDS: COREG PO SCH ×2 (08:51→17:07)
[2020-05-13] MEDS: DECADRON IVP SCH (08:51)
[2020-05-13] MEDS: LOVENOX SUBCUT SCH ×2 (08:52→20:13)
[2020-05-13 10:06] LABS: PROTHROMBIN TIME 12.9 SEC (9.3-11.0)
[2020-05-13] MEDS: REMDESIVIR 100 MG in SODIUM CHLORIDE 80 ML IV SCH (10:49)
[2020-05-13] MEDS: LIPITOR PO SCH (20:13)
[2020-05-14] MEDS: VENTOLIN HFA (PER PUFF-WITH SPACER) IH PRN (05:00)
[2020-05-14] MEDS: ATROVENT HFA INHALER (PER PUFF-WITH SPACER) IH SCH (05:00)
[2020-05-14] MEDS: PRILOSEC PO SCH (05:39)
[2020-05-14 06:24] VITALS: TEMP 97.5
--- NOTE | 2020-05-14 07:13 | PCM.DC ---
Final Diagnosis: 1. COVID 19 considered severe <94% on RA requiring supplemental O2. - S/P remdesivir 200mg day 1 then 100mg x 4 days for total of 5 doses - S/P Dexamethasone IV 6 mg daily x 5 doses 2. FARRIS: Patient reports resolved 3. Left Leg DVT and new PE on CTA 05/10/20 - Lovenox during hospital stay 150 mg subcutaneous daily - Eliquis 5mg BID (DOSE #! to start evening of 05/14/20). - Stop Xarelto do not use in combo with eliquis - Stopped Naproxen due to use of anticoag. 4. Anemia: Chronic/stable - CBC in 1-2 weeks to monitor. 5. Rheumatoid Arthritis: On MTX 7.5mg q . Continue. - TRIM INSTALLER printed. - Percocet Rx sent to pharmacy. - UDS as outpatient. 6. Chronic anticoag: Patient aware of risks and benefits of using [Eliquis]. I informed the patient of the risks associated with use of anticoagulation including but not limited to catastrophic and lifethreatening intracranial, visceral, and gastrointestinal bleeding. I discussed alternatives (Vit K inhibitors, direct thrombin inhibitors and factor Xa inhibitors) including oral Coumadin with initial LMWH and need for repeat/regular INR, oral Savaysa (Xa inhibitor) with initial LMWH x 5 days, Oral Pradaxa (thrombin inhibitor) with initial LMWH and Xarelto/Eliquis which do not require any injections. Discussed these meds have other names such as Warfarin, rivaroxaban, apixaban or edoxaban. The risks and interactions of each medication were discussed independently and compared to other anticoagulants. We reviewed proximal vs Deep DVT, PE, atrial fibrillation and discussed benefits/reasons for one over another. We discussed provoked vs unprovoked DVT and discussed some common causes of DVT. Discussed DDX today as listed. Discussed when to go to ER, caution for falls, caution for bleeding. I discussed the risks of bleeding as well as availability of reversal for each anticoagulant. After discussion of the above the patient has chosen to initiate anticoagulation. Please see order below. I am discussing/providing Rx for the anticoagulant in this patient due to efficacy and patient preference. The patient has been briefed on the risks and benefits of the agents and has voiced understanding and would like to proceed with anticoagulation. They are aware that the minimal tx course will be 3 months. If unprovoked or recurrent DVT this could be lifetime. Any tobacco should be stopped. If worsening, if fall, if injury would recommend urgent evaluation by ER. - No NSAIDS 7. BMI 42.9: Weight 316 (up from 315). Chronic peripheral edema. Chronic obesity. - F/U and discuss as an OP. 8. Suspect JENNIFFER: - Recommended OP evaluation for JENNIFFER. (1) COVID-19: Status: Acute Code(s): U07.1 - COVID-19 SNOMED Code(s): 360458522 (2) Dyspnea on exertion: Status: Acute Code(s): R06.00 - Dyspnea, unspecified SNOMED Code(s): 61440369 (3) Left leg DVT: Status: Acute Code(s): I82.402 - Acute embolism and thrombosis of unspecified deep veins of left lower extremity SNOMED Code(s): 777336327 (4) Anemia: Status: Acute Code(s): D64.9 - Anemia, unspecified SNOMED Code(s): 748737730 (5) Rheumatoid arthritis: Status: Acute Code(s): M06.9 - Rheumatoid arthritis, unspecified SNOMED Code(s): 50012102 (6) Chronic anticoagulation: Status: Acute Code(s): Z79.01 - custodial (current) use of anticoagulants SNOMED Code(s): 183056113 (7) Peripheral edema: Status: Acute Code(s): R60.9 - Edema, unspecified SNOMED Code(s): 037964197 (8) BMI 40.0-44.9, adult: Status: Acute Code(s): Z68.41 - Body mass index [BMI]40.0-44.9, adult SNOMED Code(s): 710427276 Reason for Hospitalization: COVID +, FARRIS, +Pulm Embolism, known DVT already on anticoag Xarelto 15mg BID. Prognosis at Discharge: Good. Improved/stable. Patient declined home o2. Condition at Discharge: Good. Improved/stable. Patient declined home o2. Completed 5/5 doses of dexamethasone 6mg. Completed 5/5 doses of remdesivir. O2 during hospital stay. As noted patient did not want home o2. Medications at Discharge: Ambulatory Orders Medication Instructions Recorded multivitamin [Daily Multiple] 1 ea PO DAILY 10/03/18 loratadine [Claritin Liqui-Gel] 10 mg PO DAILY 11/08/18 triamcinolone acetonide 0.5 % 1 applic TP TID #454 gm 07/26/19 topical cream clotrimazole 1 % topical cream 1 applic TP BID #90 gm 08/08/19 folic acid 1 mg tablet 1 mg PO QDAY 08/08/19 hydrocortisone 2.5 % topical 1 applic TP BID #453.6 gm 08/08/19 ointment acetaminophen 650 mg 650 mg PO Q8H PRN 08/31/19 tablet,extended release diclofenac sodium 1 % topical gel 2 gm TP QID #100 gm 02/09/20 methotrexate sodium 2.5 mg tablet 2.5 mg PO QWEEK 03/01/20 pantoprazole 20 mg tablet,delayed 20 mg PO QDAY #30 tab 03/14/20 release albuterol sulfate 90 mcg/actuation 2 puff IH Q6H PRN #18 gm 04/03/20 aerosol inhaler ipratropium bromide 17 1 puff IH QID #12.9 gm 04/03/20 mcg/actuation HFA aerosol inhaler oxycodone-acetaminophen 7.5 mg-325 1 tab PO TID PRN #21 tab 04/15/20 mg tablet atorvastatin 20 mg PO BEDTIME 05/10/20 carvedilol 3.125 mg PO BIDWM 05/10/20 apixaban [Eliquis] 5 mg PO BID #60 tab 05/14/20 Oxycodone Rx sent to pharmacy. 1 Po BID #60. Lab/Diagnostics: Laboratory Tests 05/09/20 05/09/20 05/09/20 14:25 14:25 14:39 WBC 7.99 RBC 3.70 L Hgb 11.3 L Hct 33.7 L MCV 91.1 MCH 30.5 MCHC 33.5 RDW Coeff of Shivam 14.8 Plt Count 449 H Immature Gran % (Auto) 0.4 Neut % (Auto) 58.7 Lymph % (Auto) 27.0 Calvert % (Auto) 10.3 H Eos % (Auto) 2.8 Baso % (Auto) 0.8 Neut # (Auto) 4.7 Lymph # (Auto) 2.2 Calvert # (Auto) 0.8 Eos # (Auto) 0.2 Baso # (Auto) 0.1 Immature Gran # (Auto) 0.0 PT INR Puncture Site O2 Saturation ABG pH ABG pCO2 ABG pO2 ABG HCO3 ABG Total CO2 ABG Base Excess Christian Test O2 Delivery Device Oxygen Liter Flow FiO2 % Sodium 137.7 Potassium 3.94 Chloride 104.4 Carbon Dioxide 25.3 Anion Gap 11.94 BUN 10.3 Creatinine 0.89 Estimated GFR (MDRD) 90.00 BUN/Creatinine Ratio 11.57 Glucose 85.6 Calcium 9.09 Total Bilirubin 1.22 AST 30.4 ALT 19.8 Alkaline Phosphatase 89.9 Total Protein 7.66 Albumin 3.58 Globulin 4.08 Albumin/Globulin Ratio 0.87 Influ A Molecular Assay Negative by naat Influ B Molecular Assay Negative by naat 05/09/20 05/10/20 05/10/20 22:12 06:05 06:05 WBC 5.68 RBC 3.84 L Hgb 11.6 L Hct 35.2 L MCV 91.7 MCH 30.2 MCHC 33.0 RDW Coeff of Shivam 15.0 H Plt Count 402 Immature Gran % (Auto) 0.4 Neut % (Auto) 85.3 H Lymph % (Auto) 11.4 Calvert % (Auto) 1.8 Eos % (Auto) 0.2 Baso % (Auto) 0.9 Neut # (Auto) 4.9 Lymph # (Auto) 0.7 Calvert # (Auto) 0.1 L Eos # (Auto) 0.0 Baso # (Auto) 0.1 Immature Gran # (Auto) 0.0 PT 12.6 H INR 1.31 Puncture Site Rrad O2 Saturation 95.0 ABG pH 7.45 ABG pCO2 37.0 ABG pO2 72.0 L ABG HCO3 25.7 ABG Total CO2 26.8 ABG Base Excess 1.7 Christian Test + O2 Delivery Device Oxygen Liter Flow FiO2 % 21.0 Sodium Potassium Chloride Carbon Dioxide Anion Gap BUN Creatinine Estimated GFR (MDRD) BUN/Creatinine Ratio Glucose Calcium Total Bilirubin AST ALT Alkaline Phosphatase Total Protein Albumin Globulin Albumin/Globulin Ratio Influ A Molecular Assay Influ B Molecular Assay 05/10/20 05/10/20 05/11/20 06:05 07:06 05:50 WBC 10.13 RBC 3.56 L Hgb 10.8 L Hct 32.4 L MCV 91.0 MCH 30.3 MCHC 33.3 RDW Coeff of Shivam 14.7 Plt Count 413 Immature Gran % (Auto) 0.4 Neut % (Auto) 83.1 H Lymph % (Auto) 13.1 Calvert % (Auto) 3.3 Eos % (Auto) 0.0 Baso % (Auto) 0.1 Neut # (Auto) 8.4 H Lymph # (Auto) 1.3 Calvert # (Auto) 0.3 L Eos # (Auto) 0.0 Baso # (Auto) 0.0 Immature Gran # (Auto) 0.0 PT INR Puncture Site Rrad O2 Saturation 95.5 ABG pH 7.46 H ABG pCO2 36.0 ABG pO2 74.0 L ABG HCO3 25.6 ABG Total CO2 26.7 ABG Base Excess 1.8 Christian Test + O2 Delivery Device Nc Oxygen Liter Flow 2.00 FiO2 % Sodium 138.3 Potassium 4.37 Chloride 105.9 Carbon Dioxide 25.7 Anion Gap 11.07 BUN 11.1 Creatinine 0.89 Estimated GFR (MDRD) 90.00 BUN/Creatinine Ratio 12.47 Glucose 122.2 H Calcium 8.97 Total Bilirubin 0.88 AST 34.7 ALT 20.6 Alkaline Phosphatase 91.4 Total Protein 7.72 Albumin 3.62 Globulin 4.10 Albumin/Globulin Ratio 0.88 Influ A Molecular Assay Influ B Molecular Assay 05/11/20 05/11/20 05/12/20 05:50 07:02 05:40 WBC RBC Hgb Hct MCV MCH MCHC RDW Coeff of Shivam Plt Count Immature Gran % (Auto) Neut % (Auto) Lymph % (Auto) Calvert % (Auto) Eos % (Auto) Baso % (Auto) Neut # (Auto) Lymph # (Auto) Calvert # (Auto) Eos # (Auto) Baso # (Auto) Immature Gran # (Auto) PT 12.0 H 12.7 H INR 1.23 1.32 Puncture Site O2 Saturation ABG pH ABG pCO2 ABG pO2 ABG HCO3 ABG Total CO2 ABG Base Excess Christian Test O2 Delivery Device Oxygen Liter Flow FiO2 % Sodium 139.9 Potassium 3.96 Chloride 108.9 H Carbon Dioxide 23.1 Anion Gap 11.86 BUN 15.1 Creatinine 0.80 Estimated GFR (MDRD) 102.00 BUN/Creatinine Ratio 18.87 Glucose 124.8 H Calcium 8.73 Total Bilirubin 0.49 AST 29.5 ALT 20.7 Alkaline Phosphatase 84.6 Total Protein 7.36 Albumin 3.42 L Globulin 3.94 Albumin/Globulin Ratio 0.86 Influ A Molecular Assay Influ B Molecular Assay 05/12/20 05/12/20 05/13/20 05:40 05:40 04:50 WBC 9.90 10.47 H RBC 3.45 L 3.55 L Hgb 10.4 L 10.7 L Hct 31.8 L 33.0 L MCV 92.2 93.0 MCH 30.1 30.1 MCHC 32.7 32.4 RDW Coeff of Shivam 15.0 H 15.0 H Plt Count 392 410 Immature Gran % (Auto) 0.6 1.6 Neut % (Auto) 70.5 62.5 Lymph % (Auto) 24.3 30.7 Calvert % (Auto) 4.4 4.7 Eos % (Auto) 0.0 0.1 Baso % (Auto) 0.2 0.4 Neut # (Auto) 7.0 H 6.6 Lymph # (Auto) 2.4 3.2 Calvert # (Auto) 0.4 0.5 Eos # (Auto) 0.0 0.0 Baso # (Auto) 0.0 0.0 Immature Gran # (Auto) 0.1 0.2 PT INR Puncture Site O2 Saturation ABG pH ABG pCO2 ABG pO2 ABG HCO3 ABG Total CO2 ABG Base Excess Christian Test O2 Delivery Device Oxygen Liter Flow FiO2 % Sodium 139.7 Potassium 3.98 Chloride 109.8 H Carbon Dioxide 23.9 Anion Gap 9.98 BUN 17.7 Creatinine 0.86 Estimated GFR (MDRD) 94.00 BUN/Creatinine Ratio 20.58 Glucose 92.9 Calcium 8.47 Total Bilirubin 0.35 AST 34.6 ALT 22.3 Alkaline Phosphatase 70.6 Total Protein 6.97 Albumin 3.21 L Globulin 3.76 Albumin/Globulin Ratio 0.85 Influ A Molecular Assay Influ B Molecular Assay 05/13/20 05/13/20 04:50 09:35 WBC RBC Hgb Hct MCV MCH MCHC RDW Coeff of Shivam Plt Count Immature Gran % (Auto) Neut % (Auto) Lymph % (Auto) Calvert % (Auto) Eos % (Auto) Baso % (Auto) Neut # (Auto) Lymph # (Auto) Calvert # (Auto) Eos # (Auto) Baso # (Auto) Immature Gran # (Auto) PT 12.9 H INR 1.34 Puncture Site O2 Saturation ABG pH ABG pCO2 ABG pO2 ABG HCO3 ABG Total CO2 ABG Base Excess Christian Test O2 Delivery Device Oxygen Liter Flow FiO2 % Sodium 139.8 Potassium 4.18 Chloride 107.6 H Carbon Dioxide 27.0 Anion Gap 9.38 BUN 16.5 Creatinine 0.86 Estimated GFR (MDRD) 94.00 BUN/Creatinine Ratio 19.18 Glucose 84.7 Calcium 8.40 Total Bilirubin 0.40 AST 53.3 ALT 41.6 Alkaline Phosphatase 71.7 Total Protein 6.95 Albumin 3.33 L Globulin 3.62 Albumin/Globulin Ratio 0.91 Influ A Molecular Assay Influ B Molecular Assay COVID 19 + on 05/08/20. CT Chest 05/09/20: Impression: 1. The pulmonary arteries are not well opacified due to bolus timing. There is no large central pulmonary embolism. Questionable bilateral lower lobe pulmonary emboli. Recommend VQ scan or repeat CTA of the chest. 2. Mild cardiomegaly. 3. Subtle bilateral ground-glass changes could be related to poor inspiratory effort or early edema. There is no consolidated pneumonia. 4. Splenomegaly. Critical results communicated to Dr. Rosen at 7:26 p.m. 05/09/2020 CT Chest 05/10/20: IMPRESSION: 1. Left lower lobar and right lower lobe segmental artery pulmonary emboli. 2. Low lung volumes with mild passive atelectasis bilaterally. No consolidation. 3. Mild cardiomegaly. 4. Splenomegaly. Impression #1 discussed with Muna Sepulveda at 2:38 p.m.on 05/10/2020. Education Provided to Patient and Family: 1. Anticoag Elquis. 2. handout Covid 19 3. Quarantine for patient through 05/18 to be released on 05/19 4. Family to start quarantine on 05/19 and extend 14 days beyond that. 5. F/U GATE GUARD Glez on 05/21 at 11 am. 6. Remdesivir education. Follow-ups: 1. F/U G[facility] GUARD Glez on 05/21 at 11 am. 2. Keep appt with rheumatology as scheduled. Discharge Disposition: Home Hospital Course: 05/09/20 Day of ADMIT: 50 year old CM presented to outpatient registration of the hospital 05/09/[address] PE protocol after visit yesterday with BART Glez for worsening FARRIS, cough. Note from 05/08/20 reviewed with the patient. Weight 315, down from 319 last OV. BP 135/76, RR 28, pulse 97 97% on RA, temp 99.2. Noted freq cough no fever x 4 days. Robitussin not helping at all. Appetite down, insomnia, extremely SOA w/ exertion, using cane to walk in left hand. Swelling in ankles improving. History of PE with admission to 03/2020, DVT LLE. He told BART Benedict his SOA was similar to when he had his PE recently. Compliant with anticoag meds. BART Glez ordered CXR, ddimer, COVID testing, if worsening recommended to go to ED. She came to me late yesterday pm with elevated Ddimer. I noted ddimer is incredibly low yield test if patient has known DVT. BNP was okay. CXR no active/acute process. PFSH significant for osteoarthritis, rheumatoid arthritis polyarthralgia on methotrexate every , known DVT LLE 04/12/20 US doppler confirmed on Xarelto 15mg BID, due to change soon to 20mg, history of PE, history of dvt left axillary vein, history of pneumonia. Never smoker, chronic poor dentition. Patient presented to outpatient registration today for CT PE protocol and subsequently was found to be COVID +. I was notified of this status, went to patient registration and had patient weight in his car for direct admission. BART Glez told me he was very SOA, sick appearing and was worried about him. We directly admitted him to hospital into SCU 1. 4 day history of symptoms URI cough without sputum production, nasal pressure, some loss of taste/smell but he notes the symptoms were not bad. He reports significant SOA, FARRIS, difficulty laying supine. He has been monitoring BP at home and he notes it has been doing well, at goal. No reported sick contacts, no recent travel. "I stay in the town, I stay in the vehicle and my goes in and does all of the things that we need." As far as he knows she is healthy, asymptomatic and not having any issues. Chronic rheumatoid arthritis rated at 4-5/10. He notes overall pain is better with resting. Breathing is better with sitting/resting. Chills, body aches, no appetite. He has not had anything to eat/drink since last night. LAGUERRE generalized 4-5/10 worse with cough, worse with lying supine. He is on percocet 7.5 TID. We will continue to use these for pain relief. Aware of R/B/a to opiates and he reports no abuse of these. Chronic peripheral edema, 2+ edema of feet, 1+ to knees bilaterally. He notes cough has worsened over last 4 days. He is not coughing up sputum, he notes SOA worse with cough paroxysms. He has been tested for COVID already and this returned positive via PCR. I walked into room SCU 1 1330 today full airborn PPE and discussed case with patient. I swabbed him for influenza via nasal swab. Cough is dry, attempted to collect sputum, unable as not producing sputum. Last BM this am, normal, no blood, no vomiting/constipation. He has thickening skin along bilateral feet, no e/o communicable process. He has marito ebruising to bilateral buttock. No groin rash, no sacral decub, no other rash. He feels weight is stable. He is able to talk in 3-5 word segments. Temp 1320 was 99.4, RR 19-22, pulse 88, BP 121/82. NO reported tylenol today. No percocet today. He has not been on prednisone since early 04/2020. The patient has had his flu shot, he has had his pneumonia vaccine. I had patient stand up and walk a few steps in place and he did drop to 88%. We discussed O2 NC to keep 92-98%. In addition to COVID-19 we are concerned that he has a PE. The patient has chest pain w/ deep inspiration. subjective fever, no vision changes, mild reported loss of taste/smell, 4 day URI symptoms, cough/congestion/wheezing/SOA, + CP, reported fatigue, no abd pain, +Nausea, no emesis/diarrhea, intermittent constipation, no changes in urination/stooling, chronic MSK pain as above, no recent injuries/Falls and listed above. 05/10/20 Day 2: 50 yr old CM HD #2 COVID +, FARRIS, hypoxia, Orthopnea, chronic anemia, Rheum arthritis on MTX , known LLE DVT/history of PE on Lovenox now 140mg BID for tx dosing as CTA suspect new PE. Now considered Severe COVID due to <94% on RA, requiring supplemental o2. He was somewhat non compliant with xarelto as OP but noted he has been taking recently. We stopped this. He required O2 overnight due to desaturations that occurred. 2L NC started. Labs this am showed WBC normal at 5.68, hgb stable at 11.6 but chronic normocytic anemia. RDW is elevated. Neutrophils 85.3 may be steroidal demargination as he should have received dex 6 IV last night. PT this am is 12.6. We will monitor this due to use of remdesivir. CMP today showed normal sodium 13.3, K+ 4.37, cl 105.9, cr 0.89ds, glucose mildly elevated at 122.2. remainder within NL. Flu was negative. ABG last night 2211 showed pH 7.45 normal .pco2 37, hco3 25.7, Po2 72. Personally interpreted data suggests normal ABG, normal anion gap. Patient appears to have silent hypoxia. Aa gradient calculated to be 33.5 mmhg. Expected gradient of 16.8mmhg based on age. This signifies a ventilation-perfusion mismatch vs intrapulmonary shunting. Repeat ABG w/ supplemental oxygen today to evaluate ventilation-perfusion mismatch better. If the Pao2 does not improve, this signifies higher likelihood patient will require ventilator assistance. Review of overnight nursing notes and telemetry were done this am. Patient remained in SR throughout the night. Note from SEDA Preciado at 1933 with my information about increasing lovenox reviewed. I+O at 2200 05/09 200 in 350 out. 2218 SPO2 88-90. No distress noted. O2 drops when sleeping increased to 94-95. If awake >95%. 2L applied. RR 18-20. O2 maintained at night with supplemental 2L NC. Discussed case with am nursing. 0641 progress note did well through night. No C/O pain or SOA to the nursing this am. VSS normal in am. Feeling better with the oxygen. CrCl 144 adjusted for obesity. 05/11/20 Day3: 50 yr old CM HD #3 COVID +, FARRIS, hypoxia, Orthopnea, chronic anemia, Rheum arthritis on MTX , known LLE DVT/history of PE on Lovenox now 150mg BID for tx dosing as CTA found PE. Uncertain if this is truly new or due to early non compliance and resolving. Vitals overnight BP 102/66, pulse 76, rr 20, temp 97.7 and remains afebrile. O2 sat 95%. The patient is now on remdesivir 200mg yesterday, 100mg daily x 4 more days. He is receiving dexamethasone 6mg daily x 5 days as well. I+O showed 3504 ml input, 1800ml output for a balance of +1704. Labs this am showed CBC: WBC 10.13, hgb 10.8 down from 11.6. , plt 413 Predominate neutrophils likely secondary to steroidal demargination. ABG yesterday remained normal to my interpretation pH 7.46, pco2 36 and po2 74. They did this on 2L NS which did increase PO2 from 70 to 74. CMP this am showed sodium 139.9, K+ 3.96. Glucose 124.8. Again on steroids. Likely effect of that process. CT chest 05/10/20 IMPRESSION: 1. Left lower lobar and right lower lobe segmental artery pulmonary emboli. 2. Low lung volumes with mild passive atelectasis bilaterally. No consolidation. 3. Mild cardiomegaly. 4. Splenomegaly. Again, it is not certain if these are new or if they are historical. Discussed care with am nurse, reviewed overnight telemetry, reviewed imaging, reviewed labs on the floor this am starting at 0615. Remains SOA with up and active. Quickly resolves with rest. O2 2L maintained at 2L Lung sounds diminished to nursing as well as to my assessment. Remains NSR. Bilateral LE edema unchanged remains 2+ to ankles and 1+ to knees. Cane for ambulation as previously. Nursing documentation congruent with my assessment as well. Reviewed pharmacy consult from 05/10/20. D/w [facility] Pharmacist personally yesterday the use of remdesivir. The patient will get this x 4 days. PT to be checked daily. AST/ALT are okay. CrCl is good. At this time, we will continue to monitor for fluid overload, we will continue to provide remdesivir. As he was not sure about the onset of his symptoms, I would recommend making the 10 day isolation period from 05/08/20. Today is day 3 of isolation. Day 2 of remdesivir. 05/11/20 Day 4: 50 yr old CM HD #4 COVID +, FARRIS, hypoxia, Orthopnea, chronic anemia, Rheum arthritis on MTX , known LLE DVT/history of PE on Lovenox now 150mg BID for tx dosing as CTA suspect new PE. Now considered Severe COVID due to <94% on RA, requiring supplemental o2. On remdesivir and getting dexamethasone 6mg IV daily as per guidelines. ABG yesterday improved Po2 some compared to previous day. Labs this am showed hemoglobin have dropped from 10.8 to 10.4. WBC stable at 9.90. Plt 392. CMP WNLL. Sodium 139.7, K+ 3.98. cl 109.8. Cr 0.86. Glucose 92.9. Calcium 8.47. AST 34.6. ALT 22.3. albumin 3.21. PT stable at 12.7. Monitored daily due to remdesivir. No new imaging. Vitals overnight reviewed. Now maintaining o2 at >95% but mostly <98% on 2L NC. BP stable throughout the night. Remains afebrile. IV NS 120ml/hour overnight while NPO. I am going to stop this now that he is positive fluid. He has had 2+ Pitting edema to bilateral ankles and 1+ to knee. He is voiding well, urinating, BM x1. Tolerating enough liquids during day to not need the overnight fluids. I will saline lock IV today, d/c fluids. Eating well per nursing. Telemetry overnight has shown that the patient is doing well, remaining in NSR. Discussed care with nursing, reviewed pharmacy notation. Remdesivir given 1050 yesterday am. Showered x 1. VS 94% when standing, better than 88% at admit. Telemetry showed an SPO2 of 92 at 0100 this am. At discharge will recommend referral to sleep medicine for JENNIFFER evaluation. Am note [id number] from Angela Powell reviewed, appreciate input. Patient is doing very well and improving. SOA is better. He notes less difficulty with wind. Joint pain is feeling better due to steroids. 05/13/20 Day 5: 50 yr old CM HD #5 COVID +, FARRIS, hypoxia, Orthopnea, chronic anemia, Rheum arthritis on MTX , known LLE DVT/history of PE on Lovenox now 150mg BID for tx dosing as CTA suspect new PE. Considered Severe COVID due to <94% on RA, requiring supplemental o2. On remdesivir and getting dexamethasone 6mg IV daily as per guidelines. Today is day 4/5 for remdesivir. Today will be day 5/5 for dexamethasone. I plan for patient to be d/c tomorrow. He does not know when his symptoms started and thus his day 1 of quarantine is 05/08/20 and last date will be 05/18 with release on 05/19/20. I have discussed care with patient again this am. We have discussed his family requiring isolation/quarantine from 05/19-06/02 as he will return home. It is from the last date of known contact. He understood. Labs this am showed mild white count elevation at 10.47. Hgb increased from 10.4 to 10.7 and plt remain stable at 410. Daily PT while on remdesivir showed pt 12.7 and INR 1.32, similar to 05/10/20. Chemistry panel this am showed normal sodium 139.8, K+ 4.189, Normal cr 0.86 and stable. Remainder to include AST (53.3, alt 41.6 remain) stable. Albumin remains mildly low at 3.33. Due to increased PO intake and tolerating well, we have saline locked his IV. I+) over last 24 hours showed 2340ml in and 1900 out with balance of 440ml. This is more neutral than last few days. He is voiding and not all are recorded. No additional imaging. Telemetry monitored. He has had some bradycardia. Per nursing ad claudia movement. No falls. He is now tolerating 98% on RA. HE will need to have outpatient sleep study for JENNIFFER. Dry cough persists, no sputum production. Remains on COVID-19 isolation at this time. Overnnight HR dropped to 56. Vitals reviewed. Remains afebrile. Dropped to 93% at 2130. Else remained >95. He is getting remdesivir. Due to isolation protocol, he cannot leave/return to get outpatient infusion due to pandemic spread. He has had to stay as an inpatient due to IV medication that is needed daily due to the COVID-19. Oral options are not available. Patient required admission and continues to require admission through tomorrow 05/14/20 which will be his discharge date after last dose of remdesivir. Pharmacy note reviewed, no changes. 05/14/20 Day 6: DAY OF DISCHARGE Overnight nursing notes show that patient is ready to go home. Telemetry Sinus ankur overnight. He is afebrile throughout entire stay. FARRIS is better, O2 is 98% overnight on 2L, he decided to stop wearing this and with slightly reclined posture maintained oxygen saturation. BP stable, RR stable now <18. No long tachypneic. Eating entire meal. Uout 2000ml yesterday and did great overnight. Orderd PT/INR this am for remdesivir data. Pending. Would get CBC/CMP in 1 week to make sure that the patient is still doing okay. Plan this am discharge after dose of remdesivir. He had dose 5/5 of dexamethasone last night. AM nursing notes reviewed. No changes from previous days. Plan d/c home today. Follow up with [facility] Glez 05/21/20 11 am. CBC/CMP recommended at that time. REVIEW OF SYMPTOMS: (Positives bolded) General: weight loss, fever, chills, night sweats, fatigue, appetite loss (improved) HEENT: blurry vision, eye pain, eye discharge, dry eyes, decreased vision, sore throat tinnitus, bloody nose, hearing loss, sinus pain/pressure, ear pain/pressure. Respiratory: shortness of breath (RESOLVED PER PATIENT), cough, hemoptysis, wheezing, pleurisy, Cardiovascular: chest pain (RESOLVED), PND, palpitation, edema, orthopnea, syncope, swelling of extremities Gastro: Nausea, vomiting, diarrhea, hematemesis, abdominal pain, constipation Genito: hematuria, dysuria, glycosuria, hesitancy, frequency, incontinence Musckelo: Arthralgia, myalgia, muscle weakness, joint swelling, NSAID use Skin: rash, pruritis, sores, nail changes, skin thickening feet (Chronic), change in wart/mole, itching, rash, new lesions, pruritus, nail changes Neuro: Migraine, numbness, ataxia, tremor, vertigo, weakness (chronic), memory loss, Irritability, dizziness Ambulates with cane. Endocrine: excessive thirst, polyuria, cold intolerance, heat intolerance, goiter Psychiatric: depression, anxiety, anti-depressants, alcohol abuse, drug abuse, insomnia, change in sleep pattern and mood changes Heme/lymph: easy bruising on anticoag, bleeding gums, blood clots, swollen glands, lymphedema, Allergic/immune: allergic rhinitis, hay fever, asthma, hives Day of D/C Physical Examination: Vital Signs - 24 hr 05/13/20 08:00 05/13/20 13:47 05/13/20 19:34 Temperature 98.3 F Pulse Rate 80 Respiratory Rate 20 21 16 Blood Pressure 138/91 H O2 Sat by Pulse Oximetry 94 L 05/13/20 21:10 05/14/20 06:00 Temperature 98.1 F 97.5 F L Pulse Rate 55 L 60 Respiratory Rate 20 17 Blood Pressure 125/84 127/88 O2 Sat by Pulse Oximetry 95 98 Appearance-RR normal now. No respiratory distress now. He is calm, talking in full sentences. Consistent with stated age. "I am ready to go home" Orientation- Oriented x 3, alert Build and Nutrition-OBESE male BMI 42.7. General- Patient is pleasant and cooperative with the interview and exam. Integumentary: General- Skin thickening and hyperpigmented changes between toes and lateral feet bilaterally. Unchanged He has 2+ Pitting edema bilateral LE to the ankle, then 1+ to the knee. He has no e/o skin breakdown. No new ecchymoses, no e/o bleeding. superficial varicosities. Bilateral legs decreased hair to the knees. Pulses 1+ symmetrical. He has no open ulcers. No groin/sacral rashes, no rash to abdomen/chest. No rash/ulcers or lesions except as noted. Palpation- Normal skin moisture/turgor. Skin is warm to touch, appropriate. Capillary refill is normal bilateral Upper and lower extremity. ENMT: Nose and sinus- No sinus tenderness along frontal/maxillary region. External appearance normal and midline. Nares- bilateral quiet airflow, no discharge. Nasal mucosa- No bleeding noted and no ulcerations observed. [place], moist. Turbinates non boggy. Lips- normal color, moist without cracks/lesions Oral Cavity/Palate- hard/soft palate intact without lesions, oral mucosa pink and moist. Dentition assessed [missing teeth poor dentition] and discussed appropriate oral care. Tongue normal midline. Oropharynx- no pharyngeal erythema, Poor dentition. Uvula midline. No post nasal drip. No exudate. Salivary glands- Non tender to palpation CHEST/LUNG: Inspection- symmetric chest wall no pectus deformity. Now normal effort, talking in full sentences, no distress, no use of accessory muscles. Palpation- nontender sternum, ribline. No abnormal pulsations. Auscultation- Breath sounds diminished/coarse throughout all lung marvin this appears stable/chronic. Lungs w/ decreased aeration. Adventitious sounds- NO wheezes, No crackling distally, + rhonchi. Deeper inspiration. Talking in full sentences. CARDIOVASCULAR: Carotid artery- normal, no bruits or abnormal pulsations. Jugular vein- no pulsations. Palpation/Percussion- Normal PMI, no palpable thrill Auscultation- Regular rate and rhythm. No murmur noted in sitting, supine positions. Extremities- no digital clubbing, cyanosis, increased warmth. + Edema as noted above. No edema in bilateral UE. ABDOMEN: Inspection- normal and no visible pulsations. Normal contour. Au scultation- Bowel sounds normal, no abdominal bruits. Palpation/Percussion- soft, non-tender, no rebound tenderness, no rigidity (guarding), no jar tenderness, no masses. Liver- habitus limited. no hepatomegaly, Spleen no splenomegaly, Peripheral Vascular: Upper extremity Left- Normal temperature with pink nailbeds and no ulcerations. Upper extremity Right- Normal temperature with pink nailbeds and no ulcerations. Lower extremity- Normal temperature with pink nailbeds and no ulcerations. Loss of hair bilateral LE shins. Venous stasis changes. DP pulses 2+ bilaterally. Normal capillary refill. Edema- edema 2+ to ankle 1+ to knee. Bilateral. Unchanged. Feet remain lichenified, chronically. No new bruising. Musculoskeletal: Generalized-edema of bilateral LEextremities, no cyanosis, neurovascularly intact all four extremities. no hip pain reported. Neurological: General- Moves all 4 extremities symmetrically. Symmetrical face and body posture. Strength- 5/5 bilateral UE and LE. Soft touch- intact bilateral UE and LE. Temperature sensation- intact bilateral UE and LE.. Ambulates with cane, wide based. Neuropsych: Oriented- Person, place, time. (AAOx3), Mood/affect- normal and congruent. Able to articulate reasonably well. Low education. Speech-Normal speech nearly fluent. Discussed election. He was able to keep up with current events. Plan: 1. D/C Home today. 2. Patient did not want O2. Declined. 3. Resume home meds except naproxen and xarelto. STOP XARELTO START ELIQUIS twice daily 5mg. STOP NAPROXEN Oxycodone BID PRN pain 4. Change xarelto to eliquis. New Rx sent to pharamcyR/B/A to meds d/w patient, SE reviewed, handout offered regarding medications listed. 5. Would f/u after 10 day isolation period in clinic. (AFTER 05/18/20). 6. Office visit with [facility] ramon 05/21/20 at11:00. 7. Would work on setting patient up for outpatient sleep study 8 Time of discharge this am >30 minutes. Started 6:55 and ended 7:35. (Review overnight data, don/doff PPE, discuss with nursing, talked with pharmacy, educa tion).
[2020-05-14 07:41] LABS: ALANINE AMINOTRANSFERASE 57.2 U/L (0-50); ALBUMIN 3.4 g/dL (3.5-5.0); ALKALINE PHOSPHATASE 72.2 U/L (38-126); ASPARTATE AMINO TRANSFERASE 63.4 U/L (17-59); BILIRUBIN,TOTAL 0.43 mg/dL (0.2-1.3); BLOOD UREA NITROGEN 16.8 mg/dL (9-20); CALCIUM 8.61 mg/dL (8.4-10.2); CARBON DIOXIDE 28.7 mmol/L (22-30.0); CHLORIDE 107.3 mmol/L (98-107); CREATININE 0.9 mg/dL (0.60-1.10); POTASSIUM 3.93 mmol/L (3.5-5.1); SODIUM 139.8 mmol/L (134.5-145); TOTAL PROTEIN 6.95 g/dL (6.3-8.2)
[2020-05-14 07:51] LABS: PROTHROMBIN TIME 12.8 SEC (9.3-11.0)
[2020-05-14] MEDS: COREG PO SCH (08:45)
[2020-05-14] MEDS: REMDESIVIR 100 MG in SODIUM CHLORIDE 80 ML IV SCH (08:45)
[2020-05-14] MEDS: CLARITIN PO SCH (08:45)
[2020-05-14] MEDS: DECADRON IVP SCH (08:45)
[2020-05-14] MEDS: LOVENOX SUBCUT SCH (08:45)
[2020-05-14 12:45] VITALS: BP 126/80
== END 2020-05-14 10:50 | disposition home or self-care (01) | DRG 204 ==
LOC: SCU 13:25
PROVIDERS: ADMIT Family Medicine; ATTEND Family Medicine
DX: M06.9 Rheumatoid arthritis, unspecified; I82.402 Acute embolism and thrombosis of unspecified deep veins of left lower extremity; D64.9 Anemia, unspecified; R60.9 Edema, unspecified; R06.00 Dyspnea, unspecified; Z68.41 Body mass index [BMI] 40.0-44.9, adult; Z79.01 Long term (current) use of anticoagulants

== ENCOUNTER 2021-06-08 13:32 | Observation (INO) ==
[2021-06-08] MEDS ORDERED: MORPHINE 2 MG/ML VIAL IVP STA (13:58)
[2021-06-08] MEDS ORDERED: SODIUM CHLORIDE 1,000 ML IV STA ×2 (13:58→17:12)
[2021-06-08] MEDS ORDERED: ZOFRAN 4 MG/2 ML IVP ONE (13:58)
--- NOTE | 2021-06-08 14:05 | ED.PDOC ---
General ED Provider: Dr. SHERIN AVILA MD Chief Complaint: Non-specific Complaint Stated Complaint: mild to mod off and on NV and diffuse abdominal cramps today w/ shortness of breath, hx MD and PE in 2020, on eliquis, also familiar ache pain of the right elbow hx rheumatoid arthritis, +hx covid vaccine, GB surgery 05/16/21 Time Seen by Provider: 06/08/21 13:56 Mode of Arrival: Wheelchair Information Source: Patient Primary Care Provider: RUKHSANA SIMMS MD Nursing and Triage Documentation Reviewed and Agree: Yes Does patient meet sepsis criteria?: No System Inflammatory Response Syndrome: Not Applicable Sepsis Protocol: For patient's 13 years and over: Temp is 96.8 and below OR 101 and greater Pulse >90 BPM Resp >20/minute Acutely Altered Mental Status Are patient's symptoms suggestive of a new infection, such as: -Pneumonia -Skin, Soft Tissue -Endocarditis -UTI -Bone, Joint Infection -Implantable Device -Acute Abdominal Infection -Wound Infection -Meningitis -Blood Stream Catheter Infection -Unknown Review of Systems Review Of Systems Constitutional: Denies Fever Eyes: Denies Vision change Ears, Nose, Mouth, Throat: Denies Throat pain Respiratory: Reports Short of air Cardiac: Denies Chest pain GI: Reports Abdominal pain and Vomiting : Reports Flank pain Musculoskeletal: Reports Joint pain Skin: Denies Rash or Cyanosis Neurological: Denies Cognitive dysfunction All Other Systems: Other [facility] Medical History Arthritis Cough COVID-19 ruled out by clinical criteria DVT of left axillary vein, acute History of deep vein thrombosis (DVT) of lower extremity History of seasonal allergies Pain and swelling of left lower leg Pneumonia Family History FATHER Hypertension Diabetes Mother Hypertension Diabetes BROTHER Cancer Social History Smoking and tobacco status: Never smoker Passive smoking exposure: No Alcohol intake: never Substance use type: does not use Special mireya needs: No Agree to transfusion: Yes Adopted: No Caregiver/support person: No Foster care: No Household members: significant other Housing: house Marital status: M Daycare: no daycare Number of children: 3 Number of grandchildren: 11 Highest education level completed: 11th grade service: No detention: No Current occupational status: unemployed Current occupational exposures/hazards: No Pets and animals: Yes (2 dogs 2 birds) History of recent travel: No Sexually active: Yes Do you think of yourself as: straight/heterosexual Current gender identity: male Seatbelt use: always Drives intoxicated or rides with intoxicated transport truck driver: No Current diet type/program: regular Water heater temperature set < 120 degrees: Yes Working smoke detector in home: Yes Fire extinguisher in home: No Carbon monoxide detector in home: No Firearms in home: No Surgical History History of musculoskeletal system surgery Physical Exam Physical Exam Appearance: Reports Obese Ill-appearing: Mild Pain Distress: Mild Eyes: Reports PAWEL, EOMI and Conjunctiva clear ENT: Denies Rhinorrhea Neck: Supple Respiratory: Reports Airway patent, Breath sounds clear and Breath sounds equal Cardiovascular: Reports Tachycardia GI/: Reports Soft and Tender (no rebound) Musculoskeletal: Reports Other (tender right elbow, no sts, no heat, rom limited by pain, sen and pulses intact) Skin: Reports Warm and Dry Neurological: Reports Alert and Oriented Psychiatric: Reports Affect appropriate Interpretation Radiology Interpretation Radiology Interpretation By: Radiologist Exam Interpreted: CT Scan Xray Comments: +ileus, IVC filter on ct abd, on cta chest nondiagnostic Radiology Interpretation By: Radiologist Exam Interpreted: Other Xray Comments: degenerative dis of right elbow, no fx EKG Interpretation Time of EKG #1: 17:00 Rate: Normal Rhythm: Sinus Interpretation: no stemi Critical Care Note Critical Care Note Total Critical Care Time (mins): 0 Course Course Hematology/Chemistry: 06/08/21 14:07 06/08/21 14:07 Orders, Labs, Meds: Lab Review 06/08/21 06/08/21 06/08/21 14:07 14:07 14:07 WBC 7.72 RBC 3.57 L Hgb 10.0 L Hct 31.3 L MCV 87.7 MCH 28.0 MCHC 31.9 RDW Coeff of Shivam 17.4 H Plt Count 288 Immature Gran % (Auto) 0.3 Neut % (Auto) 62.5 Lymph % (Auto) 27.2 Garfield % (Auto) 8.3 Eos % (Auto) 1.2 Baso % (Auto) 0.5 Neut # (Auto) 4.8 Lymph # (Auto) 2.1 Garfield # (Auto) 0.6 Eos # (Auto) 0.1 Baso # (Auto) 0.0 Immature Gran # (Auto) 0.0 PT 15.0 H INR 1.47 Sodium 138.4 Potassium 2.85 L Chloride 109.3 H Carbon Dioxide 18.5 L Anion Gap 13.45 BUN 8.4 L Creatinine 0.72 Estimated GFR (MDRD) 115.00 BUN/Creatinine Ratio 11.66 Glucose 114.6 H Lactic Acid Calcium 8.38 L Total Bilirubin 1.18 AST 33.3 ALT 19.9 Alkaline Phosphatase 107.6 Troponin I < 0.012 Total Protein 7.83 Albumin 3.20 L Globulin 4.63 Albumin/Globulin Ratio 0.69 D-Dimer Adenovirus (PCR) B. pertussis DNA (PCR) B.parapertussis DNA PCR C. pneumoniae DNA (PCR) Coronavirus OC43 (PCR) Coronavirus HKU1 (PCR) Coronavirus 229E (PCR) Coronavirus NL63 (PCR) Human Metapneumovir PCR Influenza Type A (PCR) Influenza B (RT-PCR) M. pneumoniae (PCR) Parainfluenza 1 (PCR) Parainfluenza 2 (PCR) Parainfluenza 3 (PCR) Parainfluenza 4 (PCR) RSV (PCR) Entero/Rhino (PCR) SARS-CoV-2 (PCR) 06/08/21 06/08/21 06/08/21 14:07 14:33 15:43 WBC RBC Hgb Hct MCV MCH MCHC RDW Coeff of Shivam Plt Count Immature Gran % (Auto) Neut % (Auto) Lymph % (Auto) [place] % (Auto) Eos % (Auto) Baso % (Auto) Neut # (Auto) Lymph # (Auto) [place]field # (Auto) Eos # (Auto) Baso # (Auto) Immature Gran # (Auto) PT INR Sodium Potassium Chloride Carbon Dioxide Anion Gap BUN Creatinine Estimated GFR (MDRD) BUN/Creatinine Ratio Glucose Lactic Acid 2.95 H Calcium Total Bilirubin AST ALT Alkaline Phosphatase Troponin I Total Protein Albumin Globulin Albumin/Globulin Ratio D-Dimer 63704.11 H Adenovirus (PCR) Not detected B. pertussis DNA (PCR) Not detected B.parapertussis DNA PCR Not detected C. pneumoniae DNA (PCR) Not detected Coronavirus OC43 (PCR) Not detected Coronavirus HKU1 (PCR) Not detected Coronavirus 229E (PCR) Not detected Coronavirus NL63 (PCR) Not detected Human Metapneumovir PCR Detected H Influenza Type A (PCR) Not detected Influenza B (RT-PCR) Not detected M. pneumoniae (PCR) Not detected Parainfluenza 1 (PCR) Not detected Parainfluenza 2 (PCR) Not detected Parainfluenza 3 (PCR) Not detected Parainfluenza 4 (PCR) Not detected RSV (PCR) Not detected Entero/Rhino (PCR) Not detected SARS-CoV-2 (PCR) Not detected Orders Category Date Time Status EKG-(ED ONLY) Stat CARDIO 06/08/21 13:58 Completed NPO REMINDER: IMAGING ONCE CARE 06/08/21 15:53 Completed CBC W/ AUTO DIFF Stat LAB 06/08/21 14:07 Completed CMP [COMPREHENSIVE METABOLIC PANEL] Stat LAB 06/08/21 14:07 Completed D-DIMER Stat LAB 06/08/21 14:07 Completed LACTIC ACID Stat LAB 06/08/21 14:33 Completed PT WITH INR Stat LAB 06/08/21 14:07 Completed RESPIRATORY PANEL 2.1 (PCR) Stat LAB 06/08/21 15:43 Completed TROPONIN I Stat LAB 06/08/21 14:07 Completed Methylprednisolone Sod Succ/Pf [Solu-Medrol 125 mg] MEDS 06/08/21 15:07 Discontinued 125 mg IVP ONCE STA Morphine Sulfate [Morphine 2 mg/ml Vial (Medsurg Pyxis) MEDS 06/08/21 13:58 Discontinued ] 2 mg IVP ONCE STA Ondansetron HCl/Pf [Zofran 4 mg/2 ml] MEDS 06/08/21 13:58 Discontinued 4 mg IVP ONCE ONE Potassium Chloride [K-Dur] MEDS 06/08/21 14:46 Discontinued 40 meq PO ONCE ONE Sodium Chloride 0.9% [Sodium Chloride] 1,000 ml MEDS 06/08/21 13:58 Discon [address] IV B[address]US [address] ABDOMEN/PELVIS WO CONTRAST Stat RADS 06/08/21 13:[address] CHEST PE PROTOCOL Stat RADS 06/08/21 15:52 Completed ELBOW, RIGHT MIN 3 VIEWS Stat RADS 06/08/21 13:58 Completed Medications Discontinued Medications Generic Name Dose Route Start Last Admin Trade Name Freq PRN Reason Stop Dose Admin Sodium Chloride 1,000 mls @ 1,000 mls/hr 06/08/21 13:58 06/08/21 14:23 Sodium Chloride IV 06/08/21 14:57 1,000 mls/hr BOLUS STA Administration Methylprednisolone Sodium Succinate 125 mg 06/08/21 15:07 06/08/21 15:21 Methylprednisolone Sod Succ/Pf 125 Mg/2 Ml Vial IVP 06/08/21 15:08 125 mg ONCE STA Administration Morphine Sulfate 2 mg 06/08/21 13:58 06/08/21 14:50 Morphine Sulfate 2 Mg/Ml Vial IVP 06/08/21 13:59 2 mg ONCE STA Administration Ondansetron HCl 4 mg 06/08/21 13:58 06/08/21 14:23 Ondansetron Hcl/Pf 4 Mg/2 Ml Sdv IVP 06/08/21 13:59 4 mg ONCE ONE Administration Potassium Chloride 40 meq 06/08/21 14:46 06/08/21 14:50 Potassium Chloride 20 Meq Tab PO 06/08/21 14:47 40 meq ONCE ONE Administration Vital Signs: Temp Pulse Resp BP Pulse Ox 06/08/21 13:39 98.7 F 118 H 20 112/76 97 Discharge Plan Discharge Patient Disposition: PLACED OBSERVATION Discharge Problem: Ileus, Hypokalemia, Acute viral syndrome, Rheumatoid arthritis flare, D-dimer, elevated Prescriptions: No Action multivitamin [Daily Multiple] 1 EACH tablet 1 ea PO DAILY 0RF Rx Instructions: 1 tablet daily albuterol sulfate [Ventolin HFA] 90 mcg/actuation HFA aerosol inhaler 2 puff IH Q6H PRN (Reason: cough) Qty: 18 1RF carvedilol 3.125 mg tablet 3.125 mg PO BIDWM Qty: 180 1RF pantoprazole 20 mg tablet,delayed release (DR/EC) See Rx Instructions .ROUTE .COMPLEX Qty: 30 1RF Dose Instruction: TAKE ONE TABLET DAILY GENERIC FOR PROTONIX Rx Instructions: TAKE ONE TABLET DAILY GENERIC FOR PROTONIX (DME) SHOWER CHAIR Misc See Rx Instructions .ROUTE Qty: 1 0RF Rx Instructions: As directed acetaminophen [Tylenol Arthritis Pain] 650 mg tablet extended release 650 mg PO Q8H PRN (Reason: PAIN/FEVER) 0RF Eliquis 5 mg tablet 5 mg PO BID Qty: 60 5RF atorvastatin 20 mg tablet 20 mg PO BEDTIME Qty: 30 5RF folic acid 1 mg tablet 1 mg PO QDAY 0RF ED Provider: SHERIN AVILA Condition: Stable Physician Progress Note: []pt improved, pt cta chest nondiagnostic, will order am VQ scan, continue eliquis, clear liquid diet for ileus as tolerated w/ zofran prn, low K+ treated with replacement therapy and am serum K+, right elbow response to solumedrol and morphine so will continue prn, metapneumonia virus symptomatic treatment, admit to obs tele, care to Dr Mcleod at 7pm
[2021-06-08 14:15] LABS: BASOPHILS % (AUTO) 0.5 % (0.0-3.0); EOSINOPHILS # (AUTO) 0.1 K/ul (0.0-0.7); EOSINOPHILS % (AUTO) 1.2 % (0.0-7.0); HEMATOCRIT 31.3 % (42.0-52.0); IMMATURE GRANULOCYTE % (AUTO) 0.3 % (0.0-5.0); LYMPHOCYTES # (AUTO) 2.1 K/uL (0.60-3.4); LYMPHOCYTES % (AUTO) 27.2 (10.0-50.0); MEAN CORPUSCULAR HGB CONC 31.9 (31.8-35.4); MEAN CORPUSCULAR VOLUME 87.7 fl (80.0-94.0); MONOCYTES # (AUTO) 0.6 K/uL (0.4-2.0); MONOCYTES % (AUTO) 8.3 (0-10); NEUTROPHILS # (AUTO) 4.8 K/ul (2.0-6.9); NEUTROPHILS % (AUTO) 62.5 % (42.2-75.2); PLATELET COUNT 288 10^3/uL (140-440); RDW COEFFICIENT OF VARIATION 17.4 % (11.6-14.8); RED BLOOD COUNT 3.57 10^6/ul (4.70-6.10); WHITE BLOOD COUNT 7.72 K/ul (4.2-10.2)
[2021-06-08 14:27] LABS: ALANINE AMINOTRANSFERASE 19.9 U/L (0-50); ALKALINE PHOSPHATASE 107.6 U/L (38-126); ASPARTATE AMINO TRANSFERASE 33.3 U/L (17-59); BILIRUBIN,TOTAL 1.18 mg/dL (0.2-1.3); BLOOD UREA NITROGEN 8.4 mg/dL (9-20); CALCIUM 8.38 mg/dL (8.4-10.2); CARBON DIOXIDE 18.5 mmol/L (22-30.0); CHLORIDE 109.3 mmol/L (98-107); CREATININE 0.72 mg/dL (0.60-1.10); GLUCOSE 114.6 mg/dL (74-106); POTASSIUM 2.85 mmol/L (3.5-5.1); SODIUM 138.4 mmol/L (134.5-145); TOTAL PROTEIN 7.83 g/dL (6.3-8.2)
[2021-06-08 14:39] LABS: TROPONIN I < 0.012 ng/ml (0.0000-0.120)
[2021-06-08] MEDS ORDERED: K-DUR PO ONE (14:46)
--- NOTE | 2021-06-08 14:47 | CT ---
EXAM: CT scan abdomen pelvis without contrast HISTORY: Nausea vomiting COMPARISON: CT scan abdomen pelvis 04/02/2021 FINDINGS: Helically acquired axial images obtained pelvis utilizing 3-mm collimation. Sagittal and coronal reconstructions were imaged and reviewed.. The visualized lung bases are clear. There has b een prior cholecystectomy. Fatty infiltration is seen within the liver. The pancreas spleen and adr enal glands have normal unenhanced CT appearance. There is an IVC filter in place. The kidneys are morphologically normal.. There are prominent air and fluid filled loops of small bowel with the left abdomen which may related to ileus versus gastroenteritis. There is no free fluid. Prostate gland n ormal in size. The bladder is small volumed limiting evaluation. IMPRESSION: Status post cholecystectomy. IVC filter. Prominent small bowel left abdomen which may be related to ileus versus gastroenteritis. Fatty liver. No free fluid or inflammatory changes. All CT scans are performed using dose optimization techniques as appropriate to the performed exam an d include at least one of the following: Automated exposure control, adjustment of the mA and/or kV according t o size, and the use of iterative reconstruction technique.
--- NOTE | 2021-06-08 14:52 | DI ---
EXAM: Right elbow, three views HISTORY: Pain COMPARISON: None. 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 There is complete loss of pablo int space with articular sclerosis and diffuse osteophyte formation. Prominent posterior fat pad cons istent with joint effusion. No evidence of acute fracture or dislocation.
[2021-06-08] MEDS ORDERED: SOLU-MEDROL 125 MG IVP STA (15:07)
[2021-06-08 15:46] LABS: BORDETELLA PARAPERTUSSIS (PCR) NOT DETECTED (NOT DETECT); BORDETELLA PERTUSSIS (PCR) NOT DETECTED (NOT DETECT); CHLAMYDIA PNEUMONIAE (PCR) NOT DETECTED (NOT DETECT); CORONAVIRUS 229E (PCR) NOT DETECTED (NOT DETECT); CORONAVIRUS HKU1 (PCR) NOT DETECTED (NOT DETECT); CORONAVIRUS NL63 (PCR) NOT DETECTED (NOT DETECT); CORONAVIRUS OC43 (PCR) NOT DETECTED (NOT DETECT); HUMAN RHINOVIRUS/ENTEROV (PCR) NOT DETECTED (NOT DETECT); INFLUENZA B (PCR) NOT DETECTED (NOT DETECT); MYCOPLASMA PNEUMONIAE (PCR) NOT DETECTED (NOT DETECT); PARAINFLUENZA VIRUS 1 (PCR) NOT DETECTED (NOT DETECT); PARAINFLUENZA VIRUS 2 (PCR) NOT DETECTED (NOT DETECT); PARAINFLUENZA VIRUS 3 (PCR) NOT DETECTED (NOT DETECT); PARAINFLUENZA VIRUS 4 (PCR) NOT DETECTED (NOT DETECT); RESPIRATORY SYNCYTIAL V (PCR) NOT DETECTED (NOT DETECT); SARS_COV_2 (PCR) NOT DETECTED (NOT DETECT)
--- NOTE | 2021-06-08 16:41 | CT ---
EXAM: CT angiogram chest with intravenous contrast 06/08/2021. Multi planar reformatted images obta ined MIP and three-dimensional reconstructed images provided HISTORY: Elevated D-dimer COMPARISON: 04/02/2021 FINDINGS: Minimal contrast within the pulmonary arterial system. There is mistiming of image acquis ition and contrast bolus. This examination is nondiagnostic to evaluate for pulmonary embolus. The heart size appears within normal limits. There is a small pericardial effusion. Bilateral dependent atelectasis. This is more extensive on the left. There is no pulmonary consolid ation. No pleural effusion. No pneumothorax. Limited views of the upper abdomen shows no acute abnormality. Status post cholecystectomy. IMPRESSION: 1. Nondiagnostic examination to evaluate for pulmonary embolus. Repeat CT angiogram or VQ scan coul d be obtained. 2. Bilateral dependent atelectasis, left greater than right 3. Small pericardial effusion. 4. Status post cholecystectomy All CT scans are performed using dose optimization techniques as appropriate to the performed exam an d include at least one of the following: Automated exposure control, adjustment of the mA and/or kV according t o size, and the use of iterative reconstruction technique.
[2021-06-08 16:44] LABS: ADENOVIRUS (PCR) NOT DETECTED (NOT DETECT); HUMAN METAPNEUMOVIRUS (PCR) DETECTED (NOT DETECT)
[2021-06-08] MEDS ORDERED: ATROPINE SULFATE PFS IVP PRN (17:10)
[2021-06-08] MEDS ORDERED: TYLENOL PO PRN (17:10)
[2021-06-08] MEDS ORDERED: NITROSTAT SL PRN (17:10)
[2021-06-08] MEDS ORDERED: POTASSIUM CHL 10% ORAL SOL PO ONE (17:12)
[2021-06-08] MEDS ORDERED: ZOFRAN 4 MG/2 ML IVP STA (17:12)
[2021-06-08] MEDS ORDERED: MORPHINE 2 MG/ML VIAL IVP PRN (17:12)
[2021-06-08] MEDS ORDERED: VENTOLIN HFA (PER PUFF-WITH SPACER) IH PRN (17:16)
[2021-06-08] MEDS ORDERED: NON-FORMULARY MEDICATION (Acetaminophen [Tylenol Arthritis Pain] 650 mg tablet extended re PO PRN (18:01)
[2021-06-08 18:08] VITALS: BMI 34.5
[2021-06-08 19:00] LABS: BLOOD UREA NITROGEN 8.1 mg/dL (9-20); CALCIUM 7.99 mg/dL (8.4-10.2); CHLORIDE 110.5 mmol/L (98-107); CREATININE 0.75 mg/dL (0.60-1.10); GLUCOSE 128.3 mg/dL (74-106); POTASSIUM 3.6 mmol/L (3.5-5.1); SODIUM 138.4 mmol/L (134.5-145)
[2021-06-08] MEDS: ELIQUIS PO SCH (20:11)
[2021-06-08] MEDS ORDERED: LIPITOR PO SCH (21:00)
[2021-06-08 21:42] LABS: BILIRUBIN,URINE 1+ (NEGATIVE); CLARITY,URINE Clear (CLEAR); COLOR,URINE Yellow (YELLOW); GLUCOSE, URINE (UA) Negative (NEGATIVE); KETONES,URINE Negative (NEGATIVE); LEUKOCYTE ESTERASE ,URINE Negative (NEGATIVE); NITRITE,URINE Negative (NEGATIVE); PH,URINE 5.5 (5-9); PROTEIN,URINE 1+ (NEGATIVE); URINE, BLOOD Trace-intact (NEGATIVE)
[2021-06-08 21:49] LABS: SQUAMOUS EPITHELIAL CELL,UR 0-2 (0-5); URINE RBC, MICROSCOPIC 0-2 (0-2)
[2021-06-09 01:34] LABS: BASOPHILS % (AUTO) 0.3 % (0.0-3.0); HEMATOCRIT 29.9 % (42.0-52.0); HEMOGLOBIN 9.3 g/dl (14.0-18.0); IMMATURE GRANULOCYTE % (AUTO) 0.5 % (0.0-5.0); LYMPHOCYTES # (AUTO) 0.6 K/uL (0.60-3.4); LYMPHOCYTES % (AUTO) 16.2 (10.0-50.0); MEAN CORPUSCULAR HEMOGLOBIN 27.8 pg (27.0-31.0); MEAN CORPUSCULAR HGB CONC 31.1 (31.8-35.4); MEAN CORPUSCULAR VOLUME 89.3 fl (80.0-94.0); MONOCYTES % (AUTO) 0.8 (0-10); NEUTROPHILS # (AUTO) 3.2 K/ul (2.0-6.9); NEUTROPHILS % (AUTO) 82.2 % (42.2-75.2); PLATELET COUNT 249 10^3/uL (140-440); RDW COEFFICIENT OF VARIATION 17.4 % (11.6-14.8); RED BLOOD COUNT 3.35 10^6/ul (4.70-6.10); WHITE BLOOD COUNT 3.83 K/ul (4.2-10.2)
[2021-06-09 01:47] LABS: ALANINE AMINOTRANSFERASE 15.8 U/L (0-50); ALBUMIN 2.95 g/dL (3.5-5.0); ALKALINE PHOSPHATASE 100.1 U/L (38-126); ASPARTATE AMINO TRANSFERASE 28.1 U/L (17-59); BILIRUBIN,TOTAL 0.81 mg/dL (0.2-1.3); CALCIUM 8.15 mg/dL (8.4-10.2); CARBON DIOXIDE 23.3 mmol/L (22-30.0); CHLORIDE 110.4 mmol/L (98-107); CREATINE KINASE 38.7 U/L (55-170); CREATININE 0.83 mg/dL (0.60-1.10); GLUCOSE 229.3 mg/dL (74-106); POTASSIUM 3.86 mmol/L (3.5-5.1); TOTAL PROTEIN 7.31 g/dL (6.3-8.2)
[2021-06-09 01:58] LABS: TROPONIN I < 0.012 ng/ml (0.0000-0.120)
[2021-06-09 05:29] VITALS: BP 112/73; TEMP 97
[2021-06-09] MEDS ORDERED: PRILOSEC PO SCH (06:30)
[2021-06-09] MEDS: ELIQUIS PO SCH (08:22)
[2021-06-09] MEDS: FOLIC ACID PO SCH ×2 (08:22→08:33)
[2021-06-09] MEDS ORDERED: COREG PO SCH (08:30)
[2021-06-09] MEDS ORDERED: MULTIVITAMIN TABLET PO SCH (09:00)
[2021-06-09 09:38] LABS: CREATINE KINASE 43.6 U/L (55-170)
[2021-06-09 09:52] LABS: TROPONIN I < 0.012 ng/ml (0.0000-0.120)
--- NOTE | 2021-06-09 10:23 | PCM.DC ---
Final Diagnosis: Ileus, nausea and vomiting, anemia Reason for Hospitalization: Pt was admitted for and ileus with nausea and vomiting. Prognosis/Condition at Discharge: Good and Stable Medications at Discharge: Ambulatory Orders Medication Instructions Recorded multivitamin (Daily Multiple) 1 ea PO DAILY 10/03/18 folic acid 1 mg tablet 1 mg PO QDAY 08/08/19 acetaminophen 650 mg 650 mg PO Q8H PRN 08/31/19 tablet,extended release (Tylenol Arthritis Pain) albuterol sulfate 90 mcg/actuation 2 puff IH Q6H PRN #18 gm 04/03/20 aerosol inhaler (Ventolin HFA) carvedilol 3.125 mg tablet 3.125 mg PO BIDWM #180 tab 12/31/20 apixaban 5 mg tablet (Eliquis) 5 mg PO BID #60 tab 02/03/21 atorvastatin 20 mg tablet 20 mg PO BEDTIME #30 tab 02/03/21 C.SHOWERCHAIR (SHOWER CHAIR) #1 ea 05/01/21 pantoprazole 20 mg tablet,delayed 20 mg PO QDAC 06/08/21 release Education Provided to Patient and Family: Take the Zofran as needed for nausea. Talk to your doctor about you anemia and monitor it closely. Continue your Eliquis and if you develop and significant chetst pain or shortness of breath, return to ER for evaluation. Follow-ups: Your doctor in 2-3 days Discharge Disposition: Home Hospital Course: Pt was admitted and his diet was advanced. He was given medications and fluids. He has been able to advance his diet quickly and was able to eat a full breakfast this morning. There was some initial concern about a PE given his elevated d-dimer but he has a chronic DVT which would cause that to be chronically elevated. He has only occasional SOB with activity and denies any CP, has an IVC filter in place and finally is already on Eliquis. I discussed this with him and do not see a need for a VQ scan but did let the patient know that if his SOB changed or worsened or he developed and CP, he should return for reeval. I will prescribe Zofran and have him Follow-up with his doctor in 2-3 days. Plan: 1. Ileus/N/V: Prescribe Zofran and advance diet as tolerated. If sxs change or worsen, he can return to ER 2. Elevated D-Dimer: Continue Eliquis and return to ED for worsening SOB/CP 3. Anemia: Appears chronic but need to follow-up with his primary doctor for continued monitoring.
== END 2021-06-09 11:25 | disposition home or self-care (01) ==
LOC: ED 13:32 → MEDSURG A 13:32
PROVIDERS: ADMIT Emergency Medicine Emergency Medical Services; ATTEND Emergency Medicine
DX: Z20.822 Contact with and (suspected) exposure to COVID-19; R79.1 Abnormal coagulation profile; M06.9 Rheumatoid arthritis, unspecified; Z79.899 Other long term (current) drug therapy; K56.7 Ileus, unspecified; D64.9 Anemia, unspecified; Z79.01 Long term (current) use of anticoagulants

== ENCOUNTER 2021-08-17 18:51 | Inpatient (IN) ==
[2021-08-17] MEDS ORDERED: TORADOL IVP STA (19:29)
[2021-08-17 19:44] LABS: BASOPHILS # (AUTO) 0.1 K/uL (0-0.2); BASOPHILS % (AUTO) 1.3 % (0.0-3.0); EOSINOPHILS # (AUTO) 0.3 K/ul (0.0-0.7); EOSINOPHILS % (AUTO) 5.8 % (0.0-7.0); HEMATOCRIT 30.2 % (42.0-52.0); HEMOGLOBIN 9.1 g/dl (14.0-18.0); IMMATURE GRANULOCYTE % (AUTO) 0.2 % (0.0-5.0); LYMPHOCYTES # (AUTO) 1.5 K/uL (0.60-3.4); LYMPHOCYTES % (AUTO) 27.6 (10.0-50.0); MEAN CORPUSCULAR HEMOGLOBIN 27.4 pg (27.0-31.0); MEAN CORPUSCULAR HGB CONC 30.1 (31.8-35.4); MONOCYTES # (AUTO) 0.1 K/uL (0.4-2.0); MONOCYTES % (AUTO) 2.6 (0-10); NEUTROPHILS # (AUTO) 3.4 K/ul (2.0-6.9); NEUTROPHILS % (AUTO) 62.5 % (42.2-75.2); PLATELET COUNT 259 10^3/uL (140-440); RDW COEFFICIENT OF VARIATION 17.7 % (11.6-14.8); RED BLOOD COUNT 3.32 10^6/ul (4.70-6.10); WHITE BLOOD COUNT 5.39 K/ul (4.2-10.2)
--- NOTE | 2021-08-17 19:56 | ED.PDOC ---
General ED Provider: Dr. NIKOLAI RUSSELL Chief Complaint: Shortness of Air Stated Complaint: Patient is a 51 year old female who comes to the ER with shortness of breath and shoulder pain. Also feels chills. He is on Eliquis for history DVT and PEs Time Seen by Provider: 08/17/21 19:25 Mode of Arrival: Ambulance Information Source: Patient Primary Care Provider: RUKHSANA SIMMS MD Nursing and Triage Documentation Reviewed and Agree: Yes Does patient meet sepsis criteria?: No System Inflammatory Response Syndrome: Pulse >90 BPM Sepsis Protocol: For patient's 13 years and over: Temp is 96.8 and below OR 101 and greater Pulse >90 BPM Resp >20/minute Acutely Altered Mental Status Are patient's symptoms suggestive of a new infection, such as: -Pneumonia -Skin, Soft Tissue -Endocarditis -UTI -Bone, Joint Infection -Implantable Device -Acute Abdominal Infection -Wound Infection -Meningitis -Blood Stream Catheter Infection -Unknown Review of Systems Review Of Systems Constitutional: Reports Chills Eyes: Reports No symptoms Ears, Nose, Mouth, Throat: Reports No symptoms Respiratory: Reports Short of air Cardiac: Reports Edema GI: Reports No symptoms Musculoskeletal: Reports Back pain (shoulder area) and Joint swelling Skin: Reports No symptoms Neurological: Reports Anxiety Endocrine: Reports No symptoms All Other Systems: Reviewed and Negative [facility] Medical History Anemia Chronic anticoagulation COVID-19 DVT (deep venous thrombosis) Fatty liver Gait difficulty GERD (gastroesophageal reflux disease) Gout Hyperlipidemia Impairment of balance Non-compliant behavior NSTEMI (non-ST elevated myocardial infarction) Onychomycosis Osteoarthritis Poor dentition Presence of IVC filter Psoriasis Pulmonary embolism Rheumatoid arthritis Vision loss of left eye Family History FATHER Hypertension Diabetes Mother Hypertension Diabetes BROTHER Cancer Social History Smoking and tobacco status: Never smoker Passive smoking exposure: No Alcohol intake: never Substance use type: does not use Special mireya needs: No Agree to transfusion: Yes Adopted: No Caregiver/support person: No Foster care: No Household members: significant other Housing: house Marital status: M Daycare: no daycare Number of children: 3 Number of grandchildren: 11 Highest education level completed: 11th grade service: No senior care: No Current occupational status: unemployed Current occupational exposures/hazards: No Pets and animals: Yes (2 dogs 2 birds) History of recent travel: No Sexually active: Yes Do you think of yourself as: straight/heterosexual Current gender identity: male Seatbelt use: always Drives intoxicated or rides with intoxicated armored truck driver: No Current diet type/program: regular Water heater temperature set < 120 degrees: Yes Working smoke detector in home: Yes Fire extinguisher in home: No Carbon monoxide detector in home: No Firearms in home: No Surgical History History of cholecystectomy History of total right knee replacement (TKR) Physical Exam Physical Exam Appearance: Reports Well-appearing and Obese Ill-appearing: None Pain Distress: Moderate Eyes: Reports Conjunctiva clear ENT: Reports Nose normal and Oropharynx normal Neck: Not Examined Respiratory: Reports Airway patent, Breath sounds clear and Breath sounds equal Cardiovascular: Reports RRR, Pulses normal, No rub and No murmur GI/: Reports Soft, Nontender and Other (obese) Musculoskeletal: Reports ROM intact and Edema (3 + pitting on both lower ext with stasis dermatitis ) Skin: Reports Warm, Dry and Other (stasis dermatitis on the extremities ) Neurological: Reports Motor intact, Alert and Oriented Psychiatric: Reports Anxious Interpretation Radiology Interpretation Radiology Interpretation By: Radiologist Radiology Results: No acute changes (IMPRESSION: Stable cardiomediastinal silhouette. Subsegmental atelectasis left lung base) Exam Interpreted: CXR EKG Interpretation Time of EKG #1: 19:32 Rate: Normal Rhythm: Sinus (low voltage ) Ectopy: None [place]: NL ST Segment: Normal Interpretation: possible old anterior infarct with q waves in v1 and V2 Re-Evaluation Re-Evaluation Time of Re-Evaluation: 22:09 Status: Improved Vital Signs Stable: Yes Critical Care Note Critical Care Note Total Critical Care Time (mins): 30 Course Course Hematology/Chemistry: 08/17/21 19:40 08/17/21 19:40 Orders, Labs, Meds: Lab Review 08/17/21 08/17/21 08/17/21 19:40 19:40 20:00 WBC 5.39 RBC 3.32 L Hgb 9.1 L Hct 30.2 L MCV 91.0 MCH 27.4 MCHC 30.1 L RDW Coeff of Shivam 17.7 H Plt Count 259 Immature Gran % (Auto) 0.2 Neut % (Auto) 62.5 Lymph % (Auto) 27.6 [place] % (Auto) 2.6 Eos % (Auto) 5.8 Baso % (Auto) 1.3 Neut # (Auto) 3.4 Lymph # (Auto) 1.5 [place] # (Auto) 0.1 L Eos # (Auto) 0.3 Baso # (Auto) 0.1 Immature Gran # (Auto) 0.0 Sodium 140.0 Potassium 4.39 Chloride 114.9 H Carbon Dioxide 20.4 L Anion Gap 9.09 BUN 8.1 L Creatinine 0.65 Estimated GFR (MDRD) 129.00 BUN/Creatinine Ratio 12.46 Glucose 112.0 H Calcium 8.82 Total Bilirubin 0.67 AST 35.4 ALT 17.9 Alkaline Phosphatase 117.0 Total Creatine Kinase 42.2 L Troponin I < 0.012 NT-Pro-B Natriuret Pep 1520.000 H Total Protein 7.06 Albumin 2.96 L Globulin 4.10 Albumin/Globulin Ratio 0.72 SARS-CoV-2 Ag (Rapid) Negative Orders Category Date Time Status EKG-(ED ONLY) Stat CARDIO 08/17/21 19:09 Completed ED REAL ESTATE PROFESSIONAL APPLIED .ONCE EMERGENCY 08/17/21 19:29 Active IV [ED IV/MEDIPORT/POWERPORT] .ONCE EMERGENCY 08/17/21 19:05 Active CBC W/ AUTO DIFF Stat LAB 08/17/21 19:40 Completed COMPREHENSIVE METABOLIC PANEL Stat LAB 08/17/21 19:40 Completed COVID-19 ANTIGEN TEST Stat LAB 08/17/21 20:00 Completed CREATINE KINASE Stat LAB 08/17/21 19:40 Completed NT-PROBNP Stat LAB 08/17/21 19:40 Completed TROPONIN I Stat LAB 08/17/21 19:40 Completed 0.9 % Sodium Chloride [Saline Flush] MEDS 08/17/21 19:05 Active 1 syr IVF PRN PRN Furosemide [Lasix] MEDS 08/17/21 20:56 Discontinued 20 mg IVP ONCE STA Ketorolac Tromethamine [Toradol] MEDS 08/17/21 19:29 Discontinued 30 mg IVP ONCE STA CHEST, 1V AP ONLY Stat RADS 08/17/21 19:29 Completed Medications Generic Name Dose Route Start Last Admin Trade Name Freq PRN Reason Stop Dose Admin Furosemide 40 mg 08/18/21 06:30 Furosemide Inj 40 Mg/4 Ml Vial IVP QDAC ANUPAM Morphine Sulfate 2 mg 08/17/21 23:13 Morphine Sulfate 2 Mg/Ml Vial IVP Q4H PRN Severe Pain Ondansetron HCl 4 mg 08/17/21 22:10 Ondansetron Hcl/Pf 4 Mg/2 Ml Sdv IVP Q6H PRN Nausea / Vomiting Sodium Chloride 1 syr 08/17/21 19:05 0.9% Sodium Chloride 10 Ml Disp.Syrin IVF PRN PRN To flush IV Discontinued Medications Generic Name Dose Route Start Last Admin Trade Name Freq PRN Reason Stop Dose Admin Furosemide 20 mg 08/17/21 20:56 08/17/21 21:05 Furosemide Inj 20 Mg/2 Ml Vial IVP 08/17/21 20:57 20 mg ONCE STA Administration Ketorolac Tromethamine 30 mg 08/17/21 19:29 08/17/21 19:42 Ketorolac Tromethamine 30 Mg/Ml Vial IVP 08/17/21 19:30 30 mg ONCE STA Administration Vital Signs: Temp Pulse Resp BP Pulse Ox 08/17/21 18:53 98.8 F 102 H 20 128/86 100 Discharge Plan Discharge Patient Disposition: ADMITTED INPATIENT Discharge Problem: CHF (congestive heart failure) ED Provider: NIKOLAI RUSSELL Condition: Fair Physician Progress Note: []
[2021-08-17 20:03] LABS: ALANINE AMINOTRANSFERASE 17.9 U/L (0-50); ALBUMIN 2.96 g/dL (3.5-5.0); ASPARTATE AMINO TRANSFERASE 35.4 U/L (17-59); BILIRUBIN,TOTAL 0.67 mg/dL (0.2-1.3); BLOOD UREA NITROGEN 8.1 mg/dL (9-20); CALCIUM 8.82 mg/dL (8.4-10.2); CARBON DIOXIDE 20.4 mmol/L (22-30.0); CHLORIDE 114.9 mmol/L (98-107); CREATINE KINASE 42.2 U/L (55-170); CREATININE 0.65 mg/dL (0.60-1.10); POTASSIUM 4.39 mmol/L (3.5-5.1); TOTAL PROTEIN 7.06 g/dL (6.3-8.2)
[2021-08-17 20:16] LABS: TROPONIN I < 0.012 ng/ml (0.0000-0.120)
--- NOTE | 2021-08-17 20:22 | DI ---
EXAM: Portable chest HISTORY: Shortness of breath COMPARISON: Two-view chest 12/31/2020 FINDINGS: Examination was performed in a lordotic projection The heart is normal in size. Atheroscl erotic changes are seen involving the aortic arch. There is subsegmental atelectasis at the left amira g base. There is no consolidation or effusion. IMPRESSION: Stable cardiomediastinal silhouette. Subsegmental atelectasis left lung base
[2021-08-17] MEDS ORDERED: LASIX IVP STA (20:56)
[2021-08-17] MEDS ORDERED: ZOFRAN 4 MG/2 ML IVP PRN (22:10)
[2021-08-17] MEDS ORDERED: MORPHINE 2 MG/ML VIAL IVP PRN (23:13)
[2021-08-17] MEDS ORDERED: ATIVAN IVP ONE (23:15)
[2021-08-17] MEDS ORDERED: VENTOLIN HFA (PER PUFF-WITH SPACER) IH PRN (23:50)
[2021-08-18 00:13] VITALS: BMI 37.0
[2021-08-18] MEDS: FOLIC ACID PO SCH ×2 (00:58→09:42)
[2021-08-18 04:26] LABS: BASOPHILS # (AUTO) 0.1 K/uL (0-0.2); EOSINOPHILS # (AUTO) 0.3 K/ul (0.0-0.7); EOSINOPHILS % (AUTO) 6.1 % (0.0-7.0); HEMATOCRIT 29.2 % (42.0-52.0); HEMOGLOBIN 8.9 g/dl (14.0-18.0); IMMATURE GRANULOCYTE % (AUTO) 0.2 % (0.0-5.0); LYMPHOCYTES % (AUTO) 38.6 (10.0-50.0); MEAN CORPUSCULAR HEMOGLOBIN 27.8 pg (27.0-31.0); MEAN CORPUSCULAR HGB CONC 30.5 (31.8-35.4); MEAN CORPUSCULAR VOLUME 91.3 fl (80.0-94.0); MONOCYTES # (AUTO) 0.2 K/uL (0.4-2.0); MONOCYTES % (AUTO) 3.5 (0-10); NEUTROPHILS # (AUTO) 2.6 K/ul (2.0-6.9); NEUTROPHILS % (AUTO) 50.6 % (42.2-75.2); PLATELET COUNT 319 10^3/uL (140-440); RDW COEFFICIENT OF VARIATION 17.8 % (11.6-14.8); WHITE BLOOD COUNT 5.11 K/ul (4.2-10.2)
[2021-08-18 04:41] LABS: ALANINE AMINOTRANSFERASE 17.5 U/L (0-50); ALBUMIN 3.18 g/dL (3.5-5.0); ALKALINE PHOSPHATASE 110.4 U/L (38-126); ASPARTATE AMINO TRANSFERASE 33.9 U/L (17-59); BILIRUBIN,TOTAL 0.63 mg/dL (0.2-1.3); BLOOD UREA NITROGEN 8.5 mg/dL (9-20); CALCIUM 8.86 mg/dL (8.4-10.2); CARBON DIOXIDE 26.7 mmol/L (22-30.0); CHLORIDE 109.8 mmol/L (98-107); CREATINE KINASE 216.1 U/L (55-170); CREATININE 0.91 mg/dL (0.60-1.10); GLUCOSE 82.8 mg/dL (74-106); POTASSIUM 4.05 mmol/L (3.5-5.1); SODIUM 140.4 mmol/L (134.5-145); TOTAL PROTEIN 7.32 g/dL (6.3-8.2)
[2021-08-18 04:53] LABS: TROPONIN I < 0.012 ng/ml (0.0000-0.120)
[2021-08-18 04:56] LABS: CREATINE KINASE MB 0.657 ng/ml (0.0-2.38)
[2021-08-18] MEDS: PRILOSEC PO SCH (05:59)
[2021-08-18] MEDS ORDERED: LASIX IVP SCH (06:30)
[2021-08-18] MEDS: COREG PO SCH ×2 (09:41→18:00)
[2021-08-18] MEDS: MULTIVITAMIN TABLET PO SCH (09:42)
[2021-08-18] MEDS: ELIQUIS PO SCH ×2 (09:43→21:02)
[2021-08-18] MEDS: BACTROBAN TP SCH ×2 (10:28→21:02)
[2021-08-18 12:33] LABS: CREATINE KINASE 144.2 U/L (55-170)
--- NOTE | 2021-08-18 12:43 | ECHO2D ---
Date of Exam: 08/18/2021 Room #: [id number] Ordering Physician: DR. RUSSELL (HOSP.), REBECA GALARZA APRN Reason for Echo: ELEVATED BNP, DYSPNEA, CHEST PAIN M-Mode Normal Adult Results LV Dimensions Normal Adult Results AoV Opening excursions >1.6 >1.6 LVEDD-base- 3.5-5.8 4.5 Ao root dimensions 2.0-3.7 3.9 LVESD-base- 3.1-4.6 L. Atrium dimensions 1.9-3.8 4.1 Post. Wall thickness 0.8-1.1 1.3 IV septum (thickness) 0.7-1.2 1.5 Post. Wall excursion 0.72-1.3 NORMAL Septal motion NORMAL Systolic motion R. Ventricular cavity 1.5-2.0 4.0 LVEF 60% 59% Paradoxical septal wall motion NORMAL 2-D : DILATED AORTIC ROOT, ENLARGED LEFT ATRIAL CAVITY, NORMAL VALVES, NORMAL LEFT VENTRICULAR CONTRACTILITY, ENLARGED RIGHT VENTRICLE CAVITY, NO EFFUSION, NO THROMBUS, NORMAL LEFT VENTRICLE SIZE M-MODE: MV: NORMAL AV: NORMAL TV: NORMAL PV: CHAMBER SIZE: ENLARGED LEFT ATRIAL AND RIGHT VENTRICLE CAVITIES. WALL MOTION: NORMAL PERICARDIUM: NORMAL INTERPRETATION: 1. MODERATE LEFT VENTRICULAR HYPERTROPHY. 2. ENLARGED LEFT ATRIAL CAVITY. 3. ENLARGED RIGHT VENTRICLE CAVITY. 4. MILDLY DILATED AORTIC ROOT. 5. NORMAL LEFT VENTRICLE CONTRACTILITY. 6. NORMAL LEFT VENTRICLE SIZE. 7. NORMAL VALVES. 8. UNCHANGED FROM ECHO 10/29/2020. [facility]
[2021-08-18 12:47] LABS: TROPONIN I < 0.012 ng/ml (0.0000-0.120)
[2021-08-18 12:48] LABS: CREATINE KINASE MB 0.483 ng/ml (0.0-2.38)
[2021-08-18] MEDS ORDERED: LIPITOR PO SCH (21:00)
--- NOTE | 2021-08-19 04:10 | PCM.PROG ---
Date Seen by Provider: 08/18/21 Time Seen by Provider: 12:00 Subjective: Date of admit - 08/17/21 HPI - 51 y/o admit with acute CHF episode. Patient states he feels better, less dyspnea, less leg edema. Objective: Vitals: T=98.2 F, P=83, R=18, BP=91/54, SPO2=96 HEENT: [WNL] Neck: [supple] Lungs: clear[] CVS: [RRR] Abdomen: [soft] Extremities: [intact, minimal edema] Neurological: [intact] Skin: no acute change[] Lab/Tests/Diagnostic Imaging: [Refer to chart. Chronic anemia. Chem OK. BNP not repeated.] (1) CHF (congestive heart failure): Status: Acute Code(s): I50.9 - Heart failure, unspecified SNOMED Code(s): 45299916 Assessment: Acute episode - improved. Monitor labs, BP tends to run low, perhaps overly diuresed. Dr. Monroy read his echo today. This is Dr. Rosen patient. Plan: Labs in the morning. Reduce lasix from 40 mg to 20 mg.
[2021-08-19] MEDS: PRILOSEC PO SCH (05:31)
[2021-08-19 06:05] LABS: BASOPHILS # (AUTO) 0.1 K/uL (0-0.2); BASOPHILS % (AUTO) 1.5 % (0.0-3.0); EOSINOPHILS # (AUTO) 0.3 K/ul (0.0-0.7); EOSINOPHILS % (AUTO) 6.2 % (0.0-7.0); HEMATOCRIT 29.3 % (42.0-52.0); HEMOGLOBIN 9.2 g/dl (14.0-18.0); IMMATURE GRANULOCYTE % (AUTO) 0.2 % (0.0-5.0); LYMPHOCYTES # (AUTO) 1.9 K/uL (0.60-3.4); LYMPHOCYTES % (AUTO) 34.2 (10.0-50.0); MEAN CORPUSCULAR HEMOGLOBIN 27.9 pg (27.0-31.0); MEAN CORPUSCULAR HGB CONC 31.4 (31.8-35.4); MEAN CORPUSCULAR VOLUME 88.8 fl (80.0-94.0); MONOCYTES # (AUTO) 0.4 K/uL (0.4-2.0); MONOCYTES % (AUTO) 6.5 (0-10); NEUTROPHILS # (AUTO) 2.8 K/ul (2.0-6.9); NEUTROPHILS % (AUTO) 51.4 % (42.2-75.2); PLATELET COUNT 296 10^3/uL (140-440); RDW COEFFICIENT OF VARIATION 17.7 % (11.6-14.8)
[2021-08-19 06:19] LABS: ALANINE AMINOTRANSFERASE 14.9 U/L (0-50); ALBUMIN 3.17 g/dL (3.5-5.0); ALKALINE PHOSPHATASE 112.6 U/L (38-126); ASPARTATE AMINO TRANSFERASE 33.3 U/L (17-59); BILIRUBIN,TOTAL 0.76 mg/dL (0.2-1.3); BLOOD UREA NITROGEN 12.2 mg/dL (9-20); CALCIUM 8.74 mg/dL (8.4-10.2); CARBON DIOXIDE 28.6 mmol/L (22-30.0); CHLORIDE 106.4 mmol/L (98-107); CREATININE 0.8 mg/dL (0.60-1.10); GLUCOSE 80.8 mg/dL (74-106); POTASSIUM 3.87 mmol/L (3.5-5.1); SODIUM 136.3 mmol/L (134.5-145); TOTAL PROTEIN 7.58 g/dL (6.3-8.2)
[2021-08-19] MEDS ORDERED: LASIX IVP SCH (06:30)
[2021-08-19] MEDS: FOLIC ACID PO SCH (08:15)
[2021-08-19] MEDS: BACTROBAN TP SCH (08:15)
[2021-08-19] MEDS: COREG PO SCH (08:15)
[2021-08-19] MEDS: ELIQUIS PO SCH (08:16)
[2021-08-19] MEDS: MULTIVITAMIN TABLET PO SCH (08:16)
[2021-08-19 10:41] VITALS: BP 110/76; TEMP 98.2
--- NOTE | 2021-08-20 09:12 | PCM.DC ---
Final Diagnosis: CHF, LVH Leg Edema Physical Exam Appearance: Well-appearing and Well-nourished Ill-appearing: Mild Pain Distress: Not Applicable Eyes: PAWEL, EOMI, Conjunctiva clear, Right pupil size and Left pupil size ENT: Ears normal, Nose normal and Oropharynx normal Neck: Supple (No JVD) Respiratory: Airway patent, Breath sounds clear and Breath sounds equal Cardiovascular: RRR, Pulses normal and No rub GI/: Soft, Nontender, No masses, Bowel sounds normal and No Organomegaly Musculoskeletal: Normal strength, ROM intact and No edema Skin: Warm, Dry and Normal color Neurological: Sensation intact, Motor intact, Reflexes intact, Cranial nerves intact, Alert and Oriented Psychiatric: Affect appropriate, Mood appropriate and Anxious (1) CHF (congestive heart failure): Status: Acute Code(s): I50.9 - Heart failure, unspecified SNOMED Code(s): 58990831 Reason for Hospitalization: Date of admit - 08/17/21 admitted with acute CHF episode, increased lower extremity edema. Today patient states he feels better, less dyspnea, less leg edema. on 08/13 US revealed Deep venous thrombus left lower extremity with new deep venous thrombus compared with the prior examination as described-on [facility] Prognosis/Condition at Discharge: Fair/good Medications at Discharge: Ambulatory Orders Medication Instructions Recorded multivitamin (Daily Multiple) 1 ea PO DAILY 10/03/18 folic acid 1 mg tablet 1 mg PO QDAY 08/08/19 acetaminophen 650 mg 650 mg PO Q8H PRN 08/31/19 tablet,extended release (Tylenol Arthritis Pain) apixaban 5 mg tablet (Eliquis) 5 mg PO BID #60 tab 02/03/21 atorvastatin 20 mg tablet 20 mg PO BEDTIME #30 tab 02/03/21 C.SHOWERCHAIR (SHOWER CHAIR) #1 ea 06/11/21 carvedilol 3.125 mg tablet 3.125 mg PO BIDWM #180 tab 07/24/21 albuterol sulfate 90 mcg/actuation 2 puff IH Q6H PRN #18 gm 08/01/21 aerosol inhaler (Ventolin HFA) pantoprazole 20 mg tablet,delayed 20 mg PO QDAC #30 tab 08/05/21 release ibuprofen 200 mg capsule 200 mg PO Q6H PRN 08/13/21 mupirocin 2 % topical ointment 1 applic TOPICAL BID #22 g 08/13/21 Lab/Diagnostics: See chart Education Provided to Patient and Family: YES Follow-ups: PCP 1 week Discharge Disposition: Home Hospital Course: Admitted, treated with diuretics, had good urine output with reduction in edema and improved respirations. Echocardiogram completed on 08/18 INTERPRETATION: 1.MODERATE LEFT VENTRICULAR HYPERTROPHY. 2. ENLARGED LEFT ATRIAL CAVITY. 3. ENLARGED RIGHT VENTRICLE CAVITY. 4. MILDLY DILATED AORTIC ROOT. 5. NORMAL LEFT VENTRICLE CONTRACTILITY. 6. NORMAL LEFT VENTRICLE SIZE. 7. NORMAL VALVES. 8. UNCHANGED FROM ECHO 10/29/2020. Plan: Discharged to home, meds reviewed, close outpatient follow up PCP ,
== END 2021-08-19 12:00 | disposition home or self-care (01) | DRG 292 ==
LOC: ED 18:51 → MEDSURG A 22:04
PROVIDERS: ADMIT Family Medicine; ATTEND Emergency Medicine
DX: M19.90 Unspecified osteoarthritis, unspecified site; Z86.718 Personal history of other venous thrombosis and embolism; K21.9 Gastro-esophageal reflux disease without esophagitis; I25.2 Old myocardial infarction; Z79.01 Long term (current) use of anticoagulants; I51.7 Cardiomegaly; Z20.822 Contact with and (suspected) exposure to COVID-19; R06.02 Shortness of breath; R60.9 Edema, unspecified; R68.83 Chills (without fever); J98.11 Atelectasis; I50.9 Heart failure, unspecified; M25.519 Pain in unspecified shoulder; F41.9 Anxiety disorder, unspecified; M54.9 Dorsalgia, unspecified; Z86.16 Personal history of COVID-19; Z51.81 Encounter for therapeutic drug level monitoring; Z79.899 Other long term (current) drug therapy